=== PATIENT | male | born 1950 | race African-American/Black ===

== ENCOUNTER 2017-09-29 19:29 | Emergency (ER) | payer OTHER, MEDICARE ==
[2017-09-29] MEDS: ACETAMINOPHEN 500 MG TABLET PO (20:32)
[2017-09-29] MEDS: KETOROLAC 60 MG/2 ML INJ. IM (20:32)
== END 2017-09-29 20:53 | disposition home or self-care (01) ==
LOC: ER 19:29
DX: S13.4XXA Sprain of ligaments of cervical spine, initial encounter (principal); I10 Essential (primary) hypertension; E11.9 Type 2 diabetes mellitus without complications; Z88.0 Allergy status to penicillin; V43.52XA Car driver injured in collision with other type car in traffic accident, initial encounter; Y93.I9 Activity, other involving external motion; Y92.410 Unspecified street and highway as the place of occurrence of the external cause; Y99.8 Other external cause status
CPT/HCPCS: 96372; 99283; J1885

== ENCOUNTER 2020-01-13 11:20 | Inpatient (IN) | payer MEDICARE, OTHER ==
[~2020-01-13] VITALS: Ht 177.8 cm; Wt 109.0 kg
[~2020-01-13 11:20] MED LIST: ACET325T9 PO; DIAZ5TAB PO; HYDR-3164 PO; NAPR-683 PO; VALA10008 PO
[2020-01-13 12:26] LABS: BASO % 1 % (0-3); EOS % 1 % (0-3); HEMATOCRIT 35.8 % (39.0-53.0); HEMOGLOBIN 12.1 g/dL (13.0-17.5); LYMPH # 0.6 x10^3/uL (1.0-4.8); LYMPH % 8 % (24-48); MEAN CORPUSCULAR HEMOGLOBIN 29 pg (25-35); MEAN CORPUSCULAR HGB CONC 34 g/dL (31-37); MEAN CORPUSCULAR VOLUME 86 fL (79-100); MONO # 0.9 x10^3/uL (0.0-1.1); MONO % 12 % (0-9); NEUT # 5.7 x10^3/uL (1.8-7.7); NEUT % 79 % (31-73); PLATELET COUNT 238 x10^3/uL (140-400); RED BLOOD COUNT 4.14 x10^6/uL (4.30-5.70); RED CELL DISTRIBUTION WIDTH 14.6 % (11.5-14.5); WHITE BLOOD COUNT 7.2 x10^3/uL (4.0-11.0)
[2020-01-13 12:34] LABS: CALCIUM 7.7 mg/dL (8.5-10.1); CREATININE 3.9 mg/dL (0.7-1.3); GFR 18.5; POTASSIUM 3.5 mmol/L (3.5-5.1)
--- NOTE | 2020-01-13 12:36 | RAD ---
EXAM: AP View of the chest DATE: 01/13/2020 12:06 PM INDICATION: bilateral leg swelling hx of CHF COMPARISON: No Prior FINDINGS: Heart is borderline enlarged. Aorta is tortuous. Mild bilateral interstitial prominence. Trace bilateral pleural effusions. No pneumothorax. IMPRESSION: Borderline cardiomegaly with interstitial prominence and trace pleural effusions may be seen with early interstitial edema. No lobar consolidation Electronically signed by: Stoney Menendez MD (01/13/2020 12:32 PM) [id number]
[2020-01-13 12:37] LABS: PROTHROMBIN TIME PATIENT 13.9 SEC (11.7-14.0)
[2020-01-13 12:40] LABS: ALBUMIN 2.4 g/dL (3.4-5.0); ALBUMIN/GLOBULIN RATIO 0.6 (1.0-1.7); MAGNESIUM 1.8 mg/dL (1.8-2.4); TOTAL BILIRUBIN 0.3 mg/dL (0.2-1.0); TOTAL PROTEIN 6.6 g/dL (6.4-8.2)
--- NOTE | 2020-01-13 13:19 | PHYS DOC ---
Past Medical History Past Medical History: CHF, Diabetes-Type II, Hypertension Past Surgical History: No Surgical History Additional Past Surgical Histo: ROTATOR CUFF, THUMB, leg infection Smoking Status: Never Smoker Alcohol Use: Occasionally Drug Use: None General Adult EDM: Chief Complaint: LOWER EXTREMITY SWELLING HPI: HPI: Patient is a 69 year old AA male, accompanied by his significant other, who presents to the emergency department with complaints of bilateral leg swelling for the last week. Patient states that he has a history of congestive heart failure and he is supposed to take Lasix but he has been out of his medication for the last 2 weeks. Patient denies any shortness of breath, chest pain, palpitations, fever, cough, abdominal pain, nausea, vomiting, diarrhea, back pain, dysuria, difficulty voiding, hematuria, headache, numbness, tingling, or weakness. Patient denies any redness, warmth, or rash affecting his lower extremities. Patient denies any pain at this time. Patient denies any exposure to any known ill persons, he states that he has been keeping to himself with the onset of the COVID pandemic. His significant other states that yesterday the patient did have some confusion, he was talking to his daughter that lives here locally and mistook her for his daughter [place]. Patient is alert and oriented to person, place, day, and president at this time. He denies any confusion. Review of Systems: Review of Systems: Constitutional: Denies fever or chills. [] Eyes: Denies change in visual acuity. [] HENT: Denies nasal congestion or sore throat. [] Respiratory: Denies cough or shortness of breath. [] Cardiovascular: Denies chest pain or edema. [] GI: Denies abdominal pain, nausea, vomiting, bloody stools or diarrhea. [] : Denies dysuria. [] Musculoskeletal: Denies back pain or joint pain; see HPI [] Integument: Denies rash; see HPI. [] Neurologic: Denies headache, focal weakness or sensory changes; see HPI [] Endocrine: Denies polyuria or polydipsia. [] Lymphatic: Denies swollen glands. [] Psychiatric: Denies depression or anxiety. [] Heart Score: Risk Factors: Risk Factors: DM, Current or recent (<one month) smoker, HTN, HLP, family history of CAD, obesity. Risk Scores: Score 0 - 3: 2.5% MACE over next 6 weeks - Discharge Home Score 4 - 6: 20.3% MACE over next 6 weeks - Admit for Clinical Observation Score 7 - 10: 72.7% MACE over next 6 weeks - Early Invasive Strategies Allergies: Allergies: Allergies Coded Allergies Type Severity Reaction Last Updated Verified Penicillins Allergy Unknown 02/02/16 Yes Physical Exam: PE: Constitutional: Well developed, well nourished, no acute distress, non-toxic appearance, obese. [] HENT: Normocephalic, atraumatic, bilateral external ears normal, oropharynx moist, no oral exudates, nose normal. [] Eyes: PERRLA, EOMI, conjunctiva normal, no discharge, no nystagmus. [] Neck: Normal range of motion, no stridor. [] Cardiovascular:Heart rate regular rhythm, no murmur [] Lungs & Thorax: Bilateral breath sounds clear to auscultation, Respirations even and unlabored, no retractions, no respiratory distress [] Abdomen:soft, no tenderness, no masses, no pulsatile masses. [] Skin: Warm, dry, no erythema, no rash. [] Back: No tenderness Extremities: BLE: No tenderness, no cyanosis, no clubbing, ROM intact, 3+ edema bilateral lower extremities, no erythema, no weeping Neurologic: Alert and oriented X 3, normal motor function, normal sensory function, no focal deficits noted. [] Psychologic: Affect normal, judgement normal, mood normal. [] Current Patient Data: Labs: Laboratory Tests Test 01/13/20 11:50 White Blood Count 7.2 x10^3/uL (4.0-11.0) Red Blood Count 4.14 x10^6/uL (4.30-5.70) L Hemoglobin 12.1 g/dL (13.0-17.5) L Hematocrit 35.8 % (39.0-53.0) L Mean Corpuscular Volume 86 fL (79-100) Mean Corpuscular Hemoglobin 29 pg (25-35) Mean Corpuscular Hemoglobin Concent 34 g/dL (31-37) Red Cell Distribution Width 14.6 % (11.5-14.5) H Platelet Count 238 x10^3/uL (140-400) Neutrophils (%) (Auto) 79 % (31-73) H Lymphocytes (%) (Auto) 8 % (24-48) L Monocytes (%) (Auto) 12 % (0-9) H Eosinophils (%) (Auto) 1 % (0-3) Basophils (%) (Auto) 1 % (0-3) Neutrophils # (Auto) 5.7 x10^3/uL (1.8-7.7) Lymphocytes # (Auto) 0.6 x10^3/uL (1.0-4.8) L Monocytes # (Auto) 0.9 x10^3/uL (0.0-1.1) Eosinophils # (Auto) 0.0 x10^3/uL (0.0-0.7) Basophils # (Auto) 0.0 x10^3/uL (0.0-0.2) Prothrombin Time 13.9 SEC (11.7-14.0) Prothrombin Time INR 1.1 (0.8-1.1) Activated Partial Thromboplast Time 39 SEC (24-38) H Sodium Level 135 mmol/L (136-145) L Potassium Level 3.5 mmol/L (3.5-5.1) Chloride Level 100 mmol/L (98-107) Carbon Dioxide Level 24 mmol/L (21-32) Anion Gap 11 (6-14) Blood Urea Nitrogen 46 mg/dL (8-26) H Creatinine 3.9 mg/dL (0.7-1.3) H Estimated GFR (Cockcroft-Gault) 18.5 BUN/Creatinine Ratio 12 (6-20) Glucose Level 235 mg/dL (70-99) H Calcium Level 7.7 mg/dL (8.5-10.1) L Magnesium Level 1.8 mg/dL (1.8-2.4) Total Bilirubin 0.3 mg/dL (0.2-1.0) Aspartate Amino Transferase (AST) 26 U/L (15-37) Alanine Aminotransferase (ALT) 31 U/L (16-63) Alkaline Phosphatase 58 U/L (46-116) Troponin I Quantitative < 0.017 ng/mL (0.000-0.055) UU-Fbu-Z-Type Natriuretic Peptide 623 pg/mL (0-124) H Total Protein 6.6 g/dL (6.4-8.2) Albumin 2.4 g/dL (3.4-5.0) L Albumin/Globulin Ratio 0.6 (1.0-1.7) L Lipase 109 U/L (73-393) Laboratory Tests 01/13/20 11:50 Laboratory Tests 01/13/20 11:50 Vital Signs: Vital Signs Date Time Temp Pulse Resp B/P (MAP) Pulse Ox O2 Delivery O2 Flow Rate FiO2 01/13/20 11:25 98.9 103 16 173/103 (126) 97 Room Air 98.9 EKG: EK-sinus rhythm rate of 100 with leftward axis, QRS(T) Contour abnormality consider anterior lateral myocardial damage, no STEMI, read by Dr. Vázquez [] Radiology/Procedures: Radiology/Procedures: PROCEDURE: CHEST AP ONLY EXAM: AP View of the chest DATE: 01/13/2020 12:06 PM INDICATION: bilateral leg swelling hx of CHF COMPARISON: No Prior FINDINGS: Heart is borderline enlarged. Aorta is tortuous. Mild bilateral interstitial prominence. Trace bilateral pleural effusions. No pneumothorax. IMPRESSION: Borderline cardiomegaly with interstitial prominence and trace pleural effusions may be seen with early interstitial edema. No lobar consolidation[] Course & Med Decision Making: Course & Med Decision Making Pertinent Labs and Imaging studies reviewed. (See chart for details)[id number] with Dr. Miller who is the admitting physician, and care was ass umed following discussion of patient. Will consult nephrology and cardiology for this patient. Patient's vital signs stable. Patient remains afebrile, appears nontoxic, respirations even and unlabored. Patient will be admitted to the med telemetry floor. Patient's case and plan of care also discussed with Dr. Gurpreet Pal Disclaimer: Demarco Disclaimer: This electronic medical record was generated, in whole or in part, using a voice recognition dictation system. Departure Departure Impression: Primary Impression: CHF (congestive heart failure) Qualified Codes: I50.9 - Heart failure, unspecified Additional Impressions: CRF (chronic renal failure) Qualified Codes: N18.9 - Chronic kidney disease, unspecified Bilateral lower extremity edema Disposition: ADMITTED INPATIENT Admitting Physician: PK Olmedo) Condition: STABLE Referrals: UNKNOWN PCP NAME (PCP) Justicifation of Admission Dx: Justifications for Admission: Justification of Admission Dx: Yes Chronic Renal Failure: Other (ble edema) JASPER JIANG VAPOR COATER Jan 13, 2020 13:19
--- NOTE | 2020-01-13 13:41 | RAD ---
Examination: Bilateral venous Doppler Indication: Leg swelling Technique: Ultrasound evaluation of the bilateral lower extremities was performed from the groin to the upper calf with mcclendon scale, spectral and color doppler evaluation. Comparison: None Findings: There is normal venous flow and compressibility of bilateral common femoral veins, femoral veins, popliteal veins, and visualized proximal calf veins. Impression: No evidence for deep vein thrombosis of bilateral lower extremities from the level of the calf veins to the groins. Electronically signed by: Stoney Menendez MD (01/13/2020 1:38 PM) [id number]
--- NOTE | 2020-01-13 13:57 | EKG ---
[facility] [address] [place] [address] Test Date: 2020-01-13 Test Time: 12:32:00 Pat Name: JOSEFA SHANNON Department: Room: 648 1 Gender: M Field Checker: : 1950 Requested By: JASPER JIANG Order Number: [id number] Reading MD: Artemio He MD Measurements Intervals Pillow Rate: 100 P: 24 IN: 176 QRS: -26 QRSD: 84 T: 61 QT: 356 QTc: 462 Interpretive Statements SINUS RHYTHM LAD NON-SPECIFIC ST/T CHANGES Electronically Signed On 01-14-2020 11:18:12 CDT by Artemio He MD
[2020-01-13 15:00] VITALS: BP 153/92
--- NOTE | 2020-01-13 15:00 | NUR ---
Pt arrived on unit by bed from ER at approx 1500. Pt ambulated to bathroom and voided. Water provided, call light within reach, and upper bedrails up. Pt denying pain at this time, no additional requests made. This RN will assume care of this pt and monitor closely.
[2020-01-13] MEDS ORDERED: METF10007 PO (16:24)
[2020-01-13] MEDS ORDERED: AMLO10TA8 PO (16:25)
[2020-01-13 19:40] VITALS: BP 177/106
[2020-01-13] MEDS: ACETAMINOPHEN 325 MG TABLET. PO PRN (20:44)
[2020-01-13] MEDS: METOPROLOL TART IMMED RELEASE 25 MG TABLET. PO SCH (20:44)
--- NOTE | 2020-01-13 22:27 | HP ---
ADMIT DATE: 01/13/2020 CHIEF COMPLAINT: Lower extremity edema. HISTORY OF PRESENT ILLNESS: The patient is a pleasant 69-year-old male who apparently has not been taking his medications as prescribed. He states he has been out of Lasix for at least 2 weeks. He presents with lower extremity edema. While in the Emergency Room, we noticed that his pressure is quite high at 179/104. He also has 2-3+ edema. His creatinine is also bumped at 3.9. He is slightly anemic with a hemoglobin of 12.1 slightly hyponatremic with a sodium of 135. His BNP level is also high at 639. Chest x-ray showing cardiomegaly with some pulmonary edema. I discussed the case with Emergency Room physician. We are going to admit the patient to treat for near end-stage renal disease and heart failure. PAST MEDICAL HISTORY: Severe noncompliance, diabetes, hypertension, congestive heart failure, rotator cuff surgery, thumb surgery, leg surgery after an infection in his leg. ALLERGIES: PENICILLIN. FAMILY HISTORY: Diabetes. SOCIAL HISTORY: He does not drink, smoke or take drugs. MEDICATIONS: Reviewed, please refer to the MRAD. REVIEW OF SYSTEMS: GENERAL: No history of weight change, weakness or fevers. SKIN: No bruising, hair changes or rashes. EYES: No blurred, double or loss of vision. NOSE AND THROAT: No history of nosebleeds, hoarseness or sore throat. HEART: No history of palpitations, chest pain or shortness of breath on exertion. PULMONARY: He complains of shortness of breath. GASTROINTESTINAL: Denies changes in appetite, nausea, vomiting, diarrhea or constipation. GENITOURINARY: No history of frequency, urgency, hesitancy or nocturia. NEUROLOGIC: Denies history of numbness, tingling, tremor or weakness. PSYCHIATRIC: No history of panic, anxiety or depression. ENDOCRINE: No history of heat or cold intolerance, polyuria or polydipsia. EXTREMITIES: He complains of edema. PHYSICAL EXAMINATION: VITALS: Within normal limits and are stable. GENERAL: No apparent distress. Alert and oriented. HEENT: Normal cephalic atraumatic, external auditory canals are patent EYES: Extraocular muscles are intact, pupils are equally round and reactive to light and accommodation MUSKULOSKELETAL: Well developed, well nourished, good range of motion ENDOCRINE: No thyromegaly was palpated LYMPHATICS: No cervical chain or axillary nodes were noted HEMATOPOIETIC: No bruising NECK: Supple, no JVD, no thyromegaly was noted. PULMONARY: He has bibasilar crackles. HEART: RRR, S1, S2 present. Peripheral pulses intact, no obvious murmurs were noted. ABDOMEN: Soft, nontender. Positive bowel sounds no organomegaly, normal bowel sounds. EXTREMITIES: He has 3+ edema. NEUROLOGIC: Normal speech, normal tone. A & O x3, moves all extremities, no obvious focal deficits. PSYCHIATRIC: He appears depressed. SKIN: No ulcerations or rashes, good skin turgor, no jaundice. VASCULAR: Good capillary refill, neurovascular bundle appears to be intact. LABORATORY DATA: Sodium is 135, creatinine is 3.9, BUN 46. Troponin is 0. BNP 623, hemoglobin is 12.1, INR is 1.1. ASSESSMENT AND PLAN: [id number] systolic and diastolic heart failure, chronic renal failure, anemia, hyponatremia; patient is being admitted. We will consult Cardiology and Nephrology. I would like to try to diurese him, but I am afraid we might bump his creatinine again further. We will hold off until morning and see how the consultants would like to approach this; trend his labs. We will try to resume his home medications, deep venous thrombosis prophylaxis. Full code. Lactic acid level, serial enzymes, serial EKGs. Suspect he will need an echocardiogram. Fall precautions sequential compression devices, p.r.n. Tylenol. I have ordered some metoprolol 25 b.i.d. Long-term prognosis is extremely guarded. RYLEE HERNANDEZ DO DR: JESS/aron JOB#: [id number] / [id number]
[2020-01-13 23:44] VITALS: BP 172/92
[2020-01-14 00:49] LABS: BILIRUBIN,URINE NEGATIVE (NEG); CLARITY,URINE CLEAR; COLOR,URINE YELLOW; NITRITE,URINE NEGATIVE (NEG); PH,URINE 5.5 (<5.0-8.0); PROTEIN,URINE >=300 mg/dL (NEG-TRACE)
[2020-01-14 01:19] LABS: BACTERIA,URINE 0 /HPF (0-FEW); HYALINE CASTS, URINE FEW /HPF; SQUAMOUS EPITHELIAL CELL,UR FEW /LPF
[2020-01-14 03:10] VITALS: BP 145/80
[2020-01-14 07:34] VITALS: BP 153/92
[2020-01-14] MEDS: METOPROLOL TART IMMED RELEASE 25 MG TABLET. PO SCH ×2 (07:54→21:00)
--- NOTE | 2020-01-14 10:02 | PDOC ---
[facility] PROGRESS NOTE Chief Complaint Chief Complaint Acute on chronic systolic and diastolic heart failure Severe edema Hyponatremia Severe renal failure Severe noncompliance, diabetes, hypertension, congestive heart failure, rotator cuff surgery, thumb surgery, leg surgery after an infection in his leg. History of Present Illness History of Present Illness 01/14/2020 Patient seen and examined He is still edematous and short of breath Family present Discussed with RN We are going to check a post void residual and place a Freitas if necessary Chart reviewed Vitals/I&O Vitals/I&O: Vital Signs Date Time Temp Pulse Resp B/P (MAP) Pulse Ox O2 Delivery O2 Flow Rate FiO2 01/14/20 08:00 Nasal Cannula 2.0 01/14/20 07:54 87 153/92 01/14/20 07:34 99.3 22 94 99.3 I & O 01/13/20 01/13/20 01/14/20 15:00 23:00 07:00 Intake Total 100 ml 60 ml Output Total 300 ml 450 ml Balance -200 ml -390 ml Physical Exam General: Alert, mild distress Heart: Regular rate Lungs: Crackles Abdomen: Normal bowel sounds, Other (Distended) Extremities: Other Skin: No rashes, No breakdown Labs Labs: Laboratory Tests Test 01/13/20 11:50 01/13/20 12:50 01/14/20 00:15 White Blood Count 7.2 x10^3/uL (4.0-11.0) Red Blood Count 4.14 x10^6/uL (4.30-5.70) Hemoglobin 12.1 g/dL (13.0-17.5) Hematocrit 35.8 % (39.0-53.0) Mean Corpuscular Volume 86 fL (79-100) Mean Corpuscular Hemoglobin 29 pg (25-35) Mean Corpuscular Hemoglobin Concent 34 g/dL (31-37) Red Cell Distribution Width 14.6 % (11.5-14.5) Platelet Count 238 x10^3/uL (140-400) Neutrophils (%) (Auto) 79 % (31-73) Lymphocytes (%) (Auto) 8 % (24-48) Monocytes (%) (Auto) 12 % (0-9) Eosinophils (%) (Auto) 1 % (0-3) Basophils (%) (Auto) 1 % (0-3) Neutrophils # (Auto) 5.7 x10^3/uL (1.8-7.7) Lymphocytes # (Auto) 0.6 x10^3/uL (1.0-4.8) Monocytes # (Auto) 0.9 x10^3/uL (0.0-1.1) Eosinophils # (Auto) 0.0 x10^3/uL (0.0-0.7) Basophils # (Auto) 0.0 x10^3/uL (0.0-0.2) Prothrombin Time 13.9 SEC (11.7-14.0) Prothromb Time International Ratio 1.1 (0.8-1.1) Activated Partial Thromboplast Time 39 SEC (24-38) Sodium Level 135 mmol/L (136-145) Potassium Level 3.5 mmol/L (3.5-5.1) Chloride Level 100 mmol/L (98-107) Carbon Dioxide Level 24 mmol/L (21-32) Anion Gap 11 (6-14) Blood Urea Nitrogen 46 mg/dL (8-26) Creatinine 3.9 mg/dL (0.7-1.3) Estimated GFR (Cockcroft-Gault) 18.5 BUN/Creatinine Ratio 12 (6-20) Glucose Level 235 mg/dL (70-99) Calcium Level 7.7 mg/dL (8.5-10.1) Magnesium Level 1.8 mg/dL (1.8-2.4) Total Bilirubin 0.3 mg/dL (0.2-1.0) Aspartate Amino Transf (AST/SGOT) 26 U/L (15-37) Alanine Aminotransferase (ALT/SGPT) 31 U/L (16-63) Alkaline Phosphatase 58 U/L (46-116) Troponin I Quantitative < 0.017 ng/mL (0.000-0.055) JF-Pln-O-Type Natriuretic Peptide 623 pg/mL (0-124) Total Protein 6.6 g/dL (6.4-8.2) Albumin 2.4 g/dL (3.4-5.0) Albumin/Globulin Ratio 0.6 (1.0-1.7) Lipase 109 U/L (73-393) Lactic Acid Level 0.9 mmol/L (0.4-2.0) Urine Collection Type Unknown Urine Color Yellow Urine Clarity Clear Urine pH 5.5 (<5.0-8.0) Urine Specific Riparius 1.015 (1.000-1.030) Urine Protein >=300 mg/dL (NEG-TRACE) Urine Glucose (UA) Negative mg/dL (NEG) Urine Ketones (Stick) Negative mg/dL (NEG) Urine Blood Negative (NEG) Urine Nitrite Negative (NEG) Urine Bilirubin Negative (NEG) Urine Urobilinogen Dipstick 1.0 mg/dL (0.2 mg/dL) Urine Leukocyte Esterase Negative (NEG) Urine RBC 1-2 /HPF (0-2) Urine WBC 1-4 /HPF (0-4) Urine Squamous Epithelial Cells Few /LPF Urine Bacteria 0 /HPF (0-FEW) Urine Hyaline Casts Few /HPF Urine Mucus Slight /LPF Review of Systems Review of Systems: Complains of shortness of breath and weakness and edema Assessment and Plan Assessmemt and Plan Problems Medical Problems: (1) Bilateral lower extremity edema Status: Acute (2) CHF (congestive heart failure) Status: Acute (3) CRF (chronic renal failure) Status: Acute Acute on chronic systolic and diastolic heart failure Severe edema Hyponatremia Severe hypertension Severe renal failure Severe noncompliance with diet and meds, diabetes, hypertension, congestive heart failure, rotator cuff surgery, thumb surgery, leg surgery after an infection in his leg. Plan Awaiting subspecialist input Considering Lasix but I am concerned about his kidney function I am having the nurse check a post void residual perhaps he has BPH? (Then we could place a Freitas) Trend labs Cardiac monitoring Serial enzymes serial EKGs Considering echocardiogram Considering ultrasound of the kidneys As needed O2 DVT prophylaxis Home meds Full code Long-term prognosis extremely guarded Total time 32 Comment Review of Relevant I have reviewed the following items reji (where applicable) has been applied. Medications: Current Medications Medications (Trade) Dose Ordered Sig/Julián Route PRN Reason Start Time Stop Time Status Last Admin Dose Admin Metoprolol Tartrate (Lopressor) 25 mg BID PO 01/13/20 21:00 01/14/20 07:54 Acetaminophen (Tylenol) 650 mg PRN Q6HRS PRN PO MILD PAIN / TEMP > 100.3'F 01/13/20 20:15 01/13/20 20:44 Justicifation of Admission Dx: Justifications for Admission: Justification of Admission Dx: Yes Respiratory Failure: Severe Resp Distress Chronic Renal Failure: Electrolyte Abnormality RYLEE HERNANDEZ III DO Jan 14, 2020 10:02
--- NOTE | 2020-01-14 11:22 | NUR ---
SW following for discharge planning. Reviewed chart and coordinated care with RN. SW met with pt and family at bedside. Pt stated he lives at home with his and stated no concerns about returning home at discharge. Pt stated he drives. Pt on 2l 02 and will need 02 setup if 02 is needed at discharge. SW following for potential new dialysis setup. Pt on oral medications at this time. SW to continue following.
[2020-01-14 11:25] VITALS: BP 162/97
--- NOTE | 2020-01-14 11:41 | CONS ---
DATE OF CONSULTATION: 01/14/2020 REASON FOR CONSULTATION: Heart failure. HISTORY OF PRESENT ILLNESS: The patient is a very pleasant 69-year-old man who presents to the hospital in the setting of progressive dyspnea and lower extremity swelling. He reports over the course of the last several weeks, he has had intermittent worsening of cough and dyspnea. He also reports lower extremity edema. He has not had any arrhythmias or subjective palpitations. He has not had any syncope. He at baseline is able to mow his yard using a riding mower, but he does not participate in any other activities of daily living. He is mostly living a sedentary lifestyle. He reports compliance with his medications for hypertension. PAST MEDICAL HISTORY: 1. Hypertension. 2. Diabetes. 3. History of diastolic heart failure based on family description. 4. History of noncompliance. ALLERGIES: PENICILLIN. FAMILY HISTORY: Notable for diabetes. SOCIAL HISTORY: No alcohol, tobacco or illicit drug use. He lives at home with his . Today in the room, his daughter and his sister were present. CURRENT CARDIOVASCULAR MEDICATIONS: Metoprolol tartrate 25 mg p.o. b.i.d. REVIEW OF SYSTEMS: Negative for 10 out of 14 systems reviewed, unless otherwise mentioned above in HPI. PHYSICAL EXAMINATION: VITAL SIGNS: Afebrile, 87, 22, 153/92, 94% on 2 liters nasal cannula. GENERAL: He is alert and oriented, no acute distress. HEAD AND NECK: Unremarkable. CARDIAC: Regular rate and rhythm without murmurs, rubs or gallops. LUNGS: With decreased breath sounds at bases. ABDOMEN: Obese, protuberant, nontender. EXTREMITIES: 2+ radial pulses with 1+ edema of the lower extremities. NEUROLOGIC: No focal deficits. MUSCULOSKELETAL: No trauma. SKIN: No rashes. DIAGNOSTIC STUDIES: Hemoglobin, platelets within normal limits. Creatinine is elevated at 3.9. Troponin is negative. EKG is unremarkable. BNP is mildly elevated at 623. Chest x-ray is suggestive of mild pulmonary edema and pleural effusions. Echocardiogram is pending. IMPRESSION: 1. Acute on chronic diastolic heart failure in the setting of chronic kidney disease and hypertension. 2. Diabetes. 3. Morbid obesity. RECOMMENDATIONS: 1. At this present time, agree with a renal consultation and diuresis with Lasix as tolerated. 2. We will plan for a routine echocardiogram to assess his LV systolic function. 3. We could consider a right heart catheterization depending on renal input. 4. Continue aggressive treatment for his diabetes. He could use hydralazine and Imdur for blood pressure management, incentive MELITA inhibitor depending on what his chronic kidney disease status is. Thank you for this consultation. MARCOS FENTON MD DR: ALESSANDRA/aron JOB#: [id number] / [id number]
--- NOTE | 2020-01-14 13:50 | PDOC2 ---
CONSULT Date of Consult Date of Consult DATE: 01/14/20 TIME: 13:32 Reason for Consult Reason for Consult: WAYNE Source Source: Chart review, Patient History of Present Illness Reason for Visit: Pt is a 69- AAM who presents to the hospital in the setting of progressive dyspnea and lower extremity swelling. He reports over the course of the last several weeks, he has had intermittent worsening of cough and dyspnea and lower extremity edema. He is mostly living a sedentary lifestyle. Denies any CP , currently No SOb at rest. Denies any N/V/D . No Urinary complaints. Denies use of NSAID's . No Hx of Nephrolithiasis or BPH Past Medical History Past Medical History Hypertension. Diabetes. History of diastolic heart failure based on family description. History of noncompliance. Family History Family History Notable for diabetes. Social History Social History No alcohol, tobacco or illicit drug use. He lives at home with his . Current Problem List Problem List Problems Medical Problems: (1) Bilateral lower extremity edema Status: Acute (2) CHF (congestive heart failure) Status: Acute (3) CRF (chronic renal failure) Status: Acute Current Medications Current Medications Current Medications Metoprolol Tartrate (Lopressor) 25 mg BID PO Last administered on 01/14/20at 07:54; Start 01/13/20 at 21:00 Acetaminophen (Tylenol) 650 mg PRN Q6HRS PRN PO MILD PAIN / TEMP > 100.3'F Last administered on 01/13/20at 20:44; Start 01/13/20 at 20:15 Active Scripts Active Reported Amlodipine Besylate 10 Mg Tablet 10 Mg PO DAILY Metformin Hcl 1,000 Mg Tablet 1,000 Mg PO BIDWMEALS Allergies Allergies: Coded Allergies: Penicillins (Verified Allergy, Unknown, 02/02/16) ROS Review of System Negative for 10 out of 14 systems reviewed, unless otherwise mentioned above in HPI. Physical Exam Physical Exam GENERAL: , no acute distress. HEAD AND NECK: Unremarkable, OM moist, O2 2 lts by NC CARDIAC: Regular rate and rhythm without murmurs, rubs or gallops. LUNGS: With decreased breath sounds at bases., no use of accessory muscles ABDOMEN: Obese, nontender. EXTREMITIES: Trace LE edema NEUROLOGIC: No focal deficits. MUSCULOSKELETAL: No trauma. SKIN: No rashes No Freitas, No CVA or SP tenderness Vital Signs Vital Signs Date Time Temp Pulse Resp B/P (MAP) Pulse Ox O2 Delivery O2 Flow Rate FiO2 01/14/20 11:25 99.0 82 20 162/97 (118) 94 Nasal Cannula 2.0 99.0 Assessment & Plan WAYNE- ATN/Cardiorenal/ r/o Post Obstructive Baseline unknown to me , UA unremarkable except for Overt proteinuria Pt Not aware of Dx of Kidney disease , No labs this am Recommend renal US,Pr/Cr ratio , Bladder scan, Freitas if retention , Avoid nephrotoxins , Supportive care, strict I/O , Daily standing weight , daily Labs HypoNatremia - Corrected for high Glucose Na Normal DM - Only on Metformin per Home list Acute on chronic diastolic heart failure in the setting of chronic kidney disease and hypertension. CxR suggestive of mild pulmonary edema and pleural effusions., Echo pending , clinically stable Diuretics cardiology managing, Morbid obesity Labs Labs Laboratory Tests Test 01/13/20 11:50 01/13/20 12:50 01/14/20 00:15 01/14/20 11:44 White Blood Count 7.2 x10^3/uL (4.0-11.0) Red Blood Count 4.14 x10^6/uL (4.30-5.70) Hemoglobin 12.1 g/dL (13.0-17.5) Hematocrit 35.8 % (39.0-53.0) Mean Corpuscular Volume 86 fL (79-100) Mean Corpuscular Hemoglobin 29 pg (25-35) Mean Corpuscular Hemoglobin Concent 34 g/dL (31-37) Red Cell Distribution Width 14.6 % (11.5-14.5) Platelet Count 238 x10^3/uL (140-400) Neutrophils (%) (Auto) 79 % (31-73) Lymphocytes (%) (Auto) 8 % (24-48) Monocytes (%) (Auto) 12 % (0-9) Eosinophils (%) (Auto) 1 % (0-3) Basophils (%) (Auto) 1 % (0-3) Neutrophils # (Auto) 5.7 x10^3/uL (1.8-7.7) Lymphocytes # (Auto) 0.6 x10^3/uL (1.0-4.8) Monocytes # (Auto) 0.9 x10^3/uL (0.0-1.1) Eosinophils # (Auto) 0.0 x10^3/uL (0.0-0.7) Basophils # (Auto) 0.0 x10^3/uL (0.0-0.2) Prothrombin Time 13.9 SEC (11.7-14.0) Prothromb Time International Ratio 1.1 (0.8-1.1) Activated Partial Thromboplast Time 39 SEC (24-38) Sodium Level 135 mmol/L (136-145) Potassium Level 3.5 mmol/L (3.5-5.1) Chloride Level 100 mmol/L (98-107) Carbon Dioxide Level 24 mmol/L (21-32) Anion Gap 11 (6-14) Blood Urea Nitrogen 46 mg/dL (8-26) Creatinine 3.9 mg/dL (0.7-1.3) Estimated GFR (Cockcroft-Gault) 18.5 BUN/Creatinine Ratio 12 (6-20) Glucose Level 235 mg/dL (70-99) Calcium Level 7.7 mg/dL (8.5-10.1) Magnesium Level 1.8 mg/dL (1.8-2.4) Total Bilirubin 0.3 mg/dL (0.2-1.0) Aspartate Amino Transf (AST/SGOT) 26 U/L (15-37) Alanine Aminotransferase (ALT/SGPT) 31 U/L (16-63) Alkaline Phosphatase 58 U/L (46-116) Troponin I Quantitative < 0.017 ng/mL (0.000-0.055) MF-Bls-T-Type Natriuretic Peptide 623 pg/mL (0-124) Total Protein 6.6 g/dL (6.4-8.2) Albumin 2.4 g/dL (3.4-5.0) Albumin/Globulin Ratio 0.6 (1.0-1.7) Lipase 109 U/L (73-393) Lactic Acid Level 0.9 mmol/L (0.4-2.0) Urine Collection Type Unknown Urine Color Yellow Urine Clarity Clear Urine pH 5.5 (<5.0-8.0) Urine Specific [place] 1.015 (1.000-1.030) Urine Protein >=300 mg/dL (NEG-TRACE) Urine Glucose (UA) Negative mg/dL (NEG) Urine Ketones (Stick) Negative mg/dL (NEG) Urine Blood Negative (NEG) Urine Nitrite Negative (NEG) Urine Bilirubin Negative (NEG) Urine Urobilinogen Dipstick 1.0 mg/dL (0.2 mg/dL) Urine Leukocyte Esterase Negative (NEG) Urine RBC 1-2 /HPF (0-2) Urine WBC 1-4 /HPF (0-4) Urine Squamous Epithelial Cells Few /LPF Urine Bacteria 0 /HPF (0-FEW) Urine Hyaline Casts Few /HPF Urine Mucus Slight /LPF Glucose (Fingerstick) 113 mg/dL (70-99) Laboratory Tests Test 01/14/20 00:15 01/14/20 11:44 Urine Collection Type Unknown Urine Color Yellow Urine Clarity Clear Urine pH 5.5 (<5.0-8.0) Urine Specific [place] 1.015 (1.000-1.030) Urine Protein >=300 mg/dL (NEG-TRACE) Urine Glucose (UA) Negative mg/dL (NEG) Urine Ketones (Stick) Negative mg/dL (NEG) Urine Blood Negative (NEG) Urine Nitrite Negative (NEG) Urine Bilirubin Negative (NEG) Urine Urobilinogen Dipstick 1.0 mg/dL (0.2 mg/dL) Urine Leukocyte Esterase Negative (NEG) Urine RBC 1-2 /HPF (0-2) Urine WBC 1-4 /HPF (0-4) Urine Squamous Epithelial Cells Few /LPF Urine Bacteria 0 /HPF (0-FEW) Urine Hyaline Casts Few /HPF Urine Mucus Slight /LPF Glucose (Fingerstick) 113 mg/dL (70-99) Review All relevant outside records, renal labs, imaging studies, telemetry/EKG's were reviewed. Images Images Borderline cardiomegaly with interstitial prominence and trace pleural effusions may be seen with early interstitial edema. No lobar consolidation MARTINEZ GANT MD Jan 14, 2020 13:50
--- NOTE | 2020-01-14 15:00 | CARD ---
MR#: [id number] Date of Study: 01/14/2020 Ordering Physician: MARCOS FENTON, Referring Physician: MARCOS FENTON, Tech: Sweetie Sullivan [facility] APPROVED REPORT EXAM: Two-dimensional and M-mode echocardiogram with Doppler and color Doppler. Other Information Quality : Fair INDICATION Heart Failure 2D DIMENSIONS RVDd2.6 (2.9-3.5cm)Left Atrium(2D)4.0 (1.6-4.0cm) IVSd1.4 (0.7-1.1cm)Aortic Root(2D)2.9 (2.0-3.7cm) LVDd4.6 (3.9-5.9cm)LVOT Diameter2.2 (1.8-2.4cm) PWd1.4 (0.7-1.1cm)LVDs3.7 (2.5-4.0cm) FS (%) 21.4 %SV43.3 ml LVEF(%)45.0 (>50%) Aortic Valve AoV Peak Jigar.178.2cm/sAoV VTI26.1cm AO Peak GR.12.7mmHgLVOT Peak Jigar.114.3cm/s AO Mean GR.7mmHgAVA (VMAX)2.34cm2 BRADLEY (VTI)2.80cm2 Mitral Valve MV E Wtiwxavv072.7cm/sMV DECEL BPZN432sh MV A Tdkglrnt236.9cm/sE/A Ratio1.1 Pulmonary Vein S1 Czbovzzz16.0cm/sD2 Rxrfqfbs30.0cm/s LEFT VENTRICLE The left ventricle is normal size. There is mild to moderate concentric left ventricular hypertrophy. Left ventricle systolic function is normal. The Ejection Fraction is 55%. There is normal LV segment al wall motion. RIGHT VENTRICLE The right ventricle is normal size. The right ventricular systolic function is normal. ATRIA The left atrium is mildly dilated. The right atrium size is normal. The interatrial septum is intact with no evidence for an atrial septal defect or patent foramen ovale as noted on 2-D or Doppler imagi ng. AORTIC VALVE The aortic valve is mildly thickened but opens well. Doppler and Color Flow revealed trace to mild ao rtic regurgitation. There is no significant aortic valvular stenosis. MITRAL VALVE The mitral valve is calcified but opens well. Mitral annular calcification is mild. There is no evide nce of mitral valve prolapse. There is no mitral valve stenosis. Doppler and Color-flow revealed trac e mitral regurgitation. TRICUSPID VALVE The tricuspid valve is normal in structure and function. Doppler and Color Flow revealed trace tricus pid regurgitation. There is no tricuspid valve stenosis. PULMONIC VALVE The pulmonic valve is not well visualized. Doppler and Color Flow revealed no pulmonic valvular regur gitation. There is no pulmonic valvular stenosis. GREAT VESSELS The aortic root is normal in size. The ascending aorta is normal in size. The IVC is normal in size a nd collapses >50% with inspiration. PERICARDIAL EFFUSION There is no evidence of significant pericardial effusion. Critical Notification Critical Value: No <Conclusion> Left ventricle systolic function is normal. The Ejection Fraction is 55%. There is normal LV segmental wall motion. Trace to mild aortic regurgitation. Trace mitral regurgitation. Trace tricuspid regurgitation. There is no evidence of significant pericardial effusion. Signed by : Lev Smith, Electronically Approved : 01/14/2020 15:00:01
[2020-01-14 15:15] VITALS: BP 156/87
--- NOTE | 2020-01-14 15:37 | RAD ---
EXAM: Renal sonogram. HISTORY: Renal insufficiency. TECHNIQUE: Sonographic imaging of the kidneys and bladder was performed. COMPARISON: None. FINDINGS: The kidneys are normal in size. There are simple appearing bilateral renal cysts, the largest of which on the right measures 3.8 cm and the largest of which on the left measures 7.1 cm. No solid renal lesion is seen. There is no hydronephrosis. There is a Freitas catheter within the urinary bladder. IMPRESSION: 1. Multiple simple appearing renal cysts. 2. No hydronephrosis. Electronically signed by: Bessie Johnson MD (01/14/2020 3:34 PM) [facility]
[2020-01-14 15:51] LABS: CREATININE,RANDOM URINE 118.9 mg/dL (Not Establ.)
[2020-01-14 19:40] VITALS: BP 161/99
[2020-01-14] MEDS: ACETAMINOPHEN 325 MG TABLET. PO PRN (22:54)
[2020-01-15] VITALS (7 sets, daily range): BP systolic 161–188; BP diastolic 91–104
[2020-01-15 04:31] LABS: ALBUMIN 1.9 g/dL (3.4-5.0); CALCIUM 7.7 mg/dL (8.5-10.1); CREATININE 3.8 mg/dL (0.7-1.3); GFR 19.1; PHOSPHORUS 4.4 mg/dL (2.6-4.7); POTASSIUM 3.2 mmol/L (3.5-5.1)
[2020-01-15] MEDS: amLODIPine BESYLATE 10 MG TABLET PO SCH (08:26)
[2020-01-15] MEDS: METOPROLOL TART IMMED RELEASE 25 MG TABLET. PO SCH (08:28)
--- NOTE | 2020-01-15 09:46 | PDOC ---
SUBJECTIVE ROS No complaints by Pt, Per Rn last evening pt confused , more short of breath, better after eating Food Daughter feels he is little more sob but LE edema much improved OBJECTIVE Vital Signs Vital Signs Date Time Temp Pulse Resp B/P (MAP) Pulse Ox O2 Delivery O2 Flow Rate FiO2 01/15/20 08:28 83 172/101 01/15/20 08:00 Nasal Cannula 2.0 01/15/20 07:26 99.8 20 91 99.8 I & 0 Intake and Output 01/15/20 07:00 Intake Total 840 ml Output Total 1950 ml Balance -1110 ml Intake Oral 840 ml Output Urine Total 1950 ml PHYSICAL EXAM Physical Exam GENERAL: Mild distress HEAD AND NECK: Unremarkable, OM moist, O2 2 lts by NC CARDIAC: Regular rate and rhythm without murmurs, rubs or gallops. LUNGS: decreased breath sounds at bases., ABDOMEN: Obese, nontender. EXTREMITIES: Trace LE edema NEUROLOGIC: No focal deficits. MUSCULOSKELETAL: No trauma. SKIN: No rashes matthews + DIAGNOSIS/ASSESSMENT Assessment & Plan WAYNE- ATN/ stable renal function Baseline unknown to me , UA unremarkable except for Overt proteinuria Pt Not aware of Dx of Kidney disease , Obtain recent labs from PCP's office no hydronephrosis on Renal US, Avoid nephrotoxins , Supportive care, strict I/O , Daily standing weight , daily Labs Renal Cysts - simple appearing bilateral renal cysts, the largest of which on the right measures 3.8 cm and the largest of which on the left measures 7.1 cm. No solid renal lesion is seen. Suspect CKD - Hx of HTN and DM Overt proteinuria + , Pr/Cr 2 gms , No Micr hematuria DM - Only on Metformin per Home list HTN Acute on chronic diastolic heart failure in the setting of chronic kidney disease and hypertension. CxR suggestive of mild pulmonary edema and pleural effusions., Echo pending , clinically stable IV Lasix x1 today, Monitor closely, adjust dose as clinically indicated , Dw Cardiology and Daughter at bedside Morbid obesity Discussed with Pt and daughter at bedside COMMENT/RELEVANT DATA Meds Current Medications Medications (Trade) Dose Ordered Sig/Julián Start Time Stop Time Status Last Admin Dose Admin Acetaminophen (Tylenol) 650 mg PRN Q6HRS PRN 01/13/20 20:15 01/14/20 22:54 650 MG Amlodipine Besylate (Norvasc) 10 mg DAILY 01/15/20 09:00 01/15/20 08:26 10 MG Metoprolol Tartrate (Lopressor) 25 mg BID 01/13/20 21:00 01/15/20 08:28 25 MG Lab Laboratory Tests Test 01/14/20 11:44 01/14/20 15:02 01/14/20 16:34 01/14/20 20:59 Glucose (Fingerstick) 113 mg/dL (70-99) 133 mg/dL (70-99) 208 mg/dL (70-99) Urine Random Creatinine 118.9 mg/dL (Not Establ.) Urine Random Total Protein 243.9 mg/dL (Not Establ.) Urine Protein/Creatinine Ratio 2051 mg/g (0-200) Test 01/15/20 02:50 01/15/20 06:58 Sodium Level 137 mmol/L (136-145) Potassium Level 3.2 mmol/L (3.5-5.1) Chloride Level 101 mmol/L (98-107) Carbon Dioxide Level 25 mmol/L (21-32) Anion Gap 11 (6-14) Blood Urea Nitrogen 40 mg/dL (8-26) Creatinine 3.8 mg/dL (0.7-1.3) Estimated GFR (Cockcroft-Gault) 19.1 Glucose Level 146 mg/dL (70-99) Calcium Level 7.7 mg/dL (8.5-10.1) Phosphorus Level 4.4 mg/dL (2.6-4.7) Albumin 1.9 g/dL (3.4-5.0) Glucose (Fingerstick) 146 mg/dL (70-99) Results All relevant outside records, renal labs, imaging studies, telemetry/EKG's were reviewed. Justicifation of Admission Dx: Justifications for Admission: Justification of Admission Dx: Yes Respiratory Failure: Severe Resp Distress Chronic Renal Failure: Electrolyte Abnormality MARTINEZ GANT MD Jan 15, 2020 09:46
--- NOTE | 2020-01-15 10:03 | PDOC ---
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 01/15/20 1003: CARDIO Progress Notes Date and Time Date of Service 01/15/20 Time of Evaluation 1000 Subjective Subjective: No Chest Pain, No Palpitations, No Dizziness, Other (more SOA today.) Vitals Vitals Vital Signs Date Time Temp Pulse Resp B/P (MAP) Pulse Ox O2 Delivery O2 Flow Rate FiO2 01/15/20 08:28 83 172/101 01/15/20 08:00 Nasal Cannula 2.0 01/15/20 07:26 99.8 20 91 99.8 Weight Weight [ ] Input and Output Intake and Output Intake and Output 01/15/20 07:00 Intake Total 840 ml Output Total 1950 ml Balance -1110 ml Intake Oral 840 ml Output Urine Total 1950 ml Laboratory Labs Laboratory Tests Test 01/14/20 11:44 01/14/20 15:02 01/14/20 16:34 01/14/20 20:59 Glucose (Fingerstick) 113 mg/dL (70-99) 133 mg/dL (70-99) 208 mg/dL (70-99) Urine Random Creatinine 118.9 mg/dL (Not Establ.) Urine Random Total Protein 243.9 mg/dL (Not Establ.) Urine Protein/Creatinine Ratio 2051 mg/g (0-200) Test 01/15/20 02:50 01/15/20 06:58 Sodium Level 137 mmol/L (136-145) Potassium Level 3.2 mmol/L (3.5-5.1) Chloride Level 101 mmol/L (98-107) Carbon Dioxide Level 25 mmol/L (21-32) Anion Gap 11 (6-14) Blood Urea Nitrogen 40 mg/dL (8-26) Creatinine 3.8 mg/dL (0.7-1.3) Estimated GFR (Cockcroft-Gault) 19.1 Glucose Level 146 mg/dL (70-99) Calcium Level 7.7 mg/dL (8.5-10.1) Phosphorus Level 4.4 mg/dL (2.6-4.7) Albumin 1.9 g/dL (3.4-5.0) Glucose (Fingerstick) 146 mg/dL (70-99) Physical Exam HEENT: Neck Supple W Full Motion Chest: Symmetric LUNGS: Other (diminished ) Heart: S1S2, RRR Abdomen: Soft N/T Extremities: Other (1+ bilateral LE edema ) Neurology: alert, oriented, follow commands Assessment Assessment 1. Acute on chronic diastolic heart failure; Echo with preserved LV systolic function 2. ? WAYNE on CKD 3. Hypertension, uncontrolled 4. Diabetes, II 5. Morbid obesity 6. Hypokalemia 7. Low-grade fever Recommendations Replace K. Check Mg and replace as warranted Add hydralazine for BP control Convert metoprolol to coreg D/w renal, more SOA today. Will give does of IV Lasix No ACEi/ARB with CKD Monitor renal function closely Avoid nephrotoxins 2000cc FR. 2Gm Na restriction Supportive care Justicifation of Admission Dx: Justifications for Admission: Justification of Admission Dx: Yes Respiratory Failure: Severe Resp Distress Chronic Renal Failure: Electrolyte Abnormality MARCOS FENTON MD 01/15/20 1648: CARDIO Progress Notes Plan Plan Pt. seen and examined. Agree with above DISTRICT LEADER Note. Consider outpt ischemic testing. Continue diuresis for severe diastolic HF, Class 3 Supportive care. Thanks. DEANNA CURTIS APRN Jan 15, 2020 10:03 MARCOS FENTON MD Jan 15, 2020 16:48
[2020-01-15] MEDS ORDERED: POTASSIUM CHLORIDE 20 MEQ TABLET.ER. PO ONE (10:15)
[2020-01-15] MEDS ORDERED: FUROSEMIDE 40 MG/4 ML VIAL. IVP ONE (10:15)
[2020-01-15] MEDS ORDERED: DEXTROSE 50% 25 GM / 50ML DISP.SYRIN. IV PRN (11:30)
[2020-01-15] MEDS: INSULIN LISPRO 300 UNITS/3 ML VIAL. SQ SCH ×2 (12:18→16:55)
--- NOTE | 2020-01-15 12:33 | PDOC ---
[employer] PROGRESS NOTE Chief Complaint Chief Complaint Acute on chronic systolic and diastolic heart failure Severe edema Hyponatremia Severe renal failure Severe noncompliance, diabetes, hypertension, congestive heart failure, rotator cuff surgery, thumb surgery, leg surgery after an infection in his leg. History of Present Illness History of Present Illness 01/15/2020 Patient seen and examined We have now placed a Freitas to bedside drainage as he did have 318 cc of post void residual Creatinine is down to 3.8 from 3.9 His daughter is at the bedside and we discussed the case with her Discussed with RN Chart reviewed We are trying Lasix today cautiously His EF was surprisingly normal at 55% 01/14/2020 Patient seen and examined He is still edematous and short of breath Family present Discussed with RN We are going to check a post void residual and place a Freitas if necessary Chart reviewed Vitals/I&O Vitals/I&O: Vital Signs Date Time Temp Pulse Resp B/P (MAP) Pulse Ox O2 Delivery O2 Flow Rate FiO2 01/15/20 11:30 99.1 91 20 169/99 (122) 91 Nasal Cannula 2.0 99.1 I & O 01/14/20 01/14/20 01/15/20 15:00 23:00 07:00 Intake Total 240 ml 0 ml 600 ml Output Total 150 ml 1800 ml Balance 90 ml 0 ml -1200 ml Physical Exam General: Alert, mild distress Heart: Regular rate Lungs: Crackles Abdomen: Normal bowel sounds, Other (Distended) Extremities: Other Skin: No rashes, No breakdown Labs Labs: Laboratory Tests Test 01/14/20 15:02 01/14/20 16:34 01/14/20 20:59 01/15/20 02:50 Urine Random Creatinine 118.9 mg/dL (Not Establ.) Urine Random Total Protein 243.9 mg/dL (Not Establ.) Urine Protein/Creatinine Ratio 2051 mg/g (0-200) Glucose (Fingerstick) 133 mg/dL (70-99) 208 mg/dL (70-99) Sodium Level 137 mmol/L (136-145) Potassium Level 3.2 mmol/L (3.5-5.1) Chloride Level 101 mmol/L (98-107) Carbon Dioxide Level 25 mmol/L (21-32) Anion Gap 11 (6-14) Blood Urea Nitrogen 40 mg/dL (8-26) Creatinine 3.8 mg/dL (0.7-1.3) Estimated GFR (Cockcroft-Gault) 19.1 Glucose Level 146 mg/dL (70-99) Calcium Level 7.7 mg/dL (8.5-10.1) Phosphorus Level 4.4 mg/dL (2.6-4.7) Magnesium Level 1.9 mg/dL (1.8-2.4) Albumin 1.9 g/dL (3.4-5.0) Test 01/15/20 06:58 01/15/20 12:00 Glucose (Fingerstick) 146 mg/dL (70-99) 174 mg/dL (70-99) Assessment and Plan Assessmemt and Plan Problems Medical Problems: (1) Bilateral lower extremity edema Status: Acute (2) CHF (congestive heart failure) Status: Acute (3) CRF (chronic renal failure) Status: Acute Acute on chronic systolic and diastolic heart failure Severe edema Hyponatremia Severe renal failure Severe noncompliance, diabetes, hypertension, congestive heart failure, rotator cuff surgery, thumb surgery, leg surgery after an infection in his leg. Plan Daily doses of Lasix if he can tolerate it Freiats to bedside drainage for accurate I's and O's Appreciate subspecialist input Home meds DVT prophylaxis Full code Per cardiology please see below 1. At this present time, agree with a renal consultation and diuresis with Lasix as tolerated. 2. We will plan for a routine echocardiogram to assess his LV systolic function. 3. We could consider a right heart catheterization depending on renal input. 4. Continue aggressive treatment for his diabetes. He could use hydralazine and Imdur for blood pressure management, incentive MELITA inhibitor depending on what his chronic kidney disease status is. Comment Review of Relevant I have reviewed the following items reji (where applicable) has been applied. Medications: Current Medications Medications (Trade) Dose Ordered Sig/Julián Route PRN Reason Start Time Stop Time Status Last Admin Dose Admin Amlodipine Besylate (Norvasc) 10 mg DAILY PO 01/15/20 09:00 01/15/20 08:26 Furosemide (Lasix) 40 mg 1X ONCE IVP 01/15/20 10:15 01/15/20 10:16 DC 01/15/20 11:22 Potassium Chloride (Klor-Con) 40 meq 1X ONCE PO 01/15/20 10:15 01/15/20 10:16 DC 01/15/20 11:21 Hydralazine HCl (Apresoline) 50 mg BID PO 01/15/20 10:45 01/15/20 11:20 Insulin Human Lispro (HumaLOG) 0-7 UNITS TIDWMEALS SQ 01/15/20 12:00 01/15/20 12:18 Justicifation of Admission Dx: Justifications for Admission: Justification of Admission Dx: Yes Respiratory Failure: Severe Resp Distress Chronic Renal Failure: Electrolyte Abnormality RYLEE HERNANDEZ III DO Jan 15, 2020 12:33
[2020-01-15 13:53] LABS: CHOLESTEROL/HDL RATIO 4.7
[2020-01-15] MEDS: hydrALAZINE 20 MG/ML VIAL. IVP PRN (16:00)
--- NOTE | 2020-01-15 16:26 | NUR ---
SW following. Reviewed chart and coordinated care with RN and CM. SW awaiting further evaluation for possible new dialysis setup. SW to continue following.
[2020-01-15] MEDS: CARVEDILOL 12.5 MG TABLET. PO SCH (16:51)
[2020-01-16 03:00] VITALS: BP 174/93
[2020-01-16 03:39] LABS: CREATININE 4.1 mg/dL (0.7-1.3); GFR 17.5; PHOSPHORUS 3.6 mg/dL (2.6-4.7); POTASSIUM 3.1 mmol/L (3.5-5.1)
[2020-01-16] MEDS: INSULIN LISPRO 300 UNITS/3 ML VIAL. SQ SCH ×3 (07:18→17:54)
[2020-01-16 07:48] VITALS: BP 191/99
[2020-01-16] MEDS: amLODIPine BESYLATE 10 MG TABLET PO SCH (08:05)
[2020-01-16] MEDS: CARVEDILOL 12.5 MG TABLET. PO SCH ×2 (08:07→17:43)
[2020-01-16] MEDS: ISOSORBIDE MONONITRATE ER 30 MG TAB.ER.24H PO SCH (09:34)
[2020-01-16] MEDS: hydrALAZINE 20 MG/ML VIAL. IVP PRN (09:35)
--- NOTE | 2020-01-16 09:46 | PDOC ---
SUBJECTIVE ROS No complaints by Pt, OBJECTIVE Vital Signs Vital Signs Date Time Temp Pulse Resp B/P (MAP) Pulse Ox O2 Delivery O2 Flow Rate FiO2 01/16/20 09:35 93 191/99 01/16/20 08:00 Nasal Cannula 2.0 01/16/20 07:48 98.0 18 94 98.0 I & 0 Intake and Output 01/16/20 07:00 Intake Total 800 ml Output Total 2125 ml Balance -1325 ml Intake Oral 800 ml Output Urine Total 2125 ml PHYSICAL EXAM Physical Exam GENERAL: , no acute distress. HEAD AND NECK: Unremarkable, OM moist, O2 2 lts by NC CARDIAC: Regular rate and rhythm without murmurs, rubs or gallops. LUNGS: With decreased breath sounds at bases., no use of accessory muscles ABDOMEN: Obese, nontender. EXTREMITIES: Trace LE edema NEUROLOGIC: No focal deficits. MUSCULOSKELETAL: No trauma. SKIN: No rashes No Freitas, No CVA or SP tenderness Vital Signs Vital Signs Date Time Temp Pulse Resp B/P (MAP) Pulse Ox O2 Delivery O2 Flow Rate FiO2 01/14/20 11:25 99.0 82 20 162/97 (118) 94 Nasal Cannula 2.0 99.0 DIAGNOSIS/ASSESSMENT Assessment & Plan WAYNE- ATN/Cardiorenal/ r/o Post Obstructive Baseline unknown to me , UA unremarkable except for Overt proteinuria Pt Not aware of Dx of Kidney disease , No labs this am Recommend renal US,Pr/Cr ratio , Bladder scan, Freitas if retention , Avoid nephrotoxins , Supportive care, strict I/O , Daily standing weight , daily Labs HypoNatremia - Corrected for high Glucose Na Normal DM - Only on Metformin per Home list Acute on chronic diastolic heart failure in the setting of chronic kidney disease and hypertension. CxR suggestive of mild pulmonary edema and pleural effusions., Echo pending , clinically stable Diuretics cardiology managing, Morbid obesity COMMENT/RELEVANT DATA Meds Current Medications Medications (Trade) Dose Ordered Sig/Julián Start Time Stop Time Status Last Admin Dose Admin Acetaminophen (Tylenol) 650 mg PRN Q6HRS PRN 01/13/20 20:15 01/14/20 22:54 650 MG Amlodipine Besylate (Norvasc) 10 mg DAILY 01/15/20 09:00 01/16/20 08:05 10 MG Carvedilol (Coreg) 12.5 mg BIDWMEALS 01/15/20 17:00 01/16/20 08:07 12.5 MG Dextrose (Dextrose 50%-Water Syringe) 12.5 gm PRN Q15MIN PRN 01/15/20 11:30 Furosemide (Lasix) 40 mg 1X ONCE 01/15/20 10:15 01/15/20 10:16 DC 01/15/20 11:22 40 MG Hydralazine HCl (Apresoline Inj) 10 mg PRN Q4HRS PRN 01/15/20 15:30 01/16/20 09:35 10 MG Hydralazine HCl (Apresoline) 50 mg BID 01/15/20 10:45 01/16/20 08:05 50 MG Insulin Human Lispro (HumaLOG) 0-7 UNITS TIDWMEALS 01/15/20 12:00 01/15/20 16:55 3 UNITS Isosorbide Mononitrate (Imdur) 60 mg DAILY 01/16/20 10:00 01/16/20 09:34 60 MG Metoprolol Tartrate (Lopressor) 25 mg BID 01/13/20 21:00 01/15/20 13:22 DC 01/15/20 08:28 25 MG Potassium Chloride (Klor-Con) 40 meq 1X ONCE 01/15/20 10:15 01/15/20 10:16 DC 01/15/20 11:21 40 MEQ Lab Laboratory Tests Test 01/15/20 12:00 01/15/20 16:40 01/15/20 21:00 01/16/20 02:33 Glucose (Fingerstick) 174 mg/dL (70-99) 165 mg/dL (70-99) 191 mg/dL (70-99) Sodium Level 138 mmol/L (136-145) Potassium Level 3.1 mmol/L (3.5-5.1) Chloride Level 102 mmol/L (98-107) Carbon Dioxide Level 25 mmol/L (21-32) Anion Gap 11 (6-14) Blood Urea Nitrogen 40 mg/dL (8-26) Creatinine 4.1 mg/dL (0.7-1.3) Estimated GFR (Cockcroft-Gault) 17.5 Glucose Level 163 mg/dL (70-99) Calcium Level 8.0 mg/dL (8.5-10.1) Phosphorus Level 3.6 mg/dL (2.6-4.7) Albumin 2.0 g/dL (3.4-5.0) Test 01/16/20 07:04 Glucose (Fingerstick) 140 mg/dL (70-99) Results All relevant outside records, renal labs, imaging studies, telemetry/EKG's were reviewed. Justicifation of Admission Dx: Justifications for Admission: Justification of Admission Dx: Yes Respiratory Failure: Severe Resp Distress Chronic Renal Failure: Electrolyte Abnormality MARTINEZ GANT MD Jan 16, 2020 09:46
[2020-01-16 11:20] VITALS: BP 135/76
--- NOTE | 2020-01-16 11:43 | PDOC ---
KATE GOMEZ PHYSICIAN OPHTHALMOLOGIST 01/16/20 1143: CARDIO Progress Notes Date and Time Date of Service 01/16/2020 Time of Evaluation 0900 Subjective Subjective: No Chest Pain, No shortness of breath, No Palpitations Vitals Vitals Vital Signs Date Time Temp Pulse Resp B/P (MAP) Pulse Ox O2 Delivery O2 Flow Rate FiO2 01/16/20 09:35 93 191/99 01/16/20 08:00 Nasal Cannula 2.0 01/16/20 07:48 98.0 18 94 98.0 Weight Weight [ ] Input and Output Intake and Output Intake and Output 01/16/20 07:00 Intake Total 800 ml Output Total 2125 ml Balance -1325 ml Intake Oral 800 ml Output Urine Total 2125 ml Laboratory Labs Laboratory Tests Test 01/15/20 12:00 01/15/20 16:40 01/15/20 21:00 01/16/20 02:33 Glucose (Fingerstick) 174 mg/dL (70-99) 165 mg/dL (70-99) 191 mg/dL (70-99) Sodium Level 138 mmol/L (136-145) Potassium Level 3.1 mmol/L (3.5-5.1) Chloride Level 102 mmol/L (98-107) Carbon Dioxide Level 25 mmol/L (21-32) Anion Gap 11 (6-14) Blood Urea Nitrogen 40 mg/dL (8-26) Creatinine 4.1 mg/dL (0.7-1.3) Estimated GFR (Cockcroft-Gault) 17.5 Glucose Level 163 mg/dL (70-99) Calcium Level 8.0 mg/dL (8.5-10.1) Phosphorus Level 3.6 mg/dL (2.6-4.7) Albumin 2.0 g/dL (3.4-5.0) Test 01/16/20 07:04 01/16/20 11:23 Glucose (Fingerstick) 140 mg/dL (70-99) 215 mg/dL (70-99) Physical Exam HEENT: Neck Supple W Full Motion Chest: Symmetric LUNGS: Other (diminished ) Heart: S1S2, RRR (SR with SB episode in the 40s) Abdomen: Soft N/T Extremities: Other (trace to 1+ bilateral LE edema ) Neurology: alert, oriented, follow commands Assessment Assessment 1. Acute on chronic diastolic heart failure: EF nml. No SOA but tachypneic 2. Severe WAYNE on CKD: unknown baseline and no improvement. nephrology following 3. HTN urgency 4. DM2 5. Morbid obesity and suspecting underlying NOE 6. Hypokalemia 7. Asymptomatic SB: lowest in the 40s, no pauses 8. Protein malnutrition Recommendations 1. No significant peripheral edema but appears to be overloaded still. Holding lasix with Cr up to 4.1. Consider for RHC to further delineate intracardiac gradients for further treatment optimization. Ultimately if renal function does not improved then may consider for HD. 2. Replace K. Continue coreg, no further increase due to naomy episodes. Will add imdur. Titrate up hydralazine per BP trend. 3. PCXR Justicifation of Admission Dx: Justifications for Admission: Justification of Admission Dx: Yes Respiratory Failure: Severe Resp Distress Chronic Renal Failure: Electrolyte Abnormality MARCOS FENTON MD 01/16/20 1157: CARDIO Progress Notes Plan Plan Pt. seen and examined. 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 Will plan for RHC tomorrow as the patient still has dyspnea and renal failure. Thanks KATE GOMEZ APRN Jan 16, 2020 11:43 MARCOS FENTON MD Jan 16, 2020 11:57
[2020-01-16] MEDS ORDERED: POTASSIUM CHLORIDE 20 MEQ TABLET.ER. PO ONE (11:45)
--- NOTE | 2020-01-16 12:03 | PDOC ---
[facility] PROGRESS NOTE Chief Complaint Chief Complaint Acute on chronic systolic and diastolic heart failure Severe edema Hyponatremia Severe renal failure Severe noncompliance, diabetes, hypertension, congestive heart failure, rotator cuff surgery, thumb surgery, leg surgery after an infection in his leg. History of Present Illness History of Present Illness 01/16/2020 Patient seen and examined Pulmonary harris he seems to be breathing better but his creatinine is going up to 4.1 I calculated an estimated GFR at around 28 His friend is present Chart reviewed Discussed with RN 01/15/2020 Patient seen and examined We have now placed a Freitas to bedside drainage as he did have 318 cc of post void residual Creatinine is down to 3.8 from 3.9 His daughter is at the bedside and we discussed the case with her Discussed with RN Chart reviewed We are trying Lasix today cautiously His EF was surprisingly normal at 55% 01/14/2020 Patient seen and examined He is still edematous and short of breath Family present Discussed with RN We are going to check a post void residual and place a Freitas if necessary Chart reviewed Vitals/I&O Vitals/I&O: Vital Signs Date Time Temp Pulse Resp B/P (MAP) Pulse Ox O2 Delivery O2 Flow Rate FiO2 01/16/20 11:20 98.6 91 20 135/76 (95) 91 Nasal Cannula 2.0 98.6 I & O 01/15/20 01/15/20 01/16/20 15:00 23:00 07:00 Intake Total 500 ml 300 ml Output Total 1125 ml 1000 ml Balance 500 ml -825 ml -1000 ml Physical Exam General: Alert, mild distress Heart: Regular rate Lungs: Crackles Abdomen: Normal bowel sounds, Other (Distended) Extremities: Other Skin: No rashes, No breakdown Labs Labs: Laboratory Tests Test 01/15/20 16:40 01/15/20 21:00 01/16/20 02:33 01/16/20 07:04 Glucose (Fingerstick) 165 mg/dL (70-99) 191 mg/dL (70-99) 140 mg/dL (70-99) Sodium Level 138 mmol/L (136-145) Potassium Level 3.1 mmol/L (3.5-5.1) Chloride Level 102 mmol/L (98-107) Carbon Dioxide Level 25 mmol/L (21-32) Anion Gap 11 (6-14) Blood Urea Nitrogen 40 mg/dL (8-26) Creatinine 4.1 mg/dL (0.7-1.3) Estimated GFR (Cockcroft-Gault) 17.5 Glucose Level 163 mg/dL (70-99) Calcium Level 8.0 mg/dL (8.5-10.1) Phosphorus Level 3.6 mg/dL (2.6-4.7) Albumin 2.0 g/dL (3.4-5.0) Test 01/16/20 11:23 Glucose (Fingerstick) 215 mg/dL (70-99) Assessment and Plan Assessmemt and Plan Problems Medical Problems: (1) Bilateral lower extremity edema Status: Acute (2) CHF (congestive heart failure) Status: Acute (3) CRF (chronic renal failure) Status: Acute Acute on chronic systolic and diastolic heart failure Severe edema Hyponatremia Severe renal failure Severe noncompliance, diabetes, hypertension, congestive heart failure, rotator cuff surgery, thumb surgery, leg surgery after an infection in his leg. Plan Daily doses of Lasix if he can tolerate it Trend creatinine Freitas to bedside drainage for accurate I's and O's Appreciate subspecialist input Home meds DVT prophylaxis Full code Long-term prognosis guarded Comment Review of Relevant I have reviewed the following items reji (where applicable) has been applied. Medications: Current Medications Medications (Trade) Dose Ordered Sig/Julián Route PRN Reason Start Time Stop Time Status Last Admin Dose Admin Carvedilol (Coreg) 12.5 mg BIDWMEALS PO 01/15/20 17:00 01/16/20 08:07 Hydralazine HCl (Apresoline Inj) 10 mg PRN Q4HRS PRN IVP ELEVATED BP, SEE COMMENTS 01/15/20 15:30 01/16/20 09:35 Isosorbide Mononitrate (Imdur) 60 mg DAILY PO 01/16/20 10:00 01/16/20 09:34 Justicifation of Admission Dx: Justifications for Admission: Justification of Admission Dx: Yes Respiratory Failure: Severe Resp Distress Chronic Renal Failure: Electrolyte Abnormality RYLEE HERNANDEZ III DO Jan 16, 2020 12:03
--- NOTE | 2020-01-16 12:38 | PDOC ---
SUBJECTIVE ROS No complaints by Pt, breathing better per Pt and RN OBJECTIVE Vital Signs Vital Signs Date Time Temp Pulse Resp B/P (MAP) Pulse Ox O2 Delivery O2 Flow Rate FiO2 01/16/20 11:20 98.6 91 20 135/76 (95) 91 Nasal Cannula 2.0 98.6 I & 0 Intake and Output 01/16/20 07:00 Intake Total 800 ml Output Total 2125 ml Balance -1325 ml Intake Oral 800 ml Output Urine Total 2125 ml PHYSICAL EXAM Physical Exam GENERAL: , no acute distress. HEAD AND NECK: Unremarkable, OM moist, O2 2 lts by NC CARDIAC: Regular rate and rhythm without murmurs, rubs or gallops. LUNGS: With decreased breath sounds at bases., no use of accessory muscles ABDOMEN: Obese, nontender. EXTREMITIES: Trace LE edema NEUROLOGIC: No focal deficits. MUSCULOSKELETAL: No trauma. SKIN: No rashes No Freitas, No CVA or SP tenderness DIAGNOSIS/ASSESSMENT Assessment & Plan WAYNE- ATN/Cardiorenal/ r/o Post Obstructive Baseline unknown to me , UA unremarkable except for Overt proteinuria Unable to obtain labs from Outpatient no hydronephrosis on Renal US, Avoid nephrotoxins , Supportive care, strict I/O , Daily standing weight , daily Labs May have to go on HD if no improvement in renal function , Discussed with Pt and daughters HypoNatremia - Corrected for high Glucose Na Normal DM - Only on Metformin per Home list Acute on chronic diastolic heart failure in the setting of chronic kidney disease and hypertension. CxR suggestive of mild pulmonary edema and pleural effusions., Echo pending , clinically stable Recd Lasix x1 , improvement in symptoms, Good UOP, Monitor Morbid obesity COMMENT/RELEVANT DATA Meds Current Medications Medications (Trade) Dose Ordered Sig/Julián Start Time Stop Time Status Last Admin Dose Admin Acetaminophen (Tylenol) 650 mg PRN Q6HRS PRN 01/13/20 20:15 01/14/20 22:54 650 MG Amlodipine Besylate (Norvasc) 10 mg DAILY 01/15/20 09:00 01/16/20 08:05 10 MG Atorvastatin Calcium (Lipitor) 10 mg QHS 01/16/20 21:00 Carvedilol (Coreg) 12.5 mg BIDWMEALS 01/15/20 17:00 01/16/20 08:07 12.5 MG Dextrose (Dextrose 50%-Water Syringe) 12.5 gm PRN Q15MIN PRN 01/15/20 11:30 Furosemide (Lasix) 40 mg 1X ONCE 01/15/20 10:15 01/15/20 10:16 DC 01/15/20 11:22 40 MG Hydralazine HCl (Apresoline Inj) 10 mg PRN Q4HRS PRN 01/15/20 15:30 01/16/20 09:35 10 MG Hydralazine HCl (Apresoline) 50 mg BID 01/15/20 10:45 01/16/20 08:05 50 MG Insulin Human Lispro (HumaLOG) 0-7 UNITS TIDWMEALS 01/15/20 12:00 01/15/20 16:55 3 UNITS Isosorbide Mononitrate (Imdur) 60 mg DAILY 01/16/20 10:00 01/16/20 09:34 60 MG Metoprolol Tartrate (Lopressor) 25 mg BID 01/13/20 21:00 01/15/20 13:22 DC 01/15/20 08:28 25 MG Potassium Chloride (Klor-Con) 40 meq 1X ONCE 01/16/20 11:45 01/16/20 11:46 DC Lab Laboratory Tests Test 01/15/20 16:40 01/15/20 21:00 01/16/20 02:33 01/16/20 07:04 Glucose (Fingerstick) 165 mg/dL (70-99) 191 mg/dL (70-99) 140 mg/dL (70-99) Sodium Level 138 mmol/L (136-145) Potassium Level 3.1 mmol/L (3.5-5.1) Chloride Level 102 mmol/L (98-107) Carbon Dioxide Level 25 mmol/L (21-32) Anion Gap 11 (6-14) Blood Urea Nitrogen 40 mg/dL (8-26) Creatinine 4.1 mg/dL (0.7-1.3) Estimated GFR (Cockcroft-Gault) 17.5 Glucose Level 163 mg/dL (70-99) Calcium Level 8.0 mg/dL (8.5-10.1) Phosphorus Level 3.6 mg/dL (2.6-4.7) Albumin 2.0 g/dL (3.4-5.0) Test 01/16/20 11:23 Glucose (Fingerstick) 215 mg/dL (70-99) Results All relevant outside records, renal labs, imaging studies, telemetry/EKG's were reviewed. Justicifation of Admission Dx: Justifications for Admission: Justification of Admission Dx: Yes Respiratory Failure: Severe Resp Distress Chronic Renal Failure: Electrolyte Abnormality MARTINEZ GANT MD Jan 16, 2020 12:38
[2020-01-16 13:15] LABS: BASE EXCESS ABG -2 mmol/L (-3-3); HCO3 ABG 20 mmol/L (21-28); PCO2 ABG 26 mmHg (35-46); PO2 ABG 53 mmHg (65-108); SAT O2 ABG 88 % (92-99)
--- NOTE | 2020-01-16 13:22 | RAD ---
EXAM: CHEST AP ONLY INDICATION: Reason: chf,654 / Spl. Instructions: / History: . TECHNIQUE: Single view COMPARISON: 01/13/2020 FINDINGS: Stable borderline cardiomegaly. The great vessels appear unremarkable. There is no hilar or mediastinal mass. Lungs show a greater prominence of the pulmonary interstitial markings. No focal consolidation. Trace bilateral pleural effusions are suggested. No pneumothorax. There are no significant osseous abnormalities. IMPRESSION: Borderline cardiomegaly with more prominent pulmonary interstitial markings. Correlate for any evidence of worsening CHF. Electronically signed by: Tiffanie Maravilla MD (01/16/2020 1:19 PM) [id number]
[2020-01-16 15:23] VITALS: BP 125/80
[2020-01-16] MEDS ORDERED: levOFLOXacin PER PHARMACY. MC PRN (15:45)
--- NOTE | 2020-01-16 16:03 | CONS ---
DATE OF CONSULTATION: PULMONARY CONSULTATION ATTENDING PHYSICIAN: Lou Miller DO REASON FOR CONSULTATION: Dyspnea, respiratory failure. HISTORY OF PRESENT ILLNESS: The patient is a 69-year-old morbidly obese male with a BMI of 37. He presented to the hospital with complaint of increased leg edema and shortness of breath. He has a mild cough. Denies any chest pain. No headache. No nausea, vomiting. No diarrhea. He was noted to be in acute on chronic renal failure. He underwent chest x-ray, which showed cardiomegaly and evidence of mild CHF. Cardiology has requested the consultation to optimize his pulmonary status. He also has history of sleep apnea, for which he is on CPAP. Compliance is questionable. PAST MEDICAL HISTORY: History of noncompliance which is severe, history of diabetes, hypertension, congestive heart failure, rotator cuff surgery, thumb surgery, leg surgery after an infection in his leg. PAST SURGICAL HISTORY: As above. ALLERGIES: PENICILLIN. FAMILY HISTORY: Diabetes. SOCIAL HISTORY: Denies any significant tobacco or alcohol. MEDICATIONS: Reviewed as listed in the MRAD. REVIEW OF SYSTEMS: Twelve-point system obtained. Pertinent positives discussed in my history of present illness, otherwise noncontributory. All systems that were negative were reviewed as well. PHYSICAL EXAMINATION: VITAL SIGNS: Reviewed. T-max of 100.1. Pulse ox is 92% on 5 liters. HEENT: Sclerae nonicteric. NECK: Supple. LUNGS: With diminished breath sounds. CARDIOVASCULAR: With a regular rate. ABDOMEN: Soft, obese. EXTREMITIES: With 1+ pitting edema. LABORATORY DATA: Reviewed. White cell count 7.2, hemoglobin 12.1, and platelets are 238. BUN 40, creatinine 4.1. ABGs with a pH of 7.51, pCO2 of 26, and a pO2 of 53 on 2.5 liters. IMPRESSION: 1. Acute hypoxic respiratory failure secondary to multifactorial etiologies and likely contributed by acute diastolic heart failure in addition to his morbid obesity. Cannot exclude the possibility of interstitial pneumonia as he does have a cough and a fever of 100 degrees Fahrenheit. 2. No significant tobacco history. 3. Underlying obstructive sleep apnea. 4. Acute kidney injury on chronic kidney disease. RECOMMENDATIONS: 1. Discussed with the patient's family. At this time, I would like to do a noncontrast CT chest to better assess for interstitial edema or any infiltrates or effusion. 2. If indeed the patient has diastolic heart failure, then he would benefit from dialysis. Diuresis does carry increased risk of worsening renal function. 3. I will recommend to continue home CPAP. 4. Add empiric antibiotic. 5. May not be stable to lay flat for right heart cath unless CHF is improved. 6. We will follow along with you and make further recommendations after review of the CT chest. d/w family KSUUM DE JESUS MD DR: LIT/aron JOB#: [id number] / [id number] MICHEL
--- NOTE | 2020-01-16 16:30 | NUR ---
SW following. Reviewed chart and coordinated care with RN and CM. SW awaiting further evaluation for possible new dialysis setup. SW to continue following.
[2020-01-16] MEDS: ACETAMINOPHEN 325 MG TABLET. PO PRN (18:13)
[2020-01-16 19:00] VITALS: BP 123/69
[2020-01-16] MEDS ORDERED: VANCOMYCIN PER PHARMACY MC PRN (19:15)
[2020-01-16] MEDS: ATORVASTATIN CALCIUM 10 MG TABLET. PO SCH (22:40)
[2020-01-16 23:00] VITALS: BP 126/79
[2020-01-17 03:00] VITALS: BP 160/88
[2020-01-17 05:15] LABS: ALBUMIN 1.7 g/dL (3.4-5.0); CALCIUM 7.8 mg/dL (8.5-10.1); CREATININE 4.6 mg/dL (0.7-1.3); GFR 15.3; PHOSPHORUS 4.2 mg/dL (2.6-4.7); POTASSIUM 3.7 mmol/L (3.5-5.1)
[2020-01-17 07:00] VITALS: BP 137/80
[2020-01-17] MEDS: INSULIN LISPRO 300 UNITS/3 ML VIAL. SQ SCH ×3 (08:00→16:37)
[2020-01-17 08:12] LABS: BASO % 1 % (0-3); EOS # 0.1 x10^3/uL (0.0-0.7); EOS % 1 % (0-3); HEMATOCRIT 32.9 % (39.0-53.0); HEMOGLOBIN 10.9 g/dL (13.0-17.5); LYMPH # 0.7 x10^3/uL (1.0-4.8); LYMPH % 12 % (24-48); MEAN CORPUSCULAR HEMOGLOBIN 29 pg (25-35); MEAN CORPUSCULAR HGB CONC 33 g/dL (31-37); MEAN CORPUSCULAR VOLUME 86 fL (79-100); MONO # 0.8 x10^3/uL (0.0-1.1); MONO % 14 % (0-9); NEUT # 4.3 x10^3/uL (1.8-7.7); NEUT % 72 % (31-73); PLATELET COUNT 219 x10^3/uL (140-400); RED BLOOD COUNT 3.81 x10^6/uL (4.30-5.70); RED CELL DISTRIBUTION WIDTH 14.7 % (11.5-14.5); WHITE BLOOD COUNT 5.9 x10^3/uL (4.0-11.0)
[2020-01-17] MEDS: amLODIPine BESYLATE 10 MG TABLET PO SCH (08:29)
[2020-01-17] MEDS: ISOSORBIDE MONONITRATE ER 30 MG TAB.ER.24H PO SCH (08:30)
[2020-01-17] MEDS: CARVEDILOL 12.5 MG TABLET. PO SCH ×2 (08:30→16:36)
--- NOTE | 2020-01-17 10:02 | PDOC ---
PULMONARY PROGRESS NOTES Subjective remains on 3 litres fever yesterday of 102 reported to me by RN Vitals Vital Signs Date Time Temp Pulse Resp B/P (MAP) Pulse Ox O2 Delivery O2 Flow Rate FiO2 01/17/20 08:33 74 137/80 01/17/20 08:00 Nasal Cannula 5.0 01/17/20 03:00 98.7 17 98 98.7 General: Alert, No acute distress Lungs: Other (decrease bs) Cardiovascular: S1 Abdomen: Other (obese) Neuro Exam: Alert Extremities: Other (trace edema) Labs Laboratory Tests Test 01/15/20 12:00 01/15/20 16:40 01/15/20 21:00 01/16/20 02:33 Glucose (Fingerstick) 174 mg/dL (70-99) 165 mg/dL (70-99) 191 mg/dL (70-99) Sodium Level 138 mmol/L (136-145) Potassium Level 3.1 mmol/L (3.5-5.1) Chloride Level 102 mmol/L (98-107) Carbon Dioxide Level 25 mmol/L (21-32) Anion Gap 11 (6-14) Blood Urea Nitrogen 40 mg/dL (8-26) Creatinine 4.1 mg/dL (0.7-1.3) Estimated GFR (Cockcroft-Gault) 17.5 Glucose Level 163 mg/dL (70-99) Calcium Level 8.0 mg/dL (8.5-10.1) Phosphorus Level 3.6 mg/dL (2.6-4.7) Albumin 2.0 g/dL (3.4-5.0) Test 01/16/20 07:04 01/16/20 11:23 01/16/20 13:05 01/16/20 16:23 Glucose (Fingerstick) 140 mg/dL (70-99) 215 mg/dL (70-99) 194 mg/dL (70-99) O2 Saturation 88 % (92-99) Arterial Blood pH 7.51 (7.35-7.45) Arterial Blood pCO2 at Patient Temp 26 mmHg (35-46) Arterial Blood pO2 at Patient Temp 53 mmHg (65-108) Arterial Blood HCO3 20 mmol/L (21-28) Arterial Blood Base Excess -2 mmol/L (-3-3) FiO2 2.5 lpm nc Test 01/17/20 04:10 01/17/20 08:26 White Blood Count 5.9 x10^3/uL (4.0-11.0) Red Blood Count 3.81 x10^6/uL (4.30-5.70) Hemoglobin 10.9 g/dL (13.0-17.5) Hematocrit 32.9 % (39.0-53.0) Mean Corpuscular Volume 86 fL (79-100) Mean Corpuscular Hemoglobin 29 pg (25-35) Mean Corpuscular Hemoglobin Concent 33 g/dL (31-37) Red Cell Distribution Width 14.7 % (11.5-14.5) Platelet Count 219 x10^3/uL (140-400) Neutrophils (%) (Auto) 72 % (31-73) Lymphocytes (%) (Auto) 12 % (24-48) Monocytes (%) (Auto) 14 % (0-9) Eosinophils (%) (Auto) 1 % (0-3) Basophils (%) (Auto) 1 % (0-3) Neutrophils # (Auto) 4.3 x10^3/uL (1.8-7.7) Lymphocytes # (Auto) 0.7 x10^3/uL (1.0-4.8) Monocytes # (Auto) 0.8 x10^3/uL (0.0-1.1) Eosinophils # (Auto) 0.1 x10^3/uL (0.0-0.7) Basophils # (Auto) 0.0 x10^3/uL (0.0-0.2) Sodium Level 137 mmol/L (136-145) Potassium Level 3.7 mmol/L (3.5-5.1) Chloride Level 101 mmol/L (98-107) Carbon Dioxide Level 24 mmol/L (21-32) Anion Gap 12 (6-14) Blood Urea Nitrogen 50 mg/dL (8-26) Creatinine 4.6 mg/dL (0.7-1.3) Estimated GFR (Cockcroft-Gault) 15.3 Glucose Level 152 mg/dL (70-99) Calcium Level 7.8 mg/dL (8.5-10.1) Phosphorus Level 4.2 mg/dL (2.6-4.7) Albumin 1.7 g/dL (3.4-5.0) Glucose (Fingerstick) 127 mg/dL (70-99) Laboratory Tests Test 01/16/20 11:23 01/16/20 13:05 01/16/20 16:23 01/17/20 04:10 Glucose (Fingerstick) 215 mg/dL (70-99) 194 mg/dL (70-99) O2 Saturation 88 % (92-99) Arterial Blood pH 7.51 (7.35-7.45) Arterial Blood pCO2 at Patient Temp 26 mmHg (35-46) Arterial Blood pO2 at Patient Temp 53 mmHg (65-108) Arterial Blood HCO3 20 mmol/L (21-28) Arterial Blood Base Excess -2 mmol/L (-3-3) FiO2 2.5 lpm nc White Blood Count 5.9 x10^3/uL (4.0-11.0) Red Blood Count 3.81 x10^6/uL (4.30-5.70) Hemoglobin 10.9 g/dL (13.0-17.5) Hematocrit 32.9 % (39.0-53.0) Mean Corpuscular Volume 86 fL (79-100) Mean Corpuscular Hemoglobin 29 pg (25-35) Mean Corpuscular Hemoglobin Concent 33 g/dL (31-37) Red Cell Distribution Width 14.7 % (11.5-14.5) Platelet Count 219 x10^3/uL (140-400) Neutrophils (%) (Auto) 72 % (31-73) Lymphocytes (%) (Auto) 12 % (24-48) Monocytes (%) (Auto) 14 % (0-9) Eosinophils (%) (Auto) 1 % (0-3) Basophils (%) (Auto) 1 % (0-3) Neutrophils # (Auto) 4.3 x10^3/uL (1.8-7.7) Lymphocytes # (Auto) 0.7 x10^3/uL (1.0-4.8) Monocytes # (Auto) 0.8 x10^3/uL (0.0-1.1) Eosinophils # (Auto) 0.1 x10^3/uL (0.0-0.7) Basophils # (Auto) 0.0 x10^3/uL (0.0-0.2) Sodium Level 137 mmol/L (136-145) Potassium Level 3.7 mmol/L (3.5-5.1) Chloride Level 101 mmol/L (98-107) Carbon Dioxide Level 24 mmol/L (21-32) Anion Gap 12 (6-14) Blood Urea Nitrogen 50 mg/dL (8-26) Creatinine 4.6 mg/dL (0.7-1.3) Estimated GFR (Cockcroft-Gault) 15.3 Glucose Level 152 mg/dL (70-99) Calcium Level 7.8 mg/dL (8.5-10.1) Phosphorus Level 4.2 mg/dL (2.6-4.7) Albumin 1.7 g/dL (3.4-5.0) Test 01/17/20 08:26 Glucose (Fingerstick) 127 mg/dL (70-99) Medications Active Scripts Medications Dose Route/Sig Max Daily Dose Days Date Category Amlodipine Besylate 10 Mg Tablet 10 Mg PO DAILY 01/13/20 Reported Metformin Hcl 1,000 Mg Tablet 1,000 Mg PO BIDWMEALS 01/13/20 Reported Impression . 1. Acute hypoxic respiratory failure secondary to multifactorial etiologies and likely contributed by acute diastolic heart failure in addition to his morbid obesity. Cannot exclude the possibility of interstitial pneumonia as he does have a cough and a fever 2. No significant tobacco history. 3. Underlying obstructive sleep apnea. 4. Acute kidney injury on chronic kidney disease. Plan . 1. At this time, I would like to do a noncontrast CT chest to better assess for interstitial edema or any infiltrates or effusion. 2. he would benefit from dialysis. Diuresis does carry increased risk of worsening renal function. 3. I will recommend to continue home CPAP. 4. empiric antibiotic. ID rec 5. May not be stable to lay flat for right heart cath unless CHF is improved. 6. We will follow along with you and make further recommendations after review of the CT chest. 7. r/o COVID 19 d/w KUSUM Gonzalez MD Jan 17, 2020 10:02
--- NOTE | 2020-01-17 10:10 | PDOC ---
[facility] PROGRESS NOTE Chief Complaint Chief Complaint Acute on chronic systolic and diastolic heart failure Severe edema Hyponatremia Severe renal failure Severe noncompliance, diabetes, hypertension, congestive heart failure, rotator cuff surgery, thumb surgery, leg surgery after an infection in his leg. History of Present Illness History of Present Illness 01/17/2020 Patient seen and examined We had moving to the COVID floor because he had a fever yesterday we are ruling out COVID-19 Chart reviewed Discussed with RN 01/16/2020 Patient seen and examined Pulmonary harris he seems to be breathing better but his creatinine is going up to 4.1 I calculated an estimated GFR at around 28 His friend is present Chart reviewed Discussed with RN 01/15/2020 Patient seen and examined We have now placed a Freitas to bedside drainage as he did have 318 cc of post void residual Creatinine is down to 3.8 from 3.9 His daughter is at the bedside and we discussed the case with her Discussed with RN Chart reviewed We are trying Lasix today cautiously His EF was surprisingly normal at 55% 01/14/2020 Patient seen and examined He is still edematous and short of breath Family present Discussed with RN We are going to check a post void residual and place a Freitas if necessary Chart reviewed Vitals/I&O Vitals/I&O: Vital Signs Date Time Temp Pulse Resp B/P (MAP) Pulse Ox O2 Delivery O2 Flow Rate FiO2 01/17/20 08:33 74 137/80 01/17/20 08:00 Nasal Cannula 5.0 01/17/20 03:00 98.7 17 98 98.7 I & O 01/16/20 01/16/20 01/17/20 15:00 23:00 07:00 Intake Total 800 ml 800 ml 250 ml Output Total 900 ml 800 ml Balance -100 ml 0 ml 250 ml Physical Exam General: Alert, mild distress Heart: Regular rate Lungs: Other (decrease bs) Abdomen: Normal bowel sounds, Other (Distended) Extremities: Other Skin: No rashes, No breakdown Labs Labs: Laboratory Tests Test 01/16/20 11:23 01/16/20 13:05 01/16/20 16:23 01/17/20 04:10 Glucose (Fingerstick) 215 mg/dL (70-99) 194 mg/dL (70-99) O2 Saturation 88 % (92-99) Arterial Blood pH 7.51 (7.35-7.45) Arterial Blood pCO2 at Patient Temp 26 mmHg (35-46) Arterial Blood pO2 at Patient Temp 53 mmHg (65-108) Arterial Blood HCO3 20 mmol/L (21-28) Arterial Blood Base Excess -2 mmol/L (-3-3) FiO2 2.5 lpm nc White Blood Count 5.9 x10^3/uL (4.0-11.0) Red Blood Count 3.81 x10^6/uL (4.30-5.70) Hemoglobin 10.9 g/dL (13.0-17.5) Hematocrit 32.9 % (39.0-53.0) Mean Corpuscular Volume 86 fL (79-100) Mean Corpuscular Hemoglobin 29 pg (25-35) Mean Corpuscular Hemoglobin Concent 33 g/dL (31-37) Red Cell Distribution Width 14.7 % (11.5-14.5) Platelet Count 219 x10^3/uL (140-400) Neutrophils (%) (Auto) 72 % (31-73) Lymphocytes (%) (Auto) 12 % (24-48) Monocytes (%) (Auto) 14 % (0-9) Eosinophils (%) (Auto) 1 % (0-3) Basophils (%) (Auto) 1 % (0-3) Neutrophils # (Auto) 4.3 x10^3/uL (1.8-7.7) Lymphocytes # (Auto) 0.7 x10^3/uL (1.0-4.8) Monocytes # (Auto) 0.8 x10^3/uL (0.0-1.1) Eosinophils # (Auto) 0.1 x10^3/uL (0.0-0.7) Basophils # (Auto) 0.0 x10^3/uL (0.0-0.2) Sodium Level 137 mmol/L (136-145) Potassium Level 3.7 mmol/L (3.5-5.1) Chloride Level 101 mmol/L (98-107) Carbon Dioxide Level 24 mmol/L (21-32) Anion Gap 12 (6-14) Blood Urea Nitrogen 50 mg/dL (8-26) Creatinine 4.6 mg/dL (0.7-1.3) Estimated GFR (Cockcroft-Gault) 15.3 Glucose Level 152 mg/dL (70-99) Calcium Level 7.8 mg/dL (8.5-10.1) Phosphorus Level 4.2 mg/dL (2.6-4.7) Albumin 1.7 g/dL (3.4-5.0) Test 01/17/20 08:26 Glucose (Fingerstick) 127 mg/dL (70-99) Assessment and Plan Assessmemt and Plan Problems Medical Problems: (1) Bilateral lower extremity edema Status: Acute (2) CHF (congestive heart failure) Status: Acute (3) CRF (chronic renal failure) Status: Acute Acute on chronic systolic and diastolic heart failure Severe edema Hyponatremia Severe renal failure Severe noncompliance, diabetes, hypertension, congestive heart failure, rotator cuff surgery, thumb surgery, leg surgery after an infection in his leg. Plan Daily doses of Lasix if he can tolerate it Trend creatinine Freitas to bedside drainage for accurate I's and O's Appreciate subspecialist input Home meds DVT prophylaxis Full code Long-term prognosis guarded: Per pulmonary please see below: 1. Acute hypoxic respiratory failure secondary to multifactorial etiologies and likely contributed by acute diastolic heart failure in addition to his morbid obesity. Cannot exclude the possibility of interstitial pneumonia as he does have a cough and a fever 2. No significant tobacco history. 3. Underlying obstructive sleep apnea. 4. Acute kidney injury on chronic kidney disease. 1. At this time, I would like to do a noncontrast CT chest to better assess for interstitial edema or any infiltrates or effusion. 2. he would benefit from dialysis. Diuresis does carry increased risk of worsening renal function. 3. I will recommend to continue home CPAP. 4. empiric antibiotic. ID rec 5. May not be stable to lay flat for right heart cath unless CHF is improved. 6. We will follow along with you and make further recommendations after review of the CT chest. 7. r/o COVID 19 Comment Review of Relevant I have reviewed the following items reji (where applicable) has been applied. Medications: Current Medications Medications (Trade) Dose Ordered Sig/Julián Route PRN Reason Start Time Stop Time Status Last Admin Dose Admin Potassium Chloride (Klor-Con) 40 meq 1X ONCE PO 01/16/20 11:45 01/16/20 11:46 DC 01/16/20 13:18 Atorvastatin Calcium (Lipitor) 10 mg QHS PO 01/16/20 21:00 01/16/20 22:40 Levofloxacin/ Dextrose 100 ml @ 100 mls/hr 1X ONCE IV 01/16/20 17:00 01/16/20 17:59 DC 01/16/20 17:43 Linezolid/Dextrose 300 ml @ 300 mls/hr Q12HR IV 01/16/20 20:00 01/17/20 08:31 Justicifation of Admission Dx: Justifications for Admission: Justification of Admission Dx: Yes Respiratory Failure: Severe Resp Distress Chronic Renal Failure: Electrolyte Abnormality RYLEE HERNANDEZ III DO Jan 17, 2020 10:10
--- NOTE | 2020-01-17 10:50 | PDOC ---
Infectious Disease Note Vital Sign Vital Signs Vital Signs Date Time Temp Pulse Resp B/P (MAP) Pulse Ox O2 Delivery O2 Flow Rate FiO2 01/17/20 08:33 74 137/80 01/17/20 08:00 Nasal Cannula 5.0 01/17/20 07:00 97.6 20 99 97.6 Labs Lab Laboratory Tests Test 01/16/20 11:23 01/16/20 13:05 01/16/20 16:23 01/17/20 04:10 Glucose (Fingerstick) 215 mg/dL (70-99) 194 mg/dL (70-99) O2 Saturation 88 % (92-99) Arterial Blood pH 7.51 (7.35-7.45) Arterial Blood pCO2 at Patient Temp 26 mmHg (35-46) Arterial Blood pO2 at Patient Temp 53 mmHg (65-108) Arterial Blood HCO3 20 mmol/L (21-28) Arterial Blood Base Excess -2 mmol/L (-3-3) FiO2 2.5 lpm nc White Blood Count 5.9 x10^3/uL (4.0-11.0) Red Blood Count 3.81 x10^6/uL (4.30-5.70) Hemoglobin 10.9 g/dL (13.0-17.5) Hematocrit 32.9 % (39.0-53.0) Mean Corpuscular Volume 86 fL (79-100) Mean Corpuscular Hemoglobin 29 pg (25-35) Mean Corpuscular Hemoglobin Concent 33 g/dL (31-37) Red Cell Distribution Width 14.7 % (11.5-14.5) Platelet Count 219 x10^3/uL (140-400) Neutrophils (%) (Auto) 72 % (31-73) Lymphocytes (%) (Auto) 12 % (24-48) Monocytes (%) (Auto) 14 % (0-9) Eosinophils (%) (Auto) 1 % (0-3) Basophils (%) (Auto) 1 % (0-3) Neutrophils # (Auto) 4.3 x10^3/uL (1.8-7.7) Lymphocytes # (Auto) 0.7 x10^3/uL (1.0-4.8) Monocytes # (Auto) 0.8 x10^3/uL (0.0-1.1) Eosinophils # (Auto) 0.1 x10^3/uL (0.0-0.7) Basophils # (Auto) 0.0 x10^3/uL (0.0-0.2) Sodium Level 137 mmol/L (136-145) Potassium Level 3.7 mmol/L (3.5-5.1) Chloride Level 101 mmol/L (98-107) Carbon Dioxide Level 24 mmol/L (21-32) Anion Gap 12 (6-14) Blood Urea Nitrogen 50 mg/dL (8-26) Creatinine 4.6 mg/dL (0.7-1.3) Estimated GFR (Cockcroft-Gault) 15.3 Glucose Level 152 mg/dL (70-99) Calcium Level 7.8 mg/dL (8.5-10.1) Phosphorus Level 4.2 mg/dL (2.6-4.7) Albumin 1.7 g/dL (3.4-5.0) Test 01/17/20 08:26 Glucose (Fingerstick) 127 mg/dL (70-99) Objective Assessment fever PCN allergy - has tolerated Amoxicillin Acute hypoxic resp failure WAYNE Morbid Obesity Acute on chronic diastolic heart failure: EF nml. DM HTN urgency Plan Plan of Care D/c Levoflox covered until 01/17 Add Zosyn F/u labs and cults F/u COVID may need addition tests if neg Thank you # [id number] SUSANA WAGGONER MD Jan 17, 2020 10:50
[2020-01-17 11:00] VITALS: BP 110/78
--- NOTE | 2020-01-17 11:40 | PDOC ---
SUBJECTIVE ROS Had fever, in Isolation now, propped up, O2 requirement up, Pt denies any new complaints OBJECTIVE Vital Signs Vital Signs Date Time Temp Pulse Resp B/P (MAP) Pulse Ox O2 Delivery O2 Flow Rate FiO2 01/17/20 08:33 74 137/80 01/17/20 08:00 Nasal Cannula 5.0 01/17/20 07:00 97.6 20 99 97.6 I & 0 Intake and Output 01/17/20 07:00 Intake Total 1850 ml Output Total 1700 ml Balance 150 ml Intake Oral 1550 ml IV Total 300 ml Output Urine Total 1700 ml PHYSICAL EXAM Physical Exam GENERAL: , no acute distress. HEAD AND NECK: Unremarkable, OM moist, O2 2 lts by NC CARDIAC: Regular rate and rhythm without murmurs, rubs or gallops. LUNGS: With decreased breath sounds at bases., no use of accessory muscles ABDOMEN: Obese, nontender. EXTREMITIES: Trace LE edema NEUROLOGIC: No focal deficits. MUSCULOSKELETAL: No trauma. SKIN: No rashes Freitas + , No CVA or SP tenderness DIAGNOSIS/ASSESSMENT Assessment & Plan WAYNE- ATN/Cardiorenal/ r/o Post Obstructive Baseline unknown to me , UA unremarkable except for Overt proteinuria Obtain OP labs, last seen by PCP in May 2019 , worsening renal status and Vol status, Recommned initiating HD(have been discussing with Pt and family every day ) Today Pt surprised and wants to discuss with his , if agreeable will need Temp HDC , Constantino RN no hydronephrosis on Renal US, Avoid nephrotoxins , Supportive care, strict I/O , Daily standing weight , HypoNatremia - Corrected for high Glucose Na Normal DM - Only on Metformin per Home list Acute on chronic diastolic heart failure in the setting of chronic kidney disease and hypertension. CxR suggestive of mild pulmonary edema and pleural effusions., Echo pending , clinically stable Recd Lasix x1 , improvement in symptoms, Good UOP, Monitor Fever- new, Per ID Morbid obesity COMMENT/RELEVANT DATA Meds Current Medications Medications (Trade) Dose Ordered Sig/Julián Start Time Stop Time Status Last Admin Dose Admin Acetaminophen (Tylenol) 650 mg PRN Q6HRS PRN 01/13/20 20:15 01/16/20 18:13 650 MG Amlodipine Besylate (Norvasc) 10 mg DAILY 01/15/20 09:00 6/18/20 08:29 10 MG Atorvastatin Calcium (Lipitor) 10 mg QHS 01/16/20 21:00 01/16/20 22:40 10 MG Carvedilol (Coreg) 12.5 mg BIDWMEALS 01/15/20 17:00 01/17/20 08:30 12.5 MG Dextrose (Dextrose 50%-Water Syringe) 12.5 gm PRN Q15MIN PRN 01/15/20 11:30 Furosemide (Lasix) 40 mg 1X ONCE 01/15/20 10:15 01/15/20 10:16 DC 01/15/20 11:22 40 MG Hydralazine HCl (Apresoline Inj) 10 mg PRN Q4HRS PRN 01/15/20 15:30 01/16/20 09:35 10 MG Hydralazine HCl (Apresoline) 50 mg BID 01/15/20 10:45 01/17/20 08:33 50 MG Insulin Human Lispro (HumaLOG) 0-7 UNITS TIDWMEALS 01/15/20 12:00 01/16/20 17:54 3 UNITS Isosorbide Mononitrate (Imdur) 60 mg DAILY 01/16/20 10:00 01/17/20 08:30 60 MG Levofloxacin/ Dextrose 50 ml @ 50 mls/hr Q48H 01/17/20 17:00 01/17/20 11:09 DC Levofloxacin/ Dextrose (Levaquin Per Pharmacy) 1 each PRN DAILY PRN 01/16/20 15:45 01/17/20 11:20 DC Linezolid/Dextrose 300 ml @ 300 mls/hr Q12HR 01/16/20 20:00 01/17/20 08:31 300 MLS/HR Metoprolol Tartrate (Lopressor) 25 mg BID 01/13/20 21:00 01/15/20 13:22 DC 01/15/20 08:28 25 MG Piperacillin Sod/ Tazobactam Sod 2.25 gm/Sodium Chloride 50 ml @ 100 mls/hr Q8HRS 01/17/20 12:00 Potassium Chloride (Klor-Con) 40 meq 1X ONCE 01/16/20 11:45 01/16/20 11:46 DC 01/16/20 13:18 40 MEQ Vancomycin HCl (Vanco Per Pharmacy) 1 each PRN DAILY PRN 01/16/20 19:15 UNV Lab Laboratory Tests Test 01/16/20 13:05 01/16/20 16:23 01/17/20 04:10 01/17/20 08:26 O2 Saturation 88 % (92-99) Arterial Blood pH 7.51 (7.35-7.45) Arterial Blood pCO2 at Patient Temp 26 mmHg (35-46) Arterial Blood pO2 at Patient Temp 53 mmHg (65-108) Arterial Blood HCO3 20 mmol/L (21-28) Arterial Blood Base Excess -2 mmol/L (-3-3) FiO2 2.5 lpm nc Glucose (Fingerstick) 194 mg/dL (70-99) 127 mg/dL (70-99) White Blood Count 5.9 x10^3/uL (4.0-11.0) Red Blood Count 3.81 x10^6/uL (4.30-5.70) Hemoglobin 10.9 g/dL (13.0-17.5) Hematocrit 32.9 % (39.0-53.0) Mean Corpuscular Volume 86 fL (79-100) Mean Corpuscular Hemoglobin 29 pg (25-35) Mean Corpuscular Hemoglobin Concent 33 g/dL (31-37) Red Cell Distribution Width 14.7 % (11.5-14.5) Platelet Count 219 x10^3/uL (140-400) Neutrophils (%) (Auto) 72 % (31-73) Lymphocytes (%) (Auto) 12 % (24-48) Monocytes (%) (Auto) 14 % (0-9) Eosinophils (%) (Auto) 1 % (0-3) Basophils (%) (Auto) 1 % (0-3) Neutrophils # (Auto) 4.3 x10^3/uL (1.8-7.7) Lymphocytes # (Auto) 0.7 x10^3/uL (1.0-4.8) Monocytes # (Auto) 0.8 x10^3/uL (0.0-1.1) Eosinophils # (Auto) 0.1 x10^3/uL (0.0-0.7) Basophils # (Auto) 0.0 x10^3/uL (0.0-0.2) Sodium Level 137 mmol/L (136-145) Potassium Level 3.7 mmol/L (3.5-5.1) Chloride Level 101 mmol/L (98-107) Carbon Dioxide Level 24 mmol/L (21-32) Anion Gap 12 (6-14) Blood Urea Nitrogen 50 mg/dL (8-26) Creatinine 4.6 mg/dL (0.7-1.3) Estimated GFR (Cockcroft-Gault) 15.3 Glucose Level 152 mg/dL (70-99) Calcium Level 7.8 mg/dL (8.5-10.1) Phosphorus Level 4.2 mg/dL (2.6-4.7) Albumin 1.7 g/dL (3.4-5.0) Test 01/17/20 11:33 Glucose (Fingerstick) 174 mg/dL (70-99) Results All relevant outside records, renal labs, imaging studies, telemetry/EKG's were reviewed. Justicifation of Admission Dx: Justifications for Admission: Justification of Admission Dx: Yes Respiratory Failure: Severe Resp Distress Chronic Renal Failure: Electrolyte Abnormality MARTINEZ GANT MD Jan 17, 2020 11:40
--- NOTE | 2020-01-17 11:52 | CONS ---
DATE OF CONSULTATION: 01/17/2020 PATIENT'S ROOM: 675. REQUESTING PHYSICIAN: Dr. Nettles. REASON FOR CONSULTATION: Fever. HISTORY OF PRESENT ILLNESS: The patient is a 69-year-old gentleman with a history of hypertension, diabetes and diastolic heart failure, presented to [facility] secondary to intermittent cough and dyspnea as well as lower extremity edema that had worsened over several weeks. On arrival on the , had a white count of 7.2 with 79% segs. He was found to be in acute renal failure with a creatinine of 3.9. Urinalysis was not consistent with a urinary tract infection. Initial chest x-ray showed borderline cardiomegaly with interstitial prominence. Trace pleural effusions seen with interstitial edema, no lobar consolidation. Lower extremity Dopplers were negative for DVT. Renal ultrasound did not show any hydronephrosis, underwent an echo, was found to have an EF of 55%. Last evening, he had a fever up to 102 degrees. He was placed on Zyvox and Levaquin and I have been consulted. Currently, the patient is sitting upright in bed. He is talking to his on the phone. He denies any fever, chills, sweats, but he did feel hot the other day. He has no sinus issues, no sore throat. He does have a cough with occasional sputum, but he denies any hemoptysis. No nausea or vomiting. Occasional constipation. States he is making a lot of urine prior to coming into the hospital. Denies any rashes or joint aches. PAST MEDICAL HISTORY: Positive for diabetes, hypertension, congestive heart failure. He denies any previous UTIs, any skin infections or pneumonias, but apparently does have a history of infection of his leg after previous surgery. Also, has had thumb surgery and rotator cuff surgery. REVIEW OF SYSTEMS: Otherwise negative except for as mentioned above. ALLERGIES: LISTED PENICILLIN, HAPPENED WHEN HE WAS A CHILD. HE STATES HE HAS TAKEN AMOXICILLIN. SOCIAL HISTORY: He has not traveled. He lives at home with his . Denies any ill contacts. He has no pets. Denies any alcohol, denies any tobacco use. He does not chew. 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 FAMILY HISTORY: Positive for diabetes. CURRENT MEDICATIONS: Include levofloxacin, Zosyn, Norvasc, Lipitor, Coreg, hydralazine, isosorbide mononitrate. PHYSICAL EXAMINATION: VITAL SIGNS: T-max was 102, currently 97.6; pulse 74; respirations 20; blood pressure 137/80. He is on 5 L nasal cannula. CONSTITUTIONAL: He is sitting upright in bed. He is cooperative. He is in no acute distress. HEENT: Pupils equal and reactive. He has normal conjunctivae. Oral cavity, pharynx is clear. NECK: Supple. Good range of motion. LUNGS: Had some mild crackles on the right. HEART: S1, S2. ABDOMEN: Obese, soft, nontender, nondistended with positive bowel sounds, no guarding. GENITOURINARY: Freitas is in place. EXTREMITIES: No clubbing, cyanosis. He had a trace to 1+ edema. SKIN: Warm without signs of generalized rash. NEUROLOGIC: He is nonfocal, answers questions. He is on nasal cannula oxygen. PSYCHIATRIC: Affect was appropriate. LABORATORY VALUES: White count today 5.9, hemoglobin 10.9, platelets 219, neutrophils 72, lymphs are 12. Creatinine 4.1, glucose of 163. Urinalysis not consistent with UTI. Chest x-ray from the : Borderline cardiomegaly, prominent pulmonary interstitial markings. IMPRESSION: 1. Fever. 2. Penicillin allergy, but he has tolerated amoxicillin. 3. Acute hypoxic respiratory failure. 4. Acute kidney injury. 5. Morbid obesity. 6. Acute on chronic diastolic heart failure, EF normal. 7. Diabetes. 8. Hypertension urgency. RECOMMENDATIONS: We will discontinue levofloxacin. He is covered until 01/17. We will add Zosyn. Follow up labs and cultures. Follow up COVID. May need additional tests if negative. Thank you for allowing me to participate in the patient's care. If you have any questions, please do not hesitate to contact me. This was discussed with nursing. SUSANA WAGGONER MD DR: SERA/aron JOB#: [id number] / [id number]
--- NOTE | 2020-01-17 12:04 | PDOC ---
KATE GOMEZ ANTIQUE CLOCK REPAIRER 01/17/20 1204: CARDIO Progress Notes Date and Time Date of Service 01/17/2020 Time of Evaluation 1010 Subjective Subjective: No Chest Pain, No shortness of breath, No Palpitations Vitals Vitals Vital Signs Date Time Temp Pulse Resp B/P (MAP) Pulse Ox O2 Delivery O2 Flow Rate FiO2 01/17/20 11:00 97.5 73 20 110/78 (89) 95 Nasal Cannula 3.0 97.5 Weight Weight [ ] Input and Output Intake and Output Intake and Output 01/17/20 07:00 Intake Total 1850 ml Output Total 1700 ml Balance 150 ml Intake Oral 1550 ml IV Total 300 ml Output Urine Total 1700 ml Laboratory Labs Laboratory Tests Test 01/16/20 13:05 01/16/20 16:23 01/17/20 04:10 01/17/20 08:26 O2 Saturation 88 % (92-99) Arterial Blood pH 7.51 (7.35-7.45) Arterial Blood pCO2 at Patient Temp 26 mmHg (35-46) Arterial Blood pO2 at Patient Temp 53 mmHg (65-108) Arterial Blood HCO3 20 mmol/L (21-28) Arterial Blood Base Excess -2 mmol/L (-3-3) FiO2 2.5 lpm nc Glucose (Fingerstick) 194 mg/dL (70-99) 127 mg/dL (70-99) White Blood Count 5.9 x10^3/uL (4.0-11.0) Red Blood Count 3.81 x10^6/uL (4.30-5.70) Hemoglobin 10.9 g/dL (13.0-17.5) Hematocrit 32.9 % (39.0-53.0) Mean Corpuscular Volume 86 fL (79-100) Mean Corpuscular Hemoglobin 29 pg (25-35) Mean Corpuscular Hemoglobin Concent 33 g/dL (31-37) Red Cell Distribution Width 14.7 % (11.5-14.5) Platelet Count 219 x10^3/uL (140-400) Neutrophils (%) (Auto) 72 % (31-73) Lymphocytes (%) (Auto) 12 % (24-48) Monocytes (%) (Auto) 14 % (0-9) Eosinophils (%) (Auto) 1 % (0-3) Basophils (%) (Auto) 1 % (0-3) Neutrophils # (Auto) 4.3 x10^3/uL (1.8-7.7) Lymphocytes # (Auto) 0.7 x10^3/uL (1.0-4.8) Monocytes # (Auto) 0.8 x10^3/uL (0.0-1.1) Eosinophils # (Auto) 0.1 x10^3/uL (0.0-0.7) Basophils # (Auto) 0.0 x10^3/uL (0.0-0.2) Sodium Level 137 mmol/L (136-145) Potassium Level 3.7 mmol/L (3.5-5.1) Chloride Level 101 mmol/L (98-107) Carbon Dioxide Level 24 mmol/L (21-32) Anion Gap 12 (6-14) Blood Urea Nitrogen 50 mg/dL (8-26) Creatinine 4.6 mg/dL (0.7-1.3) Estimated GFR (Cockcroft-Gault) 15.3 Glucose Level 152 mg/dL (70-99) Calcium Level 7.8 mg/dL (8.5-10.1) Phosphorus Level 4.2 mg/dL (2.6-4.7) Albumin 1.7 g/dL (3.4-5.0) Test 01/17/20 11:33 Glucose (Fingerstick) 174 mg/dL (70-99) Physical Exam HEENT: Neck Supple W Full Motion Chest: Symmetric LUNGS: Other (diminished ) Heart: S1S2, RRR (SR) Abdomen: Soft N/T Extremities: Other (trace to 1+ bilateral LE edema ) Neurology: alert, oriented, follow commands Assessment Assessment 1. Acute on chronic diastolic heart failure: EF nml. No SOA, no further tachypnea 2. Severe WAYNE on CKD: unknown baseline and no improvement. nephrology following 3. HTN urgency: BP much better with imdur addition 4. DM2 5. Morbid obesity and suspecting underlying NOE 6. Hypokalemia: resolved 7. Asymptomatic SB: lowest in the 40s, no pauses 8. Protein malnutrition Recommendations 1. RHC is a consideration. Await covid test, Anticipating to start HD today. 2. Continue coreg, no further increase due to naomy episodes. Continue imdur,norvasc and hydralazine 3. Supportive care. Justicifation of Admission Dx: Justifications for Admission: Justification of Admission Dx: Yes Respiratory Failure: Severe Resp Distress Chronic Renal Failure: Electrolyte Abnormality MARCOS FENTON MD 01/17/20 1232: CARDIO Progress Notes Plan Plan Pt. seen and examined. Agree with above OCEAN FORWARDER note. No new issues from a CV standpoint Worsening renal function, agree with HD. Await covid testing. Thanks KATE GOMEZ APRN Jan 17, 2020 12:04 MARCOS FENTON MD Jan 17, 2020 12:32
[2020-01-17] MEDS: PIPERACILLIN/TAZOBACTAM 2.25 GM in IV NORMAL SALINE 50ML 50 ML IV SCH ×2 (12:30→20:59)
--- NOTE | 2020-01-17 12:38 | NUR ---
SS following up with discharge planning. SS reviewed pt chart and discussed with pt RN. Pt is from home with spouse and is currently requiring oxygen. Pt on IV Zosyn and Zyvox. Outpatient hemodialysis recommended. Pt discussing with family. Serology labs ordered. Pt is COVID19 test pending. SS will continue to follow for discharge planning.
[2020-01-17] MEDS ORDERED: LIDOCAINE WITH 8.4% SOD BICARB 3 ML DISP.SYRIN. ONE (13:07)
[2020-01-17] MEDS ORDERED: LIDOCAINE WITH 8.4% SOD BICARB 3 ML DISP.SYRIN. INJ ONE (13:15)
--- NOTE | 2020-01-17 14:09 | RAD ---
Single AP view of the chest. Comparison: 01/16/2020. Indication: Line placement Findings: New right internal jugular hemodialysis catheter seen with tip in the right atrium. The heart is enlarged but stable. There is no pneumothorax or effusion. Mild pulmonary vascular congestion. Impression: 1. New right internal jugular hemodialysis catheter appears in good position without pneumothorax. 2. Mildly increasing pulmonary vascular congestion with stable cardiomegaly. Electronically signed by: Mao Sharma MD (01/17/2020 2:06 PM) [id number]
[2020-01-17 15:00] VITALS: BP 141/82
--- NOTE | 2020-01-17 15:35 | RAD ---
Procedure: Ultrasound-guided placement of right internal jugular temporary dialysis catheter01/17/2020 1:31 PM Clinical Indication: Temporary dialysis line, dialysis planned for today Discussion: The risks and benefits of the procedure were discussed the patient and/or their outside energy sales representatives. Informed consent was obtained. A timeout procedure was performed. All elements of maximal sterile barrier technique including the use of a cap, mask, sterile gown, sterile gloves, large sterile sheet, appropriate hand hygiene, and 2% chlorhexidine for cutaneous antisepsis (or acceptable alternative antiseptic per current guidelines) were followed for this procedure. The patient was prepped and draped in the usual sterile fashion. Ultrasound interrogation of the right neck revealed patency and compressibility of the right internal jugular vein. A 21-gauge micropuncture was then used to gain access to this vein under ultrasound guidance. A hard copy ultrasound image was recorded. A guidewire was advanced centrally. 5 [place] sheath was placed. Over a wire following dilatation, a dual-lumen temporary dialysis catheter was advanced centrally. Catheter was found to flush and aspirate normally. Follow-up chest radiograph demonstrates tip at the cavoatrial junction. Catheter secured in place and a sterile dressing was applied. No immediate complications were identified. Impression: Successful ultrasound-guided placement of right internal temporary dialysis catheter
--- NOTE | 2020-01-17 15:55 | NUR ---
Patient to dialysis per bed. Dressing right neck remains dry and intact, with no shadowing noted.
[2020-01-17] MEDS ORDERED: IV NORMAL SALINE 1000ML BAG 1,000 ML IV PRN ×2 (16:51)
[2020-01-17] MEDS ORDERED: ACETAMINOPHEN 500 MG TABLET PO PRN (17:00)
[2020-01-17] MEDS ORDERED: DIALYSIS PATIENT. MC PRN (17:00)
[2020-01-17] MEDS ORDERED: diphenhydrAMINE 50 MG/ML VIAL IV PRN ×2 (17:00)
--- NOTE | 2020-01-17 18:30 | NUR ---
Patient returned to room per bed. Patient alert and oriented. Dialysis line dressing dry and intact. O2 at 3L/NC. Pt repositioned in bed. Freitas draining pink urine. Phone, (room and cell phone), call light within easy reach. Patient given meal tray.
[2020-01-17 19:00] VITALS: BP 140/86
[2020-01-17] MEDS: ATORVASTATIN CALCIUM 10 MG TABLET. PO SCH (21:00)
[2020-01-17 23:00] VITALS: BP 127/77
[2020-01-18 03:00] VITALS: BP 142/79
[2020-01-18 04:04] LABS: BASO % 1 % (0-3); EOS # 0.2 x10^3/uL (0.0-0.7); EOS % 4 % (0-3); HEMATOCRIT 33.3 % (39.0-53.0); HEMOGLOBIN 11.2 g/dL (13.0-17.5); LYMPH # 0.8 x10^3/uL (1.0-4.8); LYMPH % 15 % (24-48); MEAN CORPUSCULAR HEMOGLOBIN 29 pg (25-35); MEAN CORPUSCULAR HGB CONC 34 g/dL (31-37); MEAN CORPUSCULAR VOLUME 86 fL (79-100); MONO # 0.8 x10^3/uL (0.0-1.1); MONO % 15 % (0-9); NEUT # 3.8 x10^3/uL (1.8-7.7); NEUT % 66 % (31-73); PLATELET COUNT 213 x10^3/uL (140-400); RED BLOOD COUNT 3.89 x10^6/uL (4.30-5.70); RED CELL DISTRIBUTION WIDTH 14.5 % (11.5-14.5); WHITE BLOOD COUNT 5.7 x10^3/uL (4.0-11.0)
[2020-01-18 04:36] LABS: ALBUMIN 1.7 g/dL (3.4-5.0); CALCIUM 7.5 mg/dL (8.5-10.1); PHOSPHORUS 4.5 mg/dL (2.6-4.7); POTASSIUM 3.9 mmol/L (3.5-5.1)
[2020-01-18] MEDS: PIPERACILLIN/TAZOBACTAM 2.25 GM in IV NORMAL SALINE 50ML 50 ML IV SCH ×3 (05:54→20:18)
[2020-01-18 07:00] VITALS: BP 153/96
[2020-01-18] MEDS ORDERED: IV NORMAL SALINE 1000ML BAG 1,000 ML IV PRN ×2 (07:46)
[2020-01-18] MEDS: INSULIN LISPRO 300 UNITS/3 ML VIAL. SQ SCH ×3 (08:00→16:46)
[2020-01-18] MEDS ORDERED: DIALYSIS PATIENT. MC PRN (08:00)
[2020-01-18] MEDS: CARVEDILOL 12.5 MG TABLET. PO SCH ×2 (08:00→16:37)
[2020-01-18] MEDS ORDERED: diphenhydrAMINE 50 MG/ML VIAL IV PRN ×2 (08:00)
--- NOTE | 2020-01-18 09:04 | NUR ---
SS following up with discharge planning. SS reviewed pt chart and discussed with pt RN. Pt transferred to room 244. Pt started dialysis on 01/17/2020. SS phoned and faxed completed dialysis referral to [facility], ; fax [phone]. SS will await chair time and will proceed accordingly. Pt is currently requiring oxygen and is on IV Zosyn and Zyvox. SS will continue to follow for discharge planning.
--- NOTE | 2020-01-18 09:07 | NUR ---
pt left unit for ct at approx 0910
--- NOTE | 2020-01-18 09:26 | PDOC ---
SUBJECTIVE ROS HD on 01/16 , tolerated well, no complaints this am OBJECTIVE Vital Signs Vital Signs Date Time Temp Pulse Resp B/P (MAP) Pulse Ox O2 Delivery O2 Flow Rate FiO2 01/18/20 03:00 97.9 81 18 142/79 (100) 96 Nasal Cannula 3.0 97.9 I & 0 Intake and Output 01/18/20 06:59 Intake Total 920 ml Output Total 2080 ml Balance -1160 ml Intake Oral 570 ml IV Total 350 ml Output Urine Total 2080 ml # Bowel Movements 1 PHYSICAL EXAM Physical Exam GENERAL: , no acute distress. HEAD AND NECK: Unremarkable, OM moist, O2 2 lts by NC CARDIAC: Regular rate and rhythm without murmurs, rubs or gallops. LUNGS: With decreased breath sounds at bases., no use of accessory muscles ABDOMEN: Obese, nontender. EXTREMITIES: Trace LE edema NEUROLOGIC: No focal deficits. MUSCULOSKELETAL: No trauma. SKIN: No rashes Freitas + , No CVA or SP tenderness DIAGNOSIS/ASSESSMENT Assessment & Plan WAYNE- ATN/Cardiorenal/ r/o Post Obstructive Baseline unknown to me , UA unremarkable except for Overt proteinuria Initiated on HD on 01/16, 2nd treatment today - seen on HD, tolerating well, continue a sordered, Dw DRn no hydronephrosis on Renal US, Avoid nephrotoxins , Supportive care, strict I/O , Daily standing weight , Acute hypoxic respiratory failure RLL PNEUMONIA /some acute diastolic heart failure in addition to his morbid obesity. CT - Asymmetric right lower lobe groundglass opacities and nodular consolidations, suspected to represent infection or aspiration. DM - Only on Metformin at home Acute on chronic diastolic Fever- new, Per ID Morbid obesity COMMENT/RELEVANT DATA Meds Current Medications Medications (Trade) Dose Ordered Sig/Julián Start Time Stop Time Status Last Admin Dose Admin Acetaminophen (Tylenol) 500 mg 1X PRN PRN 01/17/20 17:00 01/18/20 16:59 Amlodipine Besylate (Norvasc) 10 mg DAILY 01/15/20 09:00 01/17/20 08:29 10 MG Atorvastatin Calcium (Lipitor) 10 mg QHS 01/16/20 21:00 01/17/20 21:00 10 MG Carvedilol (Coreg) 12.5 mg BIDWMEALS 01/15/20 17:00 01/17/20 08:30 12.5 MG Dextrose (Dextrose 50%-Water Syringe) 12.5 gm PRN Q15MIN PRN 01/15/20 11:30 Diphenhydramine HCl (Benadryl) 25 mg 1X PRN PRN 01/18/20 08:00 01/19/20 07:59 Furosemide (Lasix) 40 mg 1X ONCE 01/15/20 10:15 01/15/20 10:16 DC 01/15/20 11:22 40 MG Hydralazine HCl (Apresoline Inj) 10 mg PRN Q4HRS PRN 01/15/20 15:30 01/16/20 09:35 10 MG Hydralazine HCl (Apresoline) 50 mg BID 01/15/20 10:45 01/17/20 21:00 50 MG Info (PHARMACY MONITORING -- do not chart) 1 each PRN DAILY PRN 01/18/20 08:00 Insulin Human Lispro (HumaLOG) 0-7 UNITS TIDWMEALS 01/15/20 12:00 01/16/20 17:54 3 UNITS Isosorbide Mononitrate (Imdur) 60 mg DAILY 01/16/20 10:00 01/17/20 08:30 60 MG Levofloxacin/ Dextrose 50 ml @ 50 mls/hr Q48H 01/17/20 17:00 01/17/20 11:09 DC Levofloxacin/ Dextrose (Levaquin Per Pharmacy) 1 each PRN DAILY PRN 01/16/20 15:45 01/17/20 11:20 DC Lidocaine HCl (Buffered Lidocaine 1%) 6 ml 1X ONCE 01/17/20 13:15 01/17/20 13:16 DC 01/17/20 13:33 3 ML Linezolid/Dextrose 300 ml @ 300 mls/hr Q12HR 01/16/20 20:00 01/17/20 21:00 300 MLS/HR Metoprolol Tartrate (Lopressor) 25 mg BID 01/13/20 21:00 01/15/20 13:22 DC 01/15/20 08:28 25 MG Piperacillin Sod/ Tazobactam Sod 2.25 gm/Sodium Chloride 50 ml @ 100 mls/hr Q8HRS 01/17/20 12:00 01/18/20 05:54 100 MLS/HR Potassium Chloride (Klor-Con) 40 meq 1X ONCE 01/16/20 11:45 01/16/20 11:46 DC 01/16/20 13:18 40 MEQ Sodium Chloride 1,000 ml @ 400 mls/hr Q2H30M PRN 01/18/20 07:46 01/18/20 19:45 Vancomycin HCl (Vanco Per Pharmacy) 1 each PRN DAILY PRN 01/16/20 19:15 UNV Lab Laboratory Tests Test 01/17/20 11:33 01/17/20 21:10 01/18/20 02:30 Glucose (Fingerstick) 174 mg/dL (70-99) 256 mg/dL (70-99) White Blood Count 5.7 x10^3/uL (4.0-11.0) Red Blood Count 3.89 x10^6/uL (4.30-5.70) Hemoglobin 11.2 g/dL (13.0-17.5) Hematocrit 33.3 % (39.0-53.0) Mean Corpuscular Volume 86 fL (79-100) Mean Corpuscular Hemoglobin 29 pg (25-35) Mean Corpuscular Hemoglobin Concent 34 g/dL (31-37) Red Cell Distribution Width 14.5 % (11.5-14.5) Platelet Count 213 x10^3/uL (140-400) Neutrophils (%) (Auto) 66 % (31-73) Lymphocytes (%) (Auto) 15 % (24-48) Monocytes (%) (Auto) 15 % (0-9) Eosinophils (%) (Auto) 4 % (0-3) Basophils (%) (Auto) 1 % (0-3) Neutrophils # (Auto) 3.8 x10^3/uL (1.8-7.7) Lymphocytes # (Auto) 0.8 x10^3/uL (1.0-4.8) Monocytes # (Auto) 0.8 x10^3/uL (0.0-1.1) Eosinophils # (Auto) 0.2 x10^3/uL (0.0-0.7) Basophils # (Auto) 0.0 x10^3/uL (0.0-0.2) Sodium Level 137 mmol/L (136-145) Potassium Level 3.9 mmol/L (3.5-5.1) Chloride Level 99 mmol/L (98-107) Carbon Dioxide Level 27 mmol/L (21-32) Anion Gap 11 (6-14) Blood Urea Nitrogen 43 mg/dL (8-26) Creatinine 4.0 mg/dL (0.7-1.3) Estimated GFR (Cockcroft-Gault) 18.0 Glucose Level 167 mg/dL (70-99) Calcium Level 7.5 mg/dL (8.5-10.1) Phosphorus Level 4.5 mg/dL (2.6-4.7) Albumin 1.7 g/dL (3.4-5.0) Results All relevant outside records, renal labs, imaging studies, telemetry/EKG's were reviewed. Justicifation of Admission Dx: Justifications for Admission: Justification of Admission Dx: Yes Respiratory Failure: Severe Resp Distress Chronic Renal Failure: Electrolyte Abnormality MARTINEZ GANT MD Jan 18, 2020 09:25
--- NOTE | 2020-01-18 09:44 | PDOC ---
KATE GOMEZ [employer] 01/18/20 0944: CARDIO Progress Notes Date and Time Date of Service 01/18/2020 Time of Evaluation 0930 Subjective Subjective: No Chest Pain, No shortness of breath, No Palpitations Vitals Vitals Vital Signs Date Time Temp Pulse Resp B/P (MAP) Pulse Ox O2 Delivery O2 Flow Rate FiO2 01/18/20 03:00 97.9 81 18 142/79 (100) 96 Nasal Cannula 3.0 97.9 Weight Weight [ ] Input and Output Intake and Output Intake and Output 01/18/20 07:00 Intake Total 920 ml Output Total 2080 ml Balance -1160 ml Intake Oral 570 ml IV Total 350 ml Output Urine Total 2080 ml # Bowel Movements 1 Laboratory Labs Laboratory Tests Test 01/17/20 11:33 01/17/20 21:10 01/18/20 02:30 Glucose (Fingerstick) 174 mg/dL (70-99) 256 mg/dL (70-99) White Blood Count 5.7 x10^3/uL (4.0-11.0) Red Blood Count 3.89 x10^6/uL (4.30-5.70) Hemoglobin 11.2 g/dL (13.0-17.5) Hematocrit 33.3 % (39.0-53.0) Mean Corpuscular Volume 86 fL (79-100) Mean Corpuscular Hemoglobin 29 pg (25-35) Mean Corpuscular Hemoglobin Concent 34 g/dL (31-37) Red Cell Distribution Width 14.5 % (11.5-14.5) Platelet Count 213 x10^3/uL (140-400) Neutrophils (%) (Auto) 66 % (31-73) Lymphocytes (%) (Auto) 15 % (24-48) Monocytes (%) (Auto) 15 % (0-9) Eosinophils (%) (Auto) 4 % (0-3) Basophils (%) (Auto) 1 % (0-3) Neutrophils # (Auto) 3.8 x10^3/uL (1.8-7.7) Lymphocytes # (Auto) 0.8 x10^3/uL (1.0-4.8) Monocytes # (Auto) 0.8 x10^3/uL (0.0-1.1) Eosinophils # (Auto) 0.2 x10^3/uL (0.0-0.7) Basophils # (Auto) 0.0 x10^3/uL (0.0-0.2) Sodium Level 137 mmol/L (136-145) Potassium Level 3.9 mmol/L (3.5-5.1) Chloride Level 99 mmol/L (98-107) Carbon Dioxide Level 27 mmol/L (21-32) Anion Gap 11 (6-14) Blood Urea Nitrogen 43 mg/dL (8-26) Creatinine 4.0 mg/dL (0.7-1.3) Estimated GFR (Cockcroft-Gault) 18.0 Glucose Level 167 mg/dL (70-99) Calcium Level 7.5 mg/dL (8.5-10.1) Phosphorus Level 4.5 mg/dL (2.6-4.7) Albumin 1.7 g/dL (3.4-5.0) Physical Exam HEENT: Neck Supple W Full Motion Chest: Symmetric LUNGS: Other (diminished bases) Heart: S1S2, RRR (SR without ectopies) Abdomen: Soft N/T Extremities: No Edema, No Calf Tenderness Neurology: alert, oriented, follow commands Assessment Assessment 1. Acute on chronic diastolic heart failure: EF nml. SOA much better post HD. 2. Severe WAYNE on CKD: HD statrted. nephrology following 3. HTN urgency:controlled 4. DM2 5. Morbid obesity and suspecting underlying NOE 6. Hypokalemia: resolved 7. Asymptomatic SB: no further episodes Mean 60-70s 8. Protein malnutrition 9. Possible pneumonia Recommendations 1. Covid negative. Fluid off loading per HD. CT chest 2. Continue current BP regimen 3. Supportive care. Justicifation of Admission Dx: Justifications for Admission: Justification of Admission Dx: Yes Respiratory Failure: Severe Resp Distress Chronic Renal Failure: Electrolyte Abnormality MARCOS FENTON MD 01/20/20 1617: CARDIO Progress Notes Plan Plan Late entry for 01/18/2020 Pt. seen and examined. Agree with above DIRECTOR PHARMACOLOGY note. Supportive care. Will follow along. Consider outpt stress testing depending on symptoms after HD/Fluid removal Thanks KATE GOMEZ APRN Jan 18, 2020 09:44 MARCOS FENTON MD Jan 20, 2020 16:17
--- NOTE | 2020-01-18 09:53 | RAD ---
CT CHEST WO CONTRAST INDICATION: chf vs pna COMPARISON STUDY: Radiograph 01/17/2020. Renal ultrasound 01/14/2020 TECHNIQUE: Unenhanced axial images were obtained through the lungs and upper abdomen. Coronal and sagittal multiplanar reconstructions were also obtained. PQRS compliance statement: One or more of the following individualized dose reduction techniques were utilized for this examination: 1. Automated exposure control 2. Adjustment of the mA and/or kV according to patient size 3. Use of iterative reconstruction technique FINDINGS: Lungs and Airways: Patchy asymmetric right lower lobe groundglass opacities and nodular consolidations. Bronchial wall thickening. Pleura: Trace left pleural effusion. Heart and Mediastinum: Right thyroid nodule measuring 3.6 cm. No axillary or supraclavicular lymphadenopathy. No mediastinal, hilar or retrocrural lymphadenopathy. Cardiomegaly. No pericardial effusion. The great vessels of the thorax are normal. Right IJ central venous catheter. Abdomen: Low-attenuation renal lesions, better characterized as simple cysts on recent renal ultrasound. Bones and Soft Tissues: Degenerative changes of the spine with anterior bridging osteophytes. IMPRESSION: 1. Asymmetric right lower lobe groundglass opacities and nodular consolidations, suspected to represent infection or aspiration. 2. Trace left pleural effusion. 3. Incompletely characterized right thyroid nodule measuring 3.6 cm could be further evaluated with thyroid ultrasound Electronically signed by: Adriel Lawson MD (01/18/2020 9:50 AM) [id number]
--- NOTE | 2020-01-18 10:10 | PDOC ---
PROGRESS NOTES Chief Complaint Chief Complaint IMPRESSION Acute on chronic systolic and diastolic heart failure RLL PNEUMONIA /some acute diastolic heart failure in addition to his morbid Severe edema Hyponatremia Severe renal failure Severe noncompliance, diabetes, hypertension, congestive heart failure, rotator cuff surgery, thumb surgery, leg surgery after an infection in his leg. Incompletely characterized right thyroid nodule measuring 3.6 cm could be fur ther evaluated with thyroid ultrasound History of Present Illness History of Present Illness 01/18/2020 Patient seen and examined ruling out COVID-19 Chart reviewed Discussed with RN THYROID SONO 01/16/2020 Patient seen and examined Pulmonary harris he seems to be breathing better but his creatinine is going up to 4.1 I calculated an estimated GFR at around 28 His friend is present Chart reviewed Discussed with RN 01/15/2020 Patient seen and examined We have now placed a Freitas to bedside drainage as he did have 318 cc of post void residual Creatinine is down to 3.8 from 3.9 His daughter is at the bedside and we discussed the case with her Discussed with RN Chart reviewed We are trying Lasix today cautiously His EF was surprisingly normal at 55% 01/14/2020 Patient seen and examined He is still edematous and short of breath Family present Discussed with RN We are going to check a post void residual and place a Freitas if necessary Chart reviewed Vitals Vitals Vital Signs Date Time Temp Pulse Resp B/P (MAP) Pulse Ox O2 Delivery O2 Flow Rate FiO2 01/18/20 03:00 97.9 81 18 142/79 (100) 96 Nasal Cannula 3.0 97.9 Physical Exam General: Alert, mild distress Heart: Regular rate Lungs: Other (decrease bs) Abdomen: Normal bowel sounds, Other (Distended) Extremities: Other Skin: No rashes, No breakdown Labs LABS CT CHEST WO CONTRAST INDICATION: chf vs pna COMPARISON STUDY: Radiograph 01/17/2020. Renal ultrasound 01/14/2020 TECHNIQUE: Unenhanced axial images were obtained through the lungs and upper abdomen. Coronal and sagittal multiplanar reconstructions were also obtained. PQRS compliance statement: One or more of the following individualized dose reduction techniques were utilized for this examination: 1. Automated exposure control 2. Adjustment of the mA and/or kV according to patient size 3. Use of iterative reconstruction technique FINDINGS: Lungs and Airways: Patchy asymmetric right lower lobe groundglass opacities and nodular consolidations. Bronchial wall thickening. Pleura: Trace left pleural effusion. Heart and Mediastinum: Right thyroid nodule measuring 3.6 cm. No axillary or supraclavicular lymphadenopathy. No mediastinal, hilar or retrocrural lymphadenopathy. Cardiomegaly. No pericardial effusion. The great vessels of the thorax are normal. Right IJ central venous catheter. Abdomen: Low-attenuation renal lesions, better characterized as simple cysts on recent renal ultrasound. Bones and Soft Tissues: Degenerative changes of the spine with anterior bridging osteophytes. IMPRESSION: 1. Asymmetric right lower lobe groundglass opacities and nodular consolidations, suspected to represent infection or aspiration. 2. Trace left pleural effusion. 3. Incompletely characterized right thyroid nodule measuring 3.6 cm could be further evaluated with thyroid ultrasound Electronically signed by: Adriel Lawson MD (01/18/2020 9:50 AM) [id number] Laboratory Tests Test 01/17/20 11:33 01/17/20 21:10 01/18/20 02:30 Glucose (Fingerstick) 174 mg/dL (70-99) 256 mg/dL (70-99) White Blood Count 5.7 x10^3/uL (4.0-11.0) Red Blood Count 3.89 x10^6/uL (4.30-5.70) Hemoglobin 11.2 g/dL (13.0-17.5) Hematocrit 33.3 % (39.0-53.0) Mean Corpuscular Volume 86 fL (79-100) Mean Corpuscular Hemoglobin 29 pg (25-35) Mean Corpuscular Hemoglobin Concent 34 g/dL (31-37) Red Cell Distribution Width 14.5 % (11.5-14.5) Platelet Count 213 x10^3/uL (140-400) Neutrophils (%) (Auto) 66 % (31-73) Lymphocytes (%) (Auto) 15 % (24-48) Monocytes (%) (Auto) 15 % (0-9) Eosinophils (%) (Auto) 4 % (0-3) Basophils (%) (Auto) 1 % (0-3) Neutrophils # (Auto) 3.8 x10^3/uL (1.8-7.7) Lymphocytes # (Auto) 0.8 x10^3/uL (1.0-4.8) Monocytes # (Auto) 0.8 x10^3/uL (0.0-1.1) Eosinophils # (Auto) 0.2 x10^3/uL (0.0-0.7) Basophils # (Auto) 0.0 x10^3/uL (0.0-0.2) Sodium Level 137 mmol/L (136-145) Potassium Level 3.9 mmol/L (3.5-5.1) Chloride Level 99 mmol/L (98-107) Carbon Dioxide Level 27 mmol/L (21-32) Anion Gap 11 (6-14) Blood Urea Nitrogen 43 mg/dL (8-26) Creatinine 4.0 mg/dL (0.7-1.3) Estimated GFR (Cockcroft-Gault) 18.0 Glucose Level 167 mg/dL (70-99) Calcium Level 7.5 mg/dL (8.5-10.1) Phosphorus Level 4.5 mg/dL (2.6-4.7) Albumin 1.7 g/dL (3.4-5.0) Assessment and Plan Assessmemt and Plan Problems Medical Problems: (1) Bilateral lower extremity edema Status: Acute (2) CHF (congestive heart failure) Status: Acute (3) CRF (chronic renal failure) Status: Acute Comment Review of Relevant I have reviewed the following items reji (where applicable) has been applied. Labs Laboratory Tests Test 01/16/20 11:23 01/16/20 13:05 01/16/20 16:23 01/16/20 19:30 Glucose (Fingerstick) 215 mg/dL (70-99) 194 mg/dL (70-99) O2 Saturation 88 % (92-99) Arterial Blood pH 7.51 (7.35-7.45) Arterial Blood pCO2 at Patient Temp 26 mmHg (35-46) Arterial Blood pO2 at Patient Temp 53 mmHg (65-108) Arterial Blood HCO3 20 mmol/L (21-28) Arterial Blood Base Excess -2 mmol/L (-3-3) FiO2 2.5 lpm nc Coronavirus (COVID-19)(PCR) Not detected (NOT DETECT.) Test 01/17/20 04:10 01/17/20 08:26 01/17/20 11:33 01/17/20 21:10 White Blood Count 5.9 x10^3/uL (4.0-11.0) Red Blood Count 3.81 x10^6/uL (4.30-5.70) Hemoglobin 10.9 g/dL (13.0-17.5) Hematocrit 32.9 % (39.0-53.0) Mean Corpuscular Volume 86 fL (79-100) Mean Corpuscular Hemoglobin 29 pg (25-35) Mean Corpuscular Hemoglobin Concent 33 g/dL (31-37) Red Cell Distribution Width 14.7 % (11.5-14.5) Platelet Count 219 x10^3/uL (140-400) Neutrophils (%) (Auto) 72 % (31-73) Lymphocytes (%) (Auto) 12 % (24-48) Monocytes (%) (Auto) 14 % (0-9) Eosinophils (%) (Auto) 1 % (0-3) Basophils (%) (Auto) 1 % (0-3) Neutrophils # (Auto) 4.3 x10^3/uL (1.8-7.7) Lymphocytes # (Auto) 0.7 x10^3/uL (1.0-4.8) Monocytes # (Auto) 0.8 x10^3/uL (0.0-1.1) Eosinophils # (Auto) 0.1 x10^3/uL (0.0-0.7) Basophils # (Auto) 0.0 x10^3/uL (0.0-0.2) Sodium Level 137 mmol/L (136-145) Potassium Level 3.7 mmol/L (3.5-5.1) Chloride Level 101 mmol/L (98-107) Carbon Dioxide Level 24 mmol/L (21-32) Anion Gap 12 (6-14) Blood Urea Nitrogen 50 mg/dL (8-26) Creatinine 4.6 mg/dL (0.7-1.3) Estimated GFR (Cockcroft-Gault) 15.3 Glucose Level 152 mg/dL (70-99) Calcium Level 7.8 mg/dL (8.5-10.1) Phosphorus Level 4.2 mg/dL (2.6-4.7) Albumin 1.7 g/dL (3.4-5.0) Hepatitis B Surface Antigen Nonreactive (Nonreactive) Hepatitis B Surface Antibody Nonreactive Hepatitis B Core Total Antibody Nonreactive (Nonreactive) Glucose (Fingerstick) 127 mg/dL (70-99) 174 mg/dL (70-99) 256 mg/dL (70-99) Test 01/18/20 02:30 White Blood Count 5.7 x10^3/uL (4.0-11.0) Red Blood Count 3.89 x10^6/uL (4.30-5.70) Hemoglobin 11.2 g/dL (13.0-17.5) Hematocrit 33.3 % (39.0-53.0) Mean Corpuscular Volume 86 fL (79-100) Mean Corpuscular Hemoglobin 29 pg (25-35) Mean Corpuscular Hemoglobin Concent 34 g/dL (31-37) Red Cell Distribution Width 14.5 % (11.5-14.5) Platelet Count 213 x10^3/uL (140-400) Neutrophils (%) (Auto) 66 % (31-73) Lymphocytes (%) (Auto) 15 % (24-48) Monocytes (%) (Auto) 15 % (0-9) Eosinophils (%) (Auto) 4 % (0-3) Basophils (%) (Auto) 1 % (0-3) Neutrophils # (Auto) 3.8 x10^3/uL (1.8-7.7) Lymphocytes # (Auto) 0.8 x10^3/uL (1.0-4.8) Monocytes # (Auto) 0.8 x10^3/uL (0.0-1.1) Eosinophils # (Auto) 0.2 x10^3/uL (0.0-0.7) Basophils # (Auto) 0.0 x10^3/uL (0.0-0.2) Sodium Level 137 mmol/L (136-145) Potassium Level 3.9 mmol/L (3.5-5.1) Chloride Level 99 mmol/L (98-107) Carbon Dioxide Level 27 mmol/L (21-32) Anion Gap 11 (6-14) Blood Urea Nitrogen 43 mg/dL (8-26) Creatinine 4.0 mg/dL (0.7-1.3) Estimated GFR (Cockcroft-Gault) 18.0 Glucose Level 167 mg/dL (70-99) Calcium Level 7.5 mg/dL (8.5-10.1) Phosphorus Level 4.5 mg/dL (2.6-4.7) Albumin 1.7 g/dL (3.4-5.0) Laboratory Tests Test 01/17/20 11:33 01/17/20 21:10 01/18/20 02:30 Glucose (Fingerstick) 174 mg/dL (70-99) 256 mg/dL (70-99) White Blood Count 5.7 x10^3/uL (4.0-11.0) Red Blood Count 3.89 x10^6/uL (4.30-5.70) Hemoglobin 11.2 g/dL (13.0-17.5) Hematocrit 33.3 % (39.0-53.0) Mean Corpuscular Volume 86 fL (79-100) Mean Corpuscular Hemoglobin 29 pg (25-35) Mean Corpuscular Hemoglobin Concent 34 g/dL (31-37) Red Cell Distribution Width 14.5 % (11.5-14.5) Platelet Count 213 x10^3/uL (140-400) Neutrophils (%) (Auto) 66 % (31-73) Lymphocytes (%) (Auto) 15 % (24-48) Monocytes (%) (Auto) 15 % (0-9) Eosinophils (%) (Auto) 4 % (0-3) Basophils (%) (Auto) 1 % (0-3) Neutrophils # (Auto) 3.8 x10^3/uL (1.8-7.7) Lymphocytes # (Auto) 0.8 x10^3/uL (1.0-4.8) Monocytes # (Auto) 0.8 x10^3/uL (0.0-1.1) Eosinophils # (Auto) 0.2 x10^3/uL (0.0-0.7) Basophils # (Auto) 0.0 x10^3/uL (0.0-0.2) Sodium Level 137 mmol/L (136-145) Potassium Level 3.9 mmol/L (3.5-5.1) Chloride Level 99 mmol/L (98-107) Carbon Dioxide Level 27 mmol/L (21-32) Anion Gap 11 (6-14) Blood Urea Nitrogen 43 mg/dL (8-26) Creatinine 4.0 mg/dL (0.7-1.3) Estimated GFR (Cockcroft-Gault) 18.0 Glucose Level 167 mg/dL (70-99) Calcium Level 7.5 mg/dL (8.5-10.1) Phosphorus Level 4.5 mg/dL (2.6-4.7) Albumin 1.7 g/dL (3.4-5.0) Medications Current Medications Metoprolol Tartrate (Lopressor) 25 mg BID PO Last administered on 01/15/20at 08:28; Start 01/13/20 at 21:00; Stop 01/15/20 at 13:22; Status DC Acetaminophen (Tylenol) 650 mg PRN Q6HRS PRN PO MILD PAIN / TEMP > 100.3'F Last administered on 01/16/20at 18:13; Start 01/13/20 at 20:15 Amlodipine Besylate (Norvasc) 10 mg DAILY PO Last administered on 01/17/20at 08:29; Start 01/15/20 at 09:00 Furosemide (Lasix) 40 mg 1X ONCE IVP Last administered on 01/15/20at 11:22; Start 01/15/20 at 10:15; Stop 01/15/20 at 10:16; Status DC Potassium Chloride (Klor-Con) 40 meq 1X ONCE PO Last administered on 01/15/20at 11:21; Start 01/15/20 at 10:15; Stop 01/15/20 at 10:16; Status DC Hydralazine HCl (Apresoline) 50 mg BID PO Last administered on 01/17/20at 21:00; Start 01/15/20 at 10:45 Insulin Human Lispro (HumaLOG) 0-7 UNITS TIDWMEALS SQ Last administered on 01/16/20at 17:54; Start 01/15/20 at 12:00 Dextrose (Dextrose 50%-Water Syringe) 12.5 gm PRN Q15MIN PRN IV SEE COMMENTS; Start 01/15/20 at 11:30 Carvedilol (Coreg) 12.5 mg BIDWMEALS PO Last administered on 01/17/20at 08:30; Start 01/15/20 at 17:00 Hydralazine HCl (Apresoline Inj) 10 mg PRN Q4HRS PRN IVP ELEVATED BP, SEE COMMENTS Last administered on 01/16/20at 09:35; Start 01/15/20 at 15:30 Isosorbide Mononitrate (Imdur) 60 mg DAILY PO Last administered on 01/17/20at 08:30; Start 01/16/20 at 10:00 Potassium Chloride (Klor-Con) 40 meq 1X ONCE PO Last administered on 01/16/20at 13:18; Start 01/16/20 at 11:45; Stop 01/16/20 at 11:46; Status DC Atorvastatin Calcium (Lipitor) 10 mg QHS PO Last administered on 01/17/20at 21:00; Start 01/16/20 at 21:00 Levofloxacin/ Dextrose (Levaquin Per Pharmacy) 1 each PRN DAILY PRN MC SEE COMMENTS; Start 01/16/20 at 15:45; Stop 01/17/20 at 11:20; Status DC Levofloxacin/ Dextrose 100 ml @ 100 mls/hr 1X ONCE IV Last administered on 01/16/20at 17:43; Start 01/16/20 at 17:00; Stop 01/16/20 at 17:59; Status DC Levofloxacin/ Dextrose 50 ml @ 50 mls/hr Q48H IV ; Start 01/17/20 at 17:00; Stop 01/17/20 at 11:09; Status DC Vancomycin HCl (Vanco Per Pharmacy) 1 each PRN DAILY PRN MC SEE COMMENTS; Start 01/16/20 at 19:15; Status UNV Linezolid/Dextrose 300 ml @ 300 mls/hr Q12HR IV Last administered on 01/17/20at 21:00; Start 01/16/20 at 20:00 Piperacillin Sod/ Tazobactam Sod 2.25 gm/Sodium Chloride 50 ml @ 100 mls/hr Q8HRS IV Last administered on 01/18/20at 05:54; Start 01/17/20 at 12:00 Lidocaine HCl (Buffered Lidocaine 1%) 3 ml STK-MED ONCE .ROUTE ; Start 01/17/20 at 13:07; Stop 01/17/20 at 13:07; Status DC Lidocaine HCl (Buffered Lidocaine 1%) 6 ml 1X ONCE INJ Last administered on 01/17/20at 13:33; Start 01/17/20 at 13:15; Stop 01/17/20 at 13:16; Status DC Sodium Chloride 1,000 ml @ 1,000 mls/hr Q1H PRN IV hypotension; Start 01/17/20 at 16:51; Stop 01/17/20 at 22:50; Status DC Acetaminophen (Tylenol) 500 mg 1X PRN PRN PO MILD PAIN / TEMP > 100.3'F; Start 01/17/20 at 17:00; Stop 01/18/20 at 16:59 Diphenhydramine HCl (Benadryl) 25 mg 1X PRN PRN IV ITCHING; Start 01/17/20 at 17:00; Stop 01/18/20 at 09:53; Status DC Diphenhydramine HCl (Benadryl) 25 mg 1X PRN PRN IV ITCHING; Start 01/17/20 at 17:00; Stop 01/18/20 at 09:54; Status DC Sodium Chloride 1,000 ml @ 400 mls/hr Q2H30M PRN IV PATENCY; Start 01/17/20 at 16:51; Stop 01/18/20 at 04:50; Status DC Info (PHARMACY MONITORING -- do not chart) 1 each PRN DAILY PRN MC SEE COMMENTS; Start 01/17/20 at 17:00; Stop 01/18/20 at 09:55; Status DC Sodium Chloride 1,000 ml @ 1,000 mls/hr Q1H PRN IV hypotension; Start 01/18/20 at 07:46; Stop 01/18/20 at 13:45 Diphenhydramine HCl (Benadryl) 25 mg 1X PRN PRN IV ITCHING; Start 01/18/20 at 08:00; Stop 01/19/20 at 07:59 Diphenhydramine HCl (Benadryl) 25 mg 1X PRN PRN IV ITCHING; Start 01/18/20 at 08:00; Stop 01/19/20 at 07:59 Sodium Chloride 1,000 ml @ 400 mls/hr Q2H30M PRN IV PATENCY; Start 01/18/20 at 07:46; Stop 01/18/20 at 19:45 Info (PHARMACY MONITORING -- do not chart) 1 each PRN DAILY PRN MC SEE COMMENTS; Start 01/18/20 at 08:00 Active Scripts Active Reported Amlodipine Besylate 10 Mg Tablet 10 Mg PO DAILY Metformin Hcl 1,000 Mg Tablet 1,000 Mg PO BIDWMEALS Vitals/I & O Vital Sign - Last 24 Hours 01/17/20 01/17/20 01/17/20 01/17/20 11:00 15:00 19:00 20:00 Temp 97.5 97.9 97.9 97.5 97.9 97.9 Pulse 73 71 97 Resp 20 18 20 B/P (MAP) 110/78 (89) 141/82 (101) 140/86 (104) Pulse Ox 95 95 95 O2 Delivery Nasal Cannula Nasal Cannula Nasal Cannula Nasal Cannula O2 Flow Rate 3.0 3.0 3.0 3.0 01/17/20 01/17/20 01/18/20 21:00 23:00 03:00 Temp 98.5 97.9 98.5 97.9 Pulse 97 84 81 Resp 18 18 B/P (MAP) 140/86 127/77 (94) 142/79 (100) Pulse Ox 96 96 O2 Delivery Nasal Cannula Nasal Cannula O2 Flow Rate 3.0 3.0 Intake and Output 01/17/20 01/17/20 01/18/20 15:00 23:00 07:00 Intake Total 750 ml 170 ml 0 ml Output Total 900 ml 430 ml 750 ml Balance -150 ml -260 ml -750 ml MEJIA LICONA MD Jan 18, 2020 10:10
--- NOTE | 2020-01-18 11:15 | NUR ---
pt left unit for dialysis at approx 1110.
--- NOTE | 2020-01-18 11:37 | PDOC ---
PULMONARY PROGRESS NOTES Subjective remains on 3 litres fever improved Vitals Vital Signs Date Time Temp Pulse Resp B/P (MAP) Pulse Ox O2 Delivery O2 Flow Rate FiO2 01/18/20 11:00 77 01/18/20 08:00 Nasal Cannula 2.0 01/18/20 07:00 97.1 20 153/96 (115) 97.1 01/18/20 03:00 96 General: Alert, No acute distress Lungs: Other (decrease bs) Cardiovascular: S1 Abdomen: Other (obese) Neuro Exam: Alert Extremities: Other (trace edema) Labs Laboratory Tests Test 01/16/20 13:05 01/16/20 16:23 01/16/20 19:30 01/17/20 04:10 O2 Saturation 88 % (92-99) Arterial Blood pH 7.51 (7.35-7.45) Arterial Blood pCO2 at Patient Temp 26 mmHg (35-46) Arterial Blood pO2 at Patient Temp 53 mmHg (65-108) Arterial Blood HCO3 20 mmol/L (21-28) Arterial Blood Base Excess -2 mmol/L (-3-3) FiO2 2.5 lpm nc Glucose (Fingerstick) 194 mg/dL (70-99) Coronavirus (COVID-19)(PCR) Not detected (NOT DETECT.) White Blood Count 5.9 x10^3/uL (4.0-11.0) Red Blood Count 3.81 x10^6/uL (4.30-5.70) Hemoglobin 10.9 g/dL (13.0-17.5) Hematocrit 32.9 % (39.0-53.0) Mean Corpuscular Volume 86 fL (79-100) Mean Corpuscular Hemoglobin 29 pg (25-35) Mean Corpuscular Hemoglobin Concent 33 g/dL (31-37) Red Cell Distribution Width 14.7 % (11.5-14.5) Platelet Count 219 x10^3/uL (140-400) Neutrophils (%) (Auto) 72 % (31-73) Lymphocytes (%) (Auto) 12 % (24-48) Monocytes (%) (Auto) 14 % (0-9) Eosinophils (%) (Auto) 1 % (0-3) Basophils (%) (Auto) 1 % (0-3) Neutrophils # (Auto) 4.3 x10^3/uL (1.8-7.7) Lymphocytes # (Auto) 0.7 x10^3/uL (1.0-4.8) Monocytes # (Auto) 0.8 x10^3/uL (0.0-1.1) Eosinophils # (Auto) 0.1 x10^3/uL (0.0-0.7) Basophils # (Auto) 0.0 x10^3/uL (0.0-0.2) Sodium Level 137 mmol/L (136-145) Potassium Level 3.7 mmol/L (3.5-5.1) Chloride Level 101 mmol/L (98-107) Carbon Dioxide Level 24 mmol/L (21-32) Anion Gap 12 (6-14) Blood Urea Nitrogen 50 mg/dL (8-26) Creatinine 4.6 mg/dL (0.7-1.3) Estimated GFR (Cockcroft-Gault) 15.3 Glucose Level 152 mg/dL (70-99) Calcium Level 7.8 mg/dL (8.5-10.1) Phosphorus Level 4.2 mg/dL (2.6-4.7) Albumin 1.7 g/dL (3.4-5.0) Hepatitis B Surface Antigen Nonreactive (Nonreactive) Hepatitis B Surface Antibody Nonreactive Hepatitis B Core Total Antibody Nonreactive (Nonreactive) Test 01/17/20 08:26 01/17/20 11:33 01/17/20 21:10 01/18/20 02:30 Glucose (Fingerstick) 127 mg/dL (70-99) 174 mg/dL (70-99) 256 mg/dL (70-99) White Blood Count 5.7 x10^3/uL (4.0-11.0) Red Blood Count 3.89 x10^6/uL (4.30-5.70) Hemoglobin 11.2 g/dL (13.0-17.5) Hematocrit 33.3 % (39.0-53.0) Mean Corpuscular Volume 86 fL (79-100) Mean Corpuscular Hemoglobin 29 pg (25-35) Mean Corpuscular Hemoglobin Concent 34 g/dL (31-37) Red Cell Distribution Width 14.5 % (11.5-14.5) Platelet Count 213 x10^3/uL (140-400) Neutrophils (%) (Auto) 66 % (31-73) Lymphocytes (%) (Auto) 15 % (24-48) Monocytes (%) (Auto) 15 % (0-9) Eosinophils (%) (Auto) 4 % (0-3) Basophils (%) (Auto) 1 % (0-3) Neutrophils # (Auto) 3.8 x10^3/uL (1.8-7.7) Lymphocytes # (Auto) 0.8 x10^3/uL (1.0-4.8) Monocytes # (Auto) 0.8 x10^3/uL (0.0-1.1) Eosinophils # (Auto) 0.2 x10^3/uL (0.0-0.7) Basophils # (Auto) 0.0 x10^3/uL (0.0-0.2) Sodium Level 137 mmol/L (136-145) Potassium Level 3.9 mmol/L (3.5-5.1) Chloride Level 99 mmol/L (98-107) Carbon Dioxide Level 27 mmol/L (21-32) Anion Gap 11 (6-14) Blood Urea Nitrogen 43 mg/dL (8-26) Creatinine 4.0 mg/dL (0.7-1.3) Estimated GFR (Cockcroft-Gault) 18.0 Glucose Level 167 mg/dL (70-99) Calcium Level 7.5 mg/dL (8.5-10.1) Phosphorus Level 4.5 mg/dL (2.6-4.7) Albumin 1.7 g/dL (3.4-5.0) Laboratory Tests Test 01/17/20 21:10 01/18/20 02:30 Glucose (Fingerstick) 256 mg/dL (70-99) White Blood Count 5.7 x10^3/uL (4.0-11.0) Red Blood Count 3.89 x10^6/uL (4.30-5.70) Hemoglobin 11.2 g/dL (13.0-17.5) Hematocrit 33.3 % (39.0-53.0) Mean Corpuscular Volume 86 fL (79-100) Mean Corpuscular Hemoglobin 29 pg (25-35) Mean Corpuscular Hemoglobin Concent 34 g/dL (31-37) Red Cell Distribution Width 14.5 % (11.5-14.5) Platelet Count 213 x10^3/uL (140-400) Neutrophils (%) (Auto) 66 % (31-73) Lymphocytes (%) (Auto) 15 % (24-48) Monocytes (%) (Auto) 15 % (0-9) Eosinophils (%) (Auto) 4 % (0-3) Basophils (%) (Auto) 1 % (0-3) Neutrophils # (Auto) 3.8 x10^3/uL (1.8-7.7) Lymphocytes # (Auto) 0.8 x10^3/uL (1.0-4.8) Monocytes # (Auto) 0.8 x10^3/uL (0.0-1.1) Eosinophils # (Auto) 0.2 x10^3/uL (0.0-0.7) Basophils # (Auto) 0.0 x10^3/uL (0.0-0.2) Sodium Level 137 mmol/L (136-145) Potassium Level 3.9 mmol/L (3.5-5.1) Chloride Level 99 mmol/L (98-107) Carbon Dioxide Level 27 mmol/L (21-32) Anion Gap 11 (6-14) Blood Urea Nitrogen 43 mg/dL (8-26) Creatinine 4.0 mg/dL (0.7-1.3) Estimated GFR (Cockcroft-Gault) 18.0 Glucose Level 167 mg/dL (70-99) Calcium Level 7.5 mg/dL (8.5-10.1) Phosphorus Level 4.5 mg/dL (2.6-4.7) Albumin 1.7 g/dL (3.4-5.0) Medications Active Scripts Medications Dose Route/Sig Max Daily Dose Days Date Category Amlodipine Besylate 10 Mg Tablet 10 Mg PO DAILY 01/13/20 Reported Metformin Hcl 1,000 Mg Tablet 1,000 Mg PO BIDWMEALS 01/13/[address] CHEST IMPRESSION: 1. Asymmetric right lower lobe groundglass opacities and nodular consolidations, suspected to represent infection or aspiration. 2. Trace left pleural effusion. 3. Incompletely characterized right thyroid nodule measuring 3.6 cm could be further evaluated with thyroid ultrasound Electronically signed by: Adriel Lawson MD (01/18/2020 9:50 AM) [id number] Impression . 1. Acute hypoxic respiratory failure secondary to multifactorial etiologies and likely contributed by RLL PNEUMONIA /some acute diastolic heart failure in addition to his morbid obesity. 2. No significant tobacco history. 3. Underlying obstructive sleep apnea. 4. Acute kidney injury on chronic kidney disease. Plan . 1. CT chest reviewed. c/w RLL pneumonia 2. Abx and follow response 3. I will recommend to continue home CPAP. 4. HD per renal 5. right heart once clinically better 6. COVID-19 neg d/w KUSUM ABDUL MD Jan 18, 2020 11:37
--- NOTE | 2020-01-18 11:52 | NUR ---
SS following up with discharge planning. SS received notification from [facility] Admissions with confirmed chair time. Pt scheduled for [address] [address], ; fax [phone], Tuesday, Tuesday, and Tuesday at 1030. Pt to arrive for first chair time on 01/23/2020, at 1000. SS will continue to follow for discharge planning.
--- NOTE | 2020-01-18 12:27 | PDOC ---
Infectious Disease Note Vital Sign Vital Signs Vital Signs Date Time Temp Pulse Resp B/P (MAP) Pulse Ox O2 Delivery O2 Flow Rate FiO2 01/18/20 11:00 77 01/18/20 08:00 Nasal Cannula 2.0 01/18/20 07:00 97.1 20 153/96 (115) 97.1 01/18/20 03:00 96 Physical Exam PHYSICAL EXAM CONSTITUTIONAL: He is sitting upright in bed. He is cooperative. He is in no acute distress. HEENT: Pupils equal and reactive. He has normal conjunctivae. Oral cavity, pharynx is clear. NECK: Supple. Good range of motion. LUNGS: Had some mild crackles on the right. HEART: S1, S2. ABDOMEN: Obese, soft, nontender, nondistended with positive bowel sounds, no guarding. GENITOURINARY: Freitas is in place. EXTREMITIES: No clubbing, cyanosis. He had a trace to 1+ edema. SKIN: Warm without signs of generalized rash. NEUROLOGIC: He is nonfocal, answers questions. He is on nasal cannula oxygen. PSYCHIATRIC: Affect was appropriate. Labs Lab Laboratory Tests Test 01/17/20 21:10 01/18/20 02:30 Glucose (Fingerstick) 256 mg/dL (70-99) White Blood Count 5.7 x10^3/uL (4.0-11.0) Red Blood Count 3.89 x10^6/uL (4.30-5.70) Hemoglobin 11.2 g/dL (13.0-17.5) Hematocrit 33.3 % (39.0-53.0) Mean Corpuscular Volume 86 fL (79-100) Mean Corpuscular Hemoglobin 29 pg (25-35) Mean Corpuscular Hemoglobin Concent 34 g/dL (31-37) Red Cell Distribution Width 14.5 % (11.5-14.5) Platelet Count 213 x10^3/uL (140-400) Neutrophils (%) (Auto) 66 % (31-73) Lymphocytes (%) (Auto) 15 % (24-48) Monocytes (%) (Auto) 15 % (0-9) Eosinophils (%) (Auto) 4 % (0-3) Basophils (%) (Auto) 1 % (0-3) Neutrophils # (Auto) 3.8 x10^3/uL (1.8-7.7) Lymphocytes # (Auto) 0.8 x10^3/uL (1.0-4.8) Monocytes # (Auto) 0.8 x10^3/uL (0.0-1.1) Eosinophils # (Auto) 0.2 x10^3/uL (0.0-0.7) Basophils # (Auto) 0.0 x10^3/uL (0.0-0.2) Sodium Level 137 mmol/L (136-145) Potassium Level 3.9 mmol/L (3.5-5.1) Chloride Level 99 mmol/L (98-107) Carbon Dioxide Level 27 mmol/L (21-32) Anion Gap 11 (6-14) Blood Urea Nitrogen 43 mg/dL (8-26) Creatinine 4.0 mg/dL (0.7-1.3) Estimated GFR (Cockcroft-Gault) 18.0 Glucose Level 167 mg/dL (70-99) Calcium Level 7.5 mg/dL (8.5-10.1) Phosphorus Level 4.5 mg/dL (2.6-4.7) Albumin 1.7 g/dL (3.4-5.0) Micro IMPRESSION: 1. Asymmetric right lower lobe groundglass opacities and nodular consolidations, suspected to represent infection or aspiration. 2. Trace left pleural effusion. 3. Incompletely characterized right thyroid nodule measuring 3.6 cm could be further evaluated with thyroid ultrasound Objective Assessment Fever - better PCN allergy - has tolerated Amoxicillin Acute hypoxic resp failure - COVID - neg WAYNE Morbid Obesity Acute on chronic diastolic heart failure: EF nml. DM HTN urgency Plan Plan of Care D/c Levoflox covered until 01/17 Add Zosyn 01/16 F/u labs and cults strep/legionella antigens/mycoplasma SUSANA WAGGONER MD Jan 18, 2020 12:27
[2020-01-18 14:12] LABS: MYCOPLASMA PATIENT NEGATIVE (NEGATIVE)
[2020-01-18] MEDS: ISOSORBIDE MONONITRATE ER 30 MG TAB.ER.24H PO SCH (14:59)
[2020-01-18] MEDS: amLODIPine BESYLATE 10 MG TABLET PO SCH (14:59)
[2020-01-18 15:01] VITALS: BP 145/84
--- NOTE | 2020-01-18 16:27 | RAD ---
THYROID ULTRASOUND History: Mass. Abnormal CT. Comparison: CT chest without contrast, earlier same day. Technique: Multiple grayscale and color Doppler images of the thyroid gland were obtained. Findings: Measurements in length, AP (height), and transverse (width), respectively, unless otherwise stated. Right thyroid lobe measures 4.5 x 2.7 x 2.6 cm. There is a right thyroid nodule occupying a large portion of the right thyroid lobe. The maximum dimension of the nodule is probably on the order of 3.4 cm. The nodule is characterized as TR3. The isthmus measures 3 mm. The left thyroid lobe measures 3.8 x 1.7 x 1.7 cm. There is a 3 mm cyst in the inferior left thyroid lobe. ACR Thyroid Imaging, Reporting And Data System (TI-RADS): White Paper Of The ACR TI-RADS Committee. Journal of the [employer], volume 14, issue 5, pages 587-595 (November 2016). IMPRESSION: There is a TR3 nodule of the right thyroid lobe. Based on size, nonurgent ultrasound guided FNA is suggested. Electronically signed by: Topher Knott MD (01/18/2020 4:24 PM) [id number]
[2020-01-18 19:05] VITALS: BP 128/83
[2020-01-18] MEDS: ATORVASTATIN CALCIUM 10 MG TABLET. PO SCH (20:20)
[2020-01-18] MEDS: DOXYCYCLINE HYCLATE 100 MG TABLET PO SCH (20:20)
[2020-01-18 23:25] VITALS: BP 130/86
[2020-01-19 03:55] VITALS: BP 137/88
[2020-01-19 05:01] LABS: BASO # 0.1 x10^3/uL (0.0-0.2); BASO % 1 % (0-3); EOS # 0.3 x10^3/uL (0.0-0.7); EOS % 4 % (0-3); HEMATOCRIT 34.3 % (39.0-53.0); HEMOGLOBIN 11.4 g/dL (13.0-17.5); LYMPH # 1.1 x10^3/uL (1.0-4.8); LYMPH % 17 % (24-48); MEAN CORPUSCULAR HEMOGLOBIN 29 pg (25-35); MEAN CORPUSCULAR HGB CONC 33 g/dL (31-37); MEAN CORPUSCULAR VOLUME 87 fL (79-100); MONO # 0.8 x10^3/uL (0.0-1.1); MONO % 12 % (0-9); NEUT # 4.3 x10^3/uL (1.8-7.7); NEUT % 65 % (31-73); PLATELET COUNT 207 x10^3/uL (140-400); RED BLOOD COUNT 3.97 x10^6/uL (4.30-5.70); RED CELL DISTRIBUTION WIDTH 14.4 % (11.5-14.5); WHITE BLOOD COUNT 6.6 x10^3/uL (4.0-11.0)
[2020-01-19] MEDS: PIPERACILLIN/TAZOBACTAM 2.25 GM in IV NORMAL SALINE 50ML 50 ML IV SCH ×3 (05:05→22:23)
--- NOTE | 2020-01-19 05:13 | NUR ---
Irrigated matthews, some clots were present. Bladder scanned, no residual found (o mls)
[2020-01-19 05:29] LABS: ALBUMIN 1.8 g/dL (3.4-5.0); CALCIUM 7.7 mg/dL (8.5-10.1); CREATININE 4.4 mg/dL (0.7-1.3); GFR 16.1; PHOSPHORUS 4.3 mg/dL (2.6-4.7); POTASSIUM 3.8 mmol/L (3.5-5.1)
--- NOTE | 2020-01-19 06:45 | PDOC ---
PULMONARY PROGRESS NOTES Subjective denies sob, on 02 2 lpm prn, has occ cough, no pain, had hd 01/16-01/17, not making much urine Vitals Vital Signs Date Time Temp Pulse Resp B/P (MAP) Pulse Ox O2 Delivery O2 Flow Rate FiO2 01/19/20 03:55 97.8 71 21 137/88 (104) 93 Room Air 97.8 01/18/20 23:25 2.0 General: Alert, No acute distress Lungs: Crackles, Other (decrease bs) Cardiovascular: S1, S2 Abdomen: Soft, Other (obese) Neuro Exam: Alert Extremities: Other (trace edema) Skin: Warm Labs Laboratory Tests Test 01/17/20 08:26 01/17/20 11:33 01/17/20 21:10 01/18/20 02:30 Glucose (Fingerstick) 127 mg/dL (70-99) 174 mg/dL (70-99) 256 mg/dL (70-99) White Blood Count 5.7 x10^3/uL (4.0-11.0) Red Blood Count 3.89 x10^6/uL (4.30-5.70) Hemoglobin 11.2 g/dL (13.0-17.5) Hematocrit 33.3 % (39.0-53.0) Mean Corpuscular Volume 86 fL (79-100) Mean Corpuscular Hemoglobin 29 pg (25-35) Mean Corpuscular Hemoglobin Concent 34 g/dL (31-37) Red Cell Distribution Width 14.5 % (11.5-14.5) Platelet Count 213 x10^3/uL (140-400) Neutrophils (%) (Auto) 66 % (31-73) Lymphocytes (%) (Auto) 15 % (24-48) Monocytes (%) (Auto) 15 % (0-9) Eosinophils (%) (Auto) 4 % (0-3) Basophils (%) (Auto) 1 % (0-3) Neutrophils # (Auto) 3.8 x10^3/uL (1.8-7.7) Lymphocytes # (Auto) 0.8 x10^3/uL (1.0-4.8) Monocytes # (Auto) 0.8 x10^3/uL (0.0-1.1) Eosinophils # (Auto) 0.2 x10^3/uL (0.0-0.7) Basophils # (Auto) 0.0 x10^3/uL (0.0-0.2) Sodium Level 137 mmol/L (136-145) Potassium Level 3.9 mmol/L (3.5-5.1) Chloride Level 99 mmol/L (98-107) Carbon Dioxide Level 27 mmol/L (21-32) Anion Gap 11 (6-14) Blood Urea Nitrogen 43 mg/dL (8-26) Creatinine 4.0 mg/dL (0.7-1.3) Estimated GFR (Cockcroft-Gault) 18.0 Glucose Level 167 mg/dL (70-99) Calcium Level 7.5 mg/dL (8.5-10.1) Phosphorus Level 4.5 mg/dL (2.6-4.7) Albumin 1.7 g/dL (3.4-5.0) Mycoplasma Serology (LAB) Negative (NEGATIVE) Test 01/18/20 16:35 01/18/20 21:16 01/19/20 04:30 Glucose (Fingerstick) 193 mg/dL (70-99) 217 mg/dL (70-99) White Blood Count 6.6 x10^3/uL (4.0-11.0) Red Blood Count 3.97 x10^6/uL (4.30-5.70) Hemoglobin 11.4 g/dL (13.0-17.5) Hematocrit 34.3 % (39.0-53.0) Mean Corpuscular Volume 87 fL (79-100) Mean Corpuscular Hemoglobin 29 pg (25-35) Mean Corpuscular Hemoglobin Concent 33 g/dL (31-37) Red Cell Distribution Width 14.4 % (11.5-14.5) Platelet Count 207 x10^3/uL (140-400) Neutrophils (%) (Auto) 65 % (31-73) Lymphocytes (%) (Auto) 17 % (24-48) Monocytes (%) (Auto) 12 % (0-9) Eosinophils (%) (Auto) 4 % (0-3) Basophils (%) (Auto) 1 % (0-3) Neutrophils # (Auto) 4.3 x10^3/uL (1.8-7.7) Lymphocytes # (Auto) 1.1 x10^3/uL (1.0-4.8) Monocytes # (Auto) 0.8 x10^3/uL (0.0-1.1) Eosinophils # (Auto) 0.3 x10^3/uL (0.0-0.7) Basophils # (Auto) 0.1 x10^3/uL (0.0-0.2) Sodium Level 138 mmol/L (136-145) Potassium Level 3.8 mmol/L (3.5-5.1) Chloride Level 99 mmol/L (98-107) Carbon Dioxide Level 30 mmol/L (21-32) Anion Gap 9 (6-14) Blood Urea Nitrogen 36 mg/dL (8-26) Creatinine 4.4 mg/dL (0.7-1.3) Estimated GFR (Cockcroft-Gault) 16.1 Glucose Level 160 mg/dL (70-99) Calcium Level 7.7 mg/dL (8.5-10.1) Phosphorus Level 4.3 mg/dL (2.6-4.7) Albumin 1.8 g/dL (3.4-5.0) Laboratory Tests Test 01/18/20 16:35 01/18/20 21:16 01/19/20 04:30 Glucose (Fingerstick) 193 mg/dL (70-99) 217 mg/dL (70-99) White Blood Count 6.6 x10^3/uL (4.0-11.0) Red Blood Count 3.97 x10^6/uL (4.30-5.70) Hemoglobin 11.4 g/dL (13.0-17.5) Hematocrit 34.3 % (39.0-53.0) Mean Corpuscular Volume 87 fL (79-100) Mean Corpuscular Hemoglobin 29 pg (25-35) Mean Corpuscular Hemoglobin Concent 33 g/dL (31-37) Red Cell Distribution Width 14.4 % (11.5-14.5) Platelet Count 207 x10^3/uL (140-400) Neutrophils (%) (Auto) 65 % (31-73) Lymphocytes (%) (Auto) 17 % (24-48) Monocytes (%) (Auto) 12 % (0-9) Eosinophils (%) (Auto) 4 % (0-3) Basophils (%) (Auto) 1 % (0-3) Neutrophils # (Auto) 4.3 x10^3/uL (1.8-7.7) Lymphocytes # (Auto) 1.1 x10^3/uL (1.0-4.8) Monocytes # (Auto) 0.8 x10^3/uL (0.0-1.1) Eosinophils # (Auto) 0.3 x10^3/uL (0.0-0.7) Basophils # (Auto) 0.1 x10^3/uL (0.0-0.2) Sodium Level 138 mmol/L (136-145) Potassium Level 3.8 mmol/L (3.5-5.1) Chloride Level 99 mmol/L (98-107) Carbon Dioxide Level 30 mmol/L (21-32) Anion Gap 9 (6-14) Blood Urea Nitrogen 36 mg/dL (8-26) Creatinine 4.4 mg/dL (0.7-1.3) Estimated GFR (Cockcroft-Gault) 16.1 Glucose Level 160 mg/dL (70-99) Calcium Level 7.7 mg/dL (8.5-10.1) Phosphorus Level 4.3 mg/dL (2.6-4.7) Albumin 1.8 g/dL (3.4-5.0) Medications Active Scripts Medications Dose Route/Sig Max Daily Dose Days Date Category Amlodipine Besylate 10 Mg Tablet 10 Mg PO DAILY 01/13/20 Reported Metformin Hcl 1,000 Mg Tablet 1,000 Mg PO BIDWMEALS 01/13/[address] CHEST IMPRESSION: 1. Asymmetric right lower lobe groundglass opacities and nodular consolidations, suspected to represent infection or aspiration. 2. Trace left pleural effusion. 3. Incompletely characterized right thyroid nodule measuring 3.6 cm could be further evaluated with thyroid ultrasound Electronically signed by: Adriel Lawson MD (01/18/2020 9:50 AM) [id number] Impression . 1. Acute hypoxic respiratory failure secondary to multifactorial etiologies and likely contributed by RLL PNEUMONIA /some acute diastolic heart failure in addition to his morbid obesity. 2. No significant tobacco history. 3. Underlying obstructive sleep apnea. 4. Acute kidney injury on chronic kidney disease. Plan . 1. CT chest reviewed. c/w RLL pneumonia 2. Abx and follow response 3. I will recommend to continue home CPAP. the importance of wayne tx discussed 4. HD per renal 5. COVID-19 neg d/w RN, pt DEIDRA OAKES MD Jan 19, 2020 06:45
[2020-01-19 07:00] VITALS: BP 151/91
[2020-01-19] MEDS: CARVEDILOL 12.5 MG TABLET. PO SCH ×3 (08:00→17:17)
[2020-01-19] MEDS: INSULIN LISPRO 300 UNITS/3 ML VIAL. SQ SCH ×3 (08:00→17:00)
[2020-01-19] MEDS ORDERED: IV NORMAL SALINE 1000ML BAG 1,000 ML IV PRN ×2 (08:06)
[2020-01-19] MEDS ORDERED: 0.9 % SODIUM CHLORIDE 10 ML DISP.SYRIN. IV PRN ×2 (08:15)
[2020-01-19] MEDS ORDERED: ALBUMIN HUMAN 25% 200 ML IV PRN (08:15)
[2020-01-19] MEDS ORDERED: DIALYSIS PATIENT. MC PRN (08:15)
[2020-01-19] MEDS ORDERED: diphenhydrAMINE 50 MG/ML VIAL IV PRN ×2 (08:15)
[2020-01-19] MEDS ORDERED: ACETAMINOPHEN 500 MG TABLET PO PRN (08:15)
--- NOTE | 2020-01-19 09:04 | NUR ---
Off of unit at dialysis.
--- NOTE | 2020-01-19 09:59 | PDOC ---
Infectious Disease Note Subjective Subjective Comfortable Denies F/C/SOA/N/V/D ROS ROS as mentioned above Vital Sign Vital Signs Vital Signs Date Time Temp Pulse Resp B/P (MAP) Pulse Ox O2 Delivery O2 Flow Rate FiO2 01/19/20 07:00 97.7 82 22 151/91 (111) 91 Room Air 97.7 01/18/20 23:25 2.0 Physical Exam PHYSICAL EXAM GENERAL: Propped up in bed, alert and dialyzing HEENT: Pupils equal and reactive. He has normal conjunctivae. Oral cavity, pharynx is clear. NECK: Supple. Good range of motion. LUNGS: Clear anteriorly, nonlabored HEART: S1, S2. regular ABDOMEN: Obese, soft, nontender, with positive bowel sounds, no guarding. : [place] EXTREMITIES: No clubbing, cyanosis. Trace edema. SKIN: Warm without signs of generalized rash. NEUROLOGIC: Alert, nonfocal, answers questions. Temp HDC (01/16) without signs of complications PIV Labs Lab Laboratory Tests Test 01/18/20 16:35 01/18/20 21:16 01/19/20 04:30 01/19/20 07:02 Glucose (Fingerstick) 193 mg/dL (70-99) 217 mg/dL (70-99) 154 mg/dL (70-99) White Blood Count 6.6 x10^3/uL (4.0-11.0) Red Blood Count 3.97 x10^6/uL (4.30-5.70) Hemoglobin 11.4 g/dL (13.0-17.5) Hematocrit 34.3 % (39.0-53.0) Mean Corpuscular Volume 87 fL (79-100) Mean Corpuscular Hemoglobin 29 pg (25-35) Mean Corpuscular Hemoglobin Concent 33 g/dL (31-37) Red Cell Distribution Width 14.4 % (11.5-14.5) Platelet Count 207 x10^3/uL (140-400) Neutrophils (%) (Auto) 65 % (31-73) Lymphocytes (%) (Auto) 17 % (24-48) Monocytes (%) (Auto) 12 % (0-9) Eosinophils (%) (Auto) 4 % (0-3) Basophils (%) (Auto) 1 % (0-3) Neutrophils # (Auto) 4.3 x10^3/uL (1.8-7.7) Lymphocytes # (Auto) 1.1 x10^3/uL (1.0-4.8) Monocytes # (Auto) 0.8 x10^3/uL (0.0-1.1) Eosinophils # (Auto) 0.3 x10^3/uL (0.0-0.7) Basophils # (Auto) 0.1 x10^3/uL (0.0-0.2) Sodium Level 138 mmol/L (136-145) Potassium Level 3.8 mmol/L (3.5-5.1) Chloride Level 99 mmol/L (98-107) Carbon Dioxide Level 30 mmol/L (21-32) Anion Gap 9 (6-14) Blood Urea Nitrogen 36 mg/dL (8-26) Creatinine 4.4 mg/dL (0.7-1.3) Estimated GFR (Cockcroft-Gault) 16.1 Glucose Level 160 mg/dL (70-99) Calcium Level 7.7 mg/dL (8.5-10.1) Phosphorus Level 4.3 mg/dL (2.6-4.7) Albumin 1.8 g/dL (3.4-5.0) CT Chest IMPRESSION: 1. Asymmetric right lower lobe groundglass opacities and nodular consolidations, suspected to represent infection or aspiration. 2. Trace left pleural effusion. 3. Incompletely characterized right thyroid nodule measuring 3.6 cm could be further evaluated with thyroid ultrasound Objective Assessment Fever - better PCN allergy - has tolerated Amoxicillin Acute hypoxic resp failure - COVID/mycoplasma - neg WAYNE requiring HD Morbid Obesity Acute on chronic diastolic heart failure: EF nml. DM HTN urgency Plan Plan of Care Continue Zosyn/Zyvox/doxy F/u labs f/u strep/legionella antigens Attending Co-Sign The patient was seen and interviewed as well as examined at the bedside. The chart was reviewed. The case was discussed. Agree with the plan of care. BROOKLYNN WILLIS APRN Jan 19, 2020 09:59 INES ACOSTA MD Jan 19, 2020 12:09
--- NOTE | 2020-01-19 10:05 | PDOC ---
PROGRESS NOTES Chief Complaint Chief Complaint IMPRESSION Acute on chronic systolic and diastolic heart failure RLL PNEUMONIA /some acute diastolic heart failure in addition to his morbid Severe edema Hyponatremia Severe renal failure Severe noncompliance, diabetes, hypertension, congestive heart failure, rotator cuff surgery, thumb surgery, leg surgery after an infection in his leg. Incompletely characterized right thyroid nodule measuring 3.6 cm could be fur ther evaluated with thyroid ultrasound History of Present Illness History of Present Illness 01/18/2020 Patient seen and examined ruling out COVID-19 Chart reviewed Discussed with RN THYROID SONO 01/16/2020 Patient seen and examined Pulmonary harris he seems to be breathing better but his creatinine is going up to 4.1 I calculated an estimated GFR at around 28 His friend is present Chart reviewed Discussed with RN 01/15/2020 Patient seen and examined We have now placed a Freitas to bedside drainage as he did have 318 cc of post void residual Creatinine is down to 3.8 from 3.9 His daughter is at the bedside and we discussed the case with her Discussed with RN Chart reviewed We are trying Lasix today cautiously His EF was surprisingly normal at 55% 01/14/2020 Patient seen and examined He is still edematous and short of breath Family present Discussed with RN We are going to check a post void residual and place a Freitas if necessary Chart reviewed Vitals Vitals Vital Signs Date Time Temp Pulse Resp B/P (MAP) Pulse Ox O2 Delivery O2 Flow Rate FiO2 01/19/20 07:00 97.7 82 22 151/91 (111) 91 Room Air 97.7 01/18/20 23:25 2.0 Physical Exam Physical Exam GENERAL: Propped up in bed, alert and dialyzing HEENT: Pupils equal and reactive. He has normal conjunctivae. Oral cavity, pharynx is clear. NECK: Supple. Good range of motion. LUNGS: Clear anteriorly, nonlabored HEART: S1, S2. regular ABDOMEN: Obese, soft, nontender, with positive bowel sounds, no guarding. : Freitas EXTREMITIES: No clubbing, cyanosis. Trace edema. SKIN: Warm without signs of generalized rash. NEUROLOGIC: Alert, nonfocal, answers questions. Temp HDC (01/16) without signs of complications PIV General: Alert, mild distress Heart: Regular rate Lungs: Other (decrease bs) Abdomen: Normal bowel sounds, Other (Distended) Extremities: Other Skin: No rashes, No breakdown Labs LABS Laboratory Tests Test 01/18/20 16:35 01/18/20 21:16 01/19/20 04:30 01/19/20 07:02 Glucose (Fingerstick) 193 mg/dL (70-99) 217 mg/dL (70-99) 154 mg/dL (70-99) White Blood Count 6.6 x10^3/uL (4.0-11.0) Red Blood Count 3.97 x10^6/uL (4.30-5.70) Hemoglobin 11.4 g/dL (13.0-17.5) Hematocrit 34.3 % (39.0-53.0) Mean Corpuscular Volume 87 fL (79-100) Mean Corpuscular Hemoglobin 29 pg (25-35) Mean Corpuscular Hemoglobin Concent 33 g/dL (31-37) Red Cell Distribution Width 14.4 % (11.5-14.5) Platelet Count 207 x10^3/uL (140-400) Neutrophils (%) (Auto) 65 % (31-73) Lymphocytes (%) (Auto) 17 % (24-48) Monocytes (%) (Auto) 12 % (0-9) Eosinophils (%) (Auto) 4 % (0-3) Basophils (%) (Auto) 1 % (0-3) Neutrophils # (Auto) 4.3 x10^3/uL (1.8-7.7) Lymphocytes # (Auto) 1.1 x10^3/uL (1.0-4.8) Monocytes # (Auto) 0.8 x10^3/uL (0.0-1.1) Eosinophils # (Auto) 0.3 x10^3/uL (0.0-0.7) Basophils # (Auto) 0.1 x10^3/uL (0.0-0.2) Sodium Level 138 mmol/L (136-145) Potassium Level 3.8 mmol/L (3.5-5.1) Chloride Level 99 mmol/L (98-107) Carbon Dioxide Level 30 mmol/L (21-32) Anion Gap 9 (6-14) Blood Urea Nitrogen 36 mg/dL (8-26) Creatinine 4.4 mg/dL (0.7-1.3) Estimated GFR (Cockcroft-Gault) 16.1 Glucose Level 160 mg/dL (70-99) Calcium Level 7.7 mg/dL (8.5-10.1) Phosphorus Level 4.3 mg/dL (2.6-4.7) Albumin 1.8 g/dL (3.4-5.0) Assessment and Plan Assessmemt and Plan Problems Medical Problems: (1) Bilateral lower extremity edema Status: Acute (2) CHF (congestive heart failure) Status: Acute (3) CRF (chronic renal failure) Status: Acute Comment Review of Relevant I have reviewed the following items reji (where applicable) has been applied. Labs Laboratory Tests Test 01/17/20 11:33 01/17/20 21:10 01/18/20 02:30 01/18/20 16:35 Glucose (Fingerstick) 174 mg/dL (70-99) 256 mg/dL (70-99) 193 mg/dL (70-99) White Blood Count 5.7 x10^3/uL (4.0-11.0) Red Blood Count 3.89 x10^6/uL (4.30-5.70) Hemoglobin 11.2 g/dL (13.0-17.5) Hematocrit 33.3 % (39.0-53.0) Mean Corpuscular Volume 86 fL (79-100) Mean Corpuscular Hemoglobin 29 pg (25-35) Mean Corpuscular Hemoglobin Concent 34 g/dL (31-37) Red Cell Distribution Width 14.5 % (11.5-14.5) Platelet Count 213 x10^3/uL (140-400) Neutrophils (%) (Auto) 66 % (31-73) Lymphocytes (%) (Auto) 15 % (24-48) Monocytes (%) (Auto) 15 % (0-9) Eosinophils (%) (Auto) 4 % (0-3) Basophils (%) (Auto) 1 % (0-3) Neutrophils # (Auto) 3.8 x10^3/uL (1.8-7.7) Lymphocytes # (Auto) 0.8 x10^3/uL (1.0-4.8) Monocytes # (Auto) 0.8 x10^3/uL (0.0-1.1) Eosinophils # (Auto) 0.2 x10^3/uL (0.0-0.7) Basophils # (Auto) 0.0 x10^3/uL (0.0-0.2) Sodium Level 137 mmol/L (136-145) Potassium Level 3.9 mmol/L (3.5-5.1) Chloride Level 99 mmol/L (98-107) Carbon Dioxide Level 27 mmol/L (21-32) Anion Gap 11 (6-14) Blood Urea Nitrogen 43 mg/dL (8-26) Creatinine 4.0 mg/dL (0.7-1.3) Estimated GFR (Cockcroft-Gault) 18.0 Glucose Level 167 mg/dL (70-99) Calcium Level 7.5 mg/dL (8.5-10.1) Phosphorus Level 4.5 mg/dL (2.6-4.7) Albumin 1.7 g/dL (3.4-5.0) Mycoplasma Serology (LAB) Negative (NEGATIVE) Test 01/18/20 21:16 01/19/20 04:30 01/19/20 07:02 Glucose (Fingerstick) 217 mg/dL (70-99) 154 mg/dL (70-99) White Blood Count 6.6 x10^3/uL (4.0-11.0) Red Blood Count 3.97 x10^6/uL (4.30-5.70) Hemoglobin 11.4 g/dL (13.0-17.5) Hematocrit 34.3 % (39.0-53.0) Mean Corpuscular Volume 87 fL (79-100) Mean Corpuscular Hemoglobin 29 pg (25-35) Mean Corpuscular Hemoglobin Concent 33 g/dL (31-37) Red Cell Distribution Width 14.4 % (11.5-14.5) Platelet Count 207 x10^3/uL (140-400) Neutrophils (%) (Auto) 65 % (31-73) Lymphocytes (%) (Auto) 17 % (24-48) Monocytes (%) (Auto) 12 % (0-9) Eosinophils (%) (Auto) 4 % (0-3) Basophils (%) (Auto) 1 % (0-3) Neutrophils # (Auto) 4.3 x10^3/uL (1.8-7.7) Lymphocytes # (Auto) 1.1 x10^3/uL (1.0-4.8) Monocytes # (Auto) 0.8 x10^3/uL (0.0-1.1) Eosinophils # (Auto) 0.3 x10^3/uL (0.0-0.7) Basophils # (Auto) 0.1 x10^3/uL (0.0-0.2) Sodium Level 138 mmol/L (136-145) Potassium Level 3.8 mmol/L (3.5-5.1) Chloride Level 99 mmol/L (98-107) Carbon Dioxide Level 30 mmol/L (21-32) Anion Gap 9 (6-14) Blood Urea Nitrogen 36 mg/dL (8-26) Creatinine 4.4 mg/dL (0.7-1.3) Estimated GFR (Cockcroft-Gault) 16.1 Glucose Level 160 mg/dL (70-99) Calcium Level 7.7 mg/dL (8.5-10.1) Phosphorus Level 4.3 mg/dL (2.6-4.7) Albumin 1.8 g/dL (3.4-5.0) Laboratory Tests Test 01/18/20 16:35 01/18/20 21:16 01/19/20 04:30 01/19/20 07:02 Glucose (Fingerstick) 193 mg/dL (70-99) 217 mg/dL (70-99) 154 mg/dL (70-99) White Blood Count 6.6 x10^3/uL (4.0-11.0) Red Blood Count 3.97 x10^6/uL (4.30-5.70) Hemoglobin 11.4 g/dL (13.0-17.5) Hematocrit 34.3 % (39.0-53.0) Mean Corpuscular Volume 87 fL (79-100) Mean Corpuscular Hemoglobin 29 pg (25-35) Mean Corpuscular Hemoglobin Concent 33 g/dL (31-37) Red Cell Distribution Width 14.4 % (11.5-14.5) Platelet Count 207 x10^3/uL (140-400) Neutrophils (%) (Auto) 65 % (31-73) Lymphocytes (%) (Auto) 17 % (24-48) Monocytes (%) (Auto) 12 % (0-9) Eosinophils (%) (Auto) 4 % (0-3) Basophils (%) (Auto) 1 % (0-3) Neutrophils # (Auto) 4.3 x10^3/uL (1.8-7.7) Lymphocytes # (Auto) 1.1 x10^3/uL (1.0-4.8) Monocytes # (Auto) 0.8 x10^3/uL (0.0-1.1) Eosinophils # (Auto) 0.3 x10^3/uL (0.0-0.7) Basophils # (Auto) 0.1 x10^3/uL (0.0-0.2) Sodium Level 138 mmol/L (136-145) Potassium Level 3.8 mmol/L (3.5-5.1) Chloride Level 99 mmol/L (98-107) Carbon Dioxide Level 30 mmol/L (21-32) Anion Gap 9 (6-14) Blood Urea Nitrogen 36 mg/dL (8-26) Creatinine 4.4 mg/dL (0.7-1.3) Estimated GFR (Cockcroft-Gault) 16.1 Glucose Level 160 mg/dL (70-99) Calcium Level 7.7 mg/dL (8.5-10.1) Phosphorus Level 4.3 mg/dL (2.6-4.7) Albumin 1.8 g/dL (3.4-5.0) Medications Current Medications Metoprolol Tartrate (Lopressor) 25 mg BID PO Last administered on 01/15/20at 08:28; Start 01/13/20 at 21:00; Stop 01/15/20 at 13:22; Status DC Acetaminophen (Tylenol) 650 mg PRN Q6HRS PRN PO MILD PAIN / TEMP > 100.3'F Last administered on 01/16/20at 18:13; Start 01/13/20 at 20:15 Amlodipine Besylate (Norvasc) 10 mg DAILY PO Last administered on 01/18/20at 14:59; Start 01/15/20 at 09:00 Furosemide (Lasix) 40 mg 1X ONCE IVP Last administered on 01/15/20at 11:22; Start 01/15/20 at 10:15; Stop 01/15/20 at 10:16; Status DC Potassium Chloride (Klor-Con) 40 meq 1X ONCE PO Last administered on 01/15/20at 11:21; Start 01/15/20 at 10:15; Stop 01/15/20 at 10:16; Status DC Hydralazine HCl (Apresoline) 50 mg BID PO Last administered on 01/18/20at 20:20; Start 01/15/20 at 10:45 Insulin Human Lispro (HumaLOG) 0-7 UNITS TIDWMEALS SQ Last administered on 01/18/20at 16:46; Start 01/15/20 at 12:00 Dextrose (Dextrose 50%-Water Syringe) 12.5 gm PRN Q15MIN PRN IV SEE COMMENTS; Start 01/15/20 at 11:30 Carvedilol (Coreg) 12.5 mg BIDWMEALS PO Last administered on 01/18/20at 16:37; Start 01/15/20 at 17:00 Hydralazine HCl (Apresoline Inj) 10 mg PRN Q4HRS PRN IVP ELEVATED BP, SEE COMMENTS Last administered on 01/16/20at 09:35; Start 01/15/20 at 15:30 Isosorbide Mononitrate (Imdur) 60 mg DAILY PO Last administered on 01/18/20at 14:59; Start 01/16/20 at 10:00 Potassium Chloride (Klor-Con) 40 meq 1X ONCE PO Last administered on 01/16/20at 13:18; Start 01/16/20 at 11:45; Stop 01/16/20 at 11:46; Status DC Atorvastatin Calcium (Lipitor) 10 mg QHS PO Last administered on 01/18/20at 20:20; Start 01/16/20 at 21:00 Levofloxacin/ Dextrose (Levaquin Per Pharmacy) 1 each PRN DAILY PRN MC SEE COMMENTS; Start 01/16/20 at 15:45; Stop 01/17/20 at 11:20; Status DC Levofloxacin/ Dextrose 100 ml @ 100 mls/hr 1X ONCE IV Last administered on 01/16/20at 17:43; Start 01/16/20 at 17:00; Stop 01/16/20 at 17:59; Status DC Levofloxacin/ Dextrose 50 ml @ 50 mls/hr Q48H IV ; Start 01/17/20 at 17:00; Stop 01/17/20 at 11:09; Status DC Vancomycin HCl (Vanco Per Pharmacy) 1 each PRN DAILY PRN MC SEE COMMENTS; Start 01/16/20 at 19:15; Status UNV Linezolid/Dextrose 300 ml @ 300 mls/hr Q12HR IV Last administered on 01/18/20at 20:18; Start 01/16/20 at 20:00 Piperacillin Sod/ Tazobactam Sod 2.25 gm/Sodium Chloride 50 ml @ 100 mls/hr Q8HRS IV Last administered on 01/19/20at 05:05; Start 01/17/20 at 12:00 Lidocaine HCl (Buffered Lidocaine 1%) 3 ml STK-MED ONCE .ROUTE ; Start 01/17/20 at 13:07; Stop 01/17/20 at 13:07; Status DC Lidocaine HCl (Buffered Lidocaine 1%) 6 ml 1X ONCE INJ Last administered on 01/17/20at 13:33; Start 01/17/20 at 13:15; Stop 01/17/20 at 13:16; Status DC Sodium Chloride 1,000 ml @ 1,000 mls/hr Q1H PRN IV hypotension; Start 01/17/20 at 16:51; Stop 01/17/20 at 22:50; Status DC Acetaminophen (Tylenol) 500 mg 1X PRN PRN PO MILD PAIN / TEMP > 100.3'F; Start 01/17/20 at 17:00; Stop 01/18/20 at 16:59; Status DC Diphenhydramine HCl (Benadryl) 25 mg 1X PRN PRN IV ITCHING; Start 01/17/20 at 17:00; Stop 01/18/20 at 09:53; Status DC Diphenhydramine HCl (Benadryl) 25 mg 1X PRN PRN IV ITCHING; Start 01/17/20 at 17:00; Stop 01/18/20 at 09:54; Status DC Sodium Chloride 1,000 ml @ 400 mls/hr Q2H30M PRN IV PATENCY; Start 01/17/20 at 16:51; Stop 01/18/20 at 04:50; Status DC Info (PHARMACY MONITORING -- do not chart) 1 each PRN DAILY PRN MC SEE COMMENTS; Start 01/17/20 at 17:00; Stop 01/18/20 at 09:55; Status DC Sodium Chloride 1,000 ml @ 1,000 mls/hr Q1H PRN IV hypotension; Start 01/18/20 at 07:46; Stop 01/18/20 at 13:45; Status DC Diphenhydramine HCl (Benadryl) 25 mg 1X PRN PRN IV ITCHING; Start 01/18/20 at 08:00; Stop 01/19/20 at 07:59; Status DC Diphenhydramine HCl (Benadryl) 25 mg 1X PRN PRN IV ITCHING; Start 01/18/20 at 08:00; Stop 01/19/20 at 07:59; Status DC Sodium Chloride 1,000 ml @ 400 mls/hr Q2H30M PRN IV PATENCY; Start 01/18/20 at 07:46; Stop 01/18/20 at 19:45; Status DC Info (PHARMACY MONITORING -- do not chart) 1 each PRN DAILY PRN MC SEE COMMENTS; Start 01/18/20 at 08:00 Doxycycline Hyclate (Vibra-Tab) 100 mg BID PO Last administered on 01/18/20at 20:20; Start 01/18/20 at 21:00 Sodium Chloride 1,000 ml @ 1,000 mls/hr Q1H PRN IV hypotension; Start 01/19/20 at 08:06; Stop 01/19/20 at 14:05 Albumin Human 200 ml @ 200 mls/hr 1X PRN PRN IV Hypotension; Start 01/19/20 at 08:15; Stop 01/19/20 at 14:14 Acetaminophen (Tylenol) 500 mg 1X PRN PRN PO MILD PAIN / TEMP > 100.3'F; Start 01/19/20 at 08:15; Stop 01/20/20 at 08:14 Diphenhydramine HCl (Benadryl) 25 mg 1X PRN PRN IV ITCHING; Start 01/19/20 at 08:15; Stop 01/20/20 at 08:14 Diphenhydramine HCl (Benadryl) 25 mg 1X PRN PRN IV ITCHING; Start 01/19/20 at 08:15; Stop 01/20/20 at 08:14 Sodium Chloride (Normal Saline Flush) 10 ml 1X PRN PRN IV AP 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; Start 01/19/20 at 08:15; Stop 01/20/20 at 08:14 Sodium Chloride (Normal Saline Flush) 10 ml 1X PRN PRN IV 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; Start 01/19/20 at 08:15; Stop 01/20/20 at 08:14 Sodium Chloride 1,000 ml @ 400 mls/hr Q2H30M PRN IV PATENCY; Start 01/19/20 at 08:06; Stop 01/19/20 at 20:05 Info (PHARMACY MONITORING -- do not chart) 1 each PRN DAILY PRN MC SEE COMMENTS; Start 01/19/20 at 08:15; Stop 01/19/20 at 08:14; Status DC Active Scripts Active Reported Amlodipine Besylate 10 Mg Tablet 10 Mg PO DAILY Metformin Hcl 1,000 Mg Tablet 1,000 Mg PO BIDWMEALS Vitals/I & O Vital Sign - Last 24 Hours 01/18/20 01/18/20 01/18/20 01/18/20 11:00 14:58 14:59 14:59 Pulse 77 87 87 87 B/P (MAP) 145/84 145/84 145/84 01/18/20 01/18/20 01/18/20 01/18/20 15:01 16:37 19:05 20:00 Temp 98.2 98.5 98.2 98.5 Pulse 87 87 92 Resp 16 21 B/P (MAP) 145/84 (104) 145/84 128/83 (98) Pulse Ox 98 91 O2 Delivery Nasal Cannula Nasal Cannula Nasal Cannula O2 Flow Rate 2.0 2.0 2.0 01/18/20 01/18/20 01/19/20 01/19/20 20:20 23:25 03:55 07:00 Temp 98.1 97.8 97.7 98.1 97.8 97.7 Pulse 92 76 71 82 Resp 21 21 22 B/P (MAP) 128/83 130/86 (101) 137/88 (104) 151/91 (111) Pulse Ox 93 93 91 O2 Delivery Nasal Cannula Room Air Room Air O2 Flow Rate 2.0 Intake and Output 01/18/20 01/18/20 01/19/20 15:00 23:00 07:00 Intake Total 180 ml 150 ml Output Total 1300 ml 100 ml Balance -1120 ml 50 ml MEJIA LICONA MD Jan 19, 2020 10:05
--- NOTE | 2020-01-19 10:20 | PDOC ---
PROGRESS NOTES Subjective Subjective Denied any chest pain or shortness of breath Objective Objective Vital Signs Date Time Temp Pulse Resp B/P (MAP) Pulse Ox O2 Delivery O2 Flow Rate FiO2 01/19/20 07:00 97.7 82 22 151/91 (111) 91 Room Air 97.7 01/18/20 23:25 2.0 Intake and Output 01/19/20 07:00 Intake Total 330 ml Output Total 1400 ml Balance -1070 ml Intake Oral 330 ml Output Urine Total 1400 ml Physical Exam Abdomen: Normal bowel sounds, Other (Distended) Heart: Regular rate Extremities: Other General: Alert, No acute distress, mild distress Lungs: Other (Decreased air entry bases) Neck: Supple Skin: No rashes, No breakdown Assessment Assessment 1. Acute on chronic diastolic heart failure: EF nml. SOA much better post HD. 2. Severe WAYNE on CKD: HD per nephrology team 3. HTN urgency: Better controlled 4. DM2 5. Morbid obesity and suspecting underlying NOE 6. Hypokalemia: resolved 7. Asymptomatic SB: no further episodes Mean 60-70s 8. Protein malnutrition Recommendations 1. Covid negative. Fluid off loading per HD. 2. Continue current BP regimen 3. Supportive care. Pulmonary team following. Plan Plan of Care Problems Medical Problems: (1) Bilateral lower extremity edema Status: Acute (2) CHF (congestive heart failure) Status: Acute (3) CRF (chronic renal failure) Status: Acute Comment Review of Relevant I have reviewed the following items reji (where applicable) has been applied. Labs Laboratory Tests Test 01/18/20 16:35 01/18/20 21:16 01/19/20 04:30 01/19/20 07:02 Glucose (Fingerstick) 193 mg/dL (70-99) 217 mg/dL (70-99) 154 mg/dL (70-99) White Blood Count 6.6 x10^3/uL (4.0-11.0) Red Blood Count 3.97 x10^6/uL (4.30-5.70) Hemoglobin 11.4 g/dL (13.0-17.5) Hematocrit 34.3 % (39.0-53.0) Mean Corpuscular Volume 87 fL (79-100) Mean Corpuscular Hemoglobin 29 pg (25-35) Mean Corpuscular Hemoglobin Concent 33 g/dL (31-37) Red Cell Distribution Width 14.4 % (11.5-14.5) Platelet Count 207 x10^3/uL (140-400) Neutrophils (%) (Auto) 65 % (31-73) Lymphocytes (%) (Auto) 17 % (24-48) Monocytes (%) (Auto) 12 % (0-9) Eosinophils (%) (Auto) 4 % (0-3) Basophils (%) (Auto) 1 % (0-3) Neutrophils # (Auto) 4.3 x10^3/uL (1.8-7.7) Lymphocytes # (Auto) 1.1 x10^3/uL (1.0-4.8) Monocytes # (Auto) 0.8 x10^3/uL (0.0-1.1) Eosinophils # (Auto) 0.3 x10^3/uL (0.0-0.7) Basophils # (Auto) 0.1 x10^3/uL (0.0-0.2) Sodium Level 138 mmol/L (136-145) Potassium Level 3.8 mmol/L (3.5-5.1) Chloride Level 99 mmol/L (98-107) Carbon Dioxide Level 30 mmol/L (21-32) Anion Gap 9 (6-14) Blood Urea Nitrogen 36 mg/dL (8-26) Creatinine 4.4 mg/dL (0.7-1.3) Estimated GFR (Cockcroft-Gault) 16.1 Glucose Level 160 mg/dL (70-99) Calcium Level 7.7 mg/dL (8.5-10.1) Phosphorus Level 4.3 mg/dL (2.6-4.7) Albumin 1.8 g/dL (3.4-5.0) Medications Current Medications Acetaminophen (Tylenol) 500 mg 1X PRN PRN PO MILD PAIN / TEMP > 100.3'F; Start 01/19/20 at 08:15; Stop 01/20/20 at 08:14 Albumin Human 200 ml @ 200 mls/hr 1X PRN PRN IV Hypotension; Start 01/19/20 at 08:15; Stop 01/19/20 at 14:14 Diphenhydramine HCl (Benadryl) 25 mg 1X PRN PRN IV ITCHING; Start 01/19/20 at 08:15; Stop 01/20/20 at 08:14 Diphenhydramine HCl (Benadryl) 25 mg 1X PRN PRN IV ITCHING; Start 01/19/20 at 08:15; Stop 01/20/20 at 08:14 Doxycycline Hyclate (Vibra-Tab) 100 mg BID PO Last administered on 01/18/20at 20:20; Start 01/18/20 at 21:00 Info (PHARMACY MONITORING -- do not chart) 1 each PRN DAILY PRN MC SEE COMMENTS; Start 01/19/20 at 08:15; Stop 01/19/20 at 08:14; Status DC Sodium Chloride 1,000 ml @ 400 mls/hr Q2H30M PRN IV PATENCY; Start 01/19/20 at 08:06; Stop 01/19/20 at 20:05 Sodium Chloride 1,000 ml @ 1,000 mls/hr Q1H PRN IV hypotension; Start 01/19/20 at 08:06; Stop 01/19/20 at 14:05 Sodium Chloride (Normal Saline Flush) 10 ml 1X PRN PRN IV AP 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; Start 01/19/20 at 08:15; Stop 01/20/20 at 08:14 Sodium Chloride (Normal Saline Flush) 10 ml 1X PRN PRN IV [employer]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; Start 01/19/20 at 08:15; Stop 01/20/20 at 08:14 Vitals/I & O Vital Sign - Last 24 Hours 01/18/20 01/18/20 01/18/20 01/18/20 11:00 14:58 14:59 14:59 Pulse 77 87 87 87 B/P (MAP) 145/84 145/84 145/84 01/18/20 01/18/20 01/18/20 01/18/20 15:01 16:37 19:05 20:00 Temp 98.2 98.5 98.2 98.5 Pulse 87 87 92 Resp 16 21 B/P (MAP) 145/84 (104) 145/84 128/83 (98) Pulse Ox 98 91 O2 Delivery Nasal Cannula Nasal Cannula Nasal Cannula O2 Flow Rate 2.0 2.0 2.0 01/18/20 01/18/20 01/19/20 01/19/20 20:20 23:25 03:55 07:00 Temp 98.1 97.8 97.7 98.1 97.8 97.7 Pulse 92 76 71 82 Resp 21 21 22 B/P (MAP) 128/83 130/86 (101) 137/88 (104) 151/91 (111) Pulse Ox 93 93 91 O2 Delivery Nasal Cannula Room Air Room Air O2 Flow Rate 2.0 l Intake and Output 01/18/20 01/18/20 01/19/20 15:00 23:00 07:00 Intake Total 180 ml 150 ml Output Total 1300 ml 100 ml Balance -1120 ml 50 ml FERCHO REYNOSO MD Jan 19, 2020 10:20
--- NOTE | 2020-01-19 12:49 | PDOC ---
SUBJECTIVE ROS seen on HD, no complaints OBJECTIVE Vital Signs Vital Signs Date Time Temp Pulse Resp B/P (MAP) Pulse Ox O2 Delivery O2 Flow Rate FiO2 01/19/20 07:00 97.7 82 22 151/91 (111) 91 Room Air 97.7 01/18/20 23:25 2.0 I & 0 Intake and Output 01/19/20 07:00 Intake Total 330 ml Output Total 1400 ml Balance -1070 ml Intake Oral 330 ml Output Urine Total 1400 ml PHYSICAL EXAM Physical Exam GENERAL: , no acute distress. HEAD AND NECK: Unremarkable, OM moist, O2 2 lts by NC CARDIAC: Regular rate and rhythm without murmurs, rubs or gallops. LUNGS: With decreased breath sounds at bases., no use of accessory muscles ABDOMEN: Obese, nontender. EXTREMITIES: Trace LE edema NEUROLOGIC: No focal deficits. MUSCULOSKELETAL: No trauma. SKIN: No rashes Freitas + , No CVA or SP tenderness DIAGNOSIS/ASSESSMENT Assessment & Plan WAYNE vs New onset ESRD - ATN/Cardiorenal UA unremarkable except for Overt proteinuria Initiated on HD on 01/16, 2nd treatment today - seen on HD, tolerating well, continue a sordered, Dw DRn no hydronephrosis on Renal US, Avoid nephrotoxins , Supportive care, strict I/O , Daily standing weight , Access Temp HDC , will need Tunneled HDC CKD stage 4- Obtained records from PCP office (on 01/17)- Cr 2.95 with eGFR 24 in May 2019 Multiple conversations with many family members ,not aware of any Kidney issues Acute hypoxic respiratory failure RLL PNEUMONIA /some acute diastolic heart failure in addition to his morbid obesity. CT - Asymmetric right lower lobe groundglass opacities and nodular consolidations, suspected to represent infection or aspiration. DM - Only on Metformin at home (eGFR of 24) Acute on chronic diastolic - On RA Fever- new, Per ID Morbid obesity COMMENT/RELEVANT DATA Meds Current Medications Medications (Trade) Dose Ordered Sig/Julián Start Time Stop Time Status Last Admin Dose Admin Acetaminophen (Tylenol) 500 mg 1X PRN PRN 01/19/20 08:15 01/20/20 08:14 Albumin Human 200 ml @ 200 mls/hr 1X PRN PRN 01/19/20 08:15 01/19/20 14:14 Amlodipine Besylate (Norvasc) 10 mg DAILY 01/15/20 09:00 01/18/20 14:59 10 MG Atorvastatin Calcium (Lipitor) 10 mg QHS 01/16/20 21:00 01/18/20 20:20 10 MG Carvedilol (Coreg) 12.5 mg BIDWMEALS 01/15/20 17:00 01/18/20 16:37 12.5 MG Dextrose (Dextrose 50%-Water Syringe) 12.5 gm PRN Q15MIN PRN 01/15/20 11:30 Diphenhydramine HCl (Benadryl) 25 mg 1X PRN PRN 01/19/20 08:15 01/20/20 08:14 Doxycycline Hyclate (Vibra-Tab) 100 mg BID 01/18/20 21:00 01/18/20 20:20 100 MG Furosemide (Lasix) 40 mg 1X ONCE 01/15/20 10:15 01/15/20 10:16 DC 01/15/20 11:22 40 MG Hydralazine HCl (Apresoline Inj) 10 mg PRN Q4HRS PRN 01/15/20 15:30 01/16/20 09:35 10 MG Hydralazine HCl (Apresoline) 50 mg BID 01/15/20 10:45 01/18/20 20:20 50 MG Info (PHARMACY MONITORING -- do not chart) 1 each PRN DAILY PRN 01/19/20 08:15 01/19/20 08:14 DC Insulin Human Lispro (HumaLOG) 0-7 UNITS TIDWMEALS 01/15/20 12:00 01/18/20 16:46 3 UNITS Isosorbide Mononitrate (Imdur) 60 mg DAILY 01/16/20 10:00 01/18/20 14:59 60 MG Levofloxacin/ Dextrose 50 ml @ 50 mls/hr Q48H 01/17/20 17:00 01/17/20 11:09 DC Levofloxacin/ Dextrose (Levaquin Per Pharmacy) 1 each PRN DAILY PRN 01/16/20 15:45 01/17/20 11:20 DC Lidocaine HCl (Buffered Lidocaine 1%) 6 ml 1X ONCE 01/17/20 13:15 01/17/20 13:16 DC 01/17/20 13:33 3 ML Linezolid/Dextrose 300 ml @ 300 mls/hr Q12HR 01/16/20 20:00 01/18/20 20:18 300 MLS/HR Metoprolol Tartrate (Lopressor) 25 mg BID 01/13/20 21:00 01/15/20 13:22 DC 01/15/20 08:28 25 MG Piperacillin Sod/ Tazobactam Sod 2.25 gm/Sodium Chloride 50 ml @ 100 mls/hr Q8HRS 01/17/20 12:00 01/19/20 05:05 100 MLS/HR Potassium Chloride (Klor-Con) 40 meq 1X ONCE 01/16/20 11:45 01/16/20 11:46 DC 01/16/20 13:18 40 MEQ Sodium Chloride 1,000 ml @ 400 mls/hr Q2H30M PRN 01/19/20 08:06 01/19/20 20:05 Sodium Chloride (Normal Saline Flush) 10 ml 1X PRN PRN 01/19/20 08:15 01/20/20 08:14 Vancomycin HCl (Vanco Per Pharmacy) 1 each PRN DAILY PRN 01/16/20 19:15 UNV Lab Laboratory Tests Test 01/18/20 16:35 01/18/20 21:16 01/19/20 04:30 01/19/20 07:02 Glucose (Fingerstick) 193 mg/dL (70-99) 217 mg/dL (70-99) 154 mg/dL (70-99) White Blood Count 6.6 x10^3/uL (4.0-11.0) Red Blood Count 3.97 x10^6/uL (4.30-5.70) Hemoglobin 11.4 g/dL (13.0-17.5) Hematocrit 34.3 % (39.0-53.0) Mean Corpuscular Volume 87 fL (79-100) Mean Corpuscular Hemoglobin 29 pg (25-35) Mean Corpuscular Hemoglobin Concent 33 g/dL (31-37) Red Cell Distribution Width 14.4 % (11.5-14.5) Platelet Count 207 x10^3/uL (140-400) Neutrophils (%) (Auto) 65 % (31-73) Lymphocytes (%) (Auto) 17 % (24-48) Monocytes (%) (Auto) 12 % (0-9) Eosinophils (%) (Auto) 4 % (0-3) Basophils (%) (Auto) 1 % (0-3) Neutrophils # (Auto) 4.3 x10^3/uL (1.8-7.7) Lymphocytes # (Auto) 1.1 x10^3/uL (1.0-4.8) Monocytes # (Auto) 0.8 x10^3/uL (0.0-1.1) Eosinophils # (Auto) 0.3 x10^3/uL (0.0-0.7) Basophils # (Auto) 0.1 x10^3/uL (0.0-0.2) Sodium Level 138 mmol/L (136-145) Potassium Level 3.8 mmol/L (3.5-5.1) Chloride Level 99 mmol/L (98-107) Carbon Dioxide Level 30 mmol/L (21-32) Anion Gap 9 (6-14) Blood Urea Nitrogen 36 mg/dL (8-26) Creatinine 4.4 mg/dL (0.7-1.3) Estimated GFR (Cockcroft-Gault) 16.1 Glucose Level 160 mg/dL (70-99) Calcium Level 7.7 mg/dL (8.5-10.1) Phosphorus Level 4.3 mg/dL (2.6-4.7) Albumin 1.8 g/dL (3.4-5.0) Results All relevant outside records, renal labs, imaging studies, telemetry/EKG's were reviewed. Justicifation of Admission Dx: Justifications for Admission: Justification of Admission Dx: Yes Respiratory Failure: Severe Resp Distress Chronic Renal Failure: Electrolyte Abnormality MARTINEZ GANT MD Jan 19, 2020 12:49
[2020-01-19] MEDS: DOXYCYCLINE HYCLATE 100 MG TABLET PO SCH ×2 (13:41→21:18)
[2020-01-19] MEDS: amLODIPine BESYLATE 10 MG TABLET PO SCH (13:41)
[2020-01-19] MEDS: ISOSORBIDE MONONITRATE ER 30 MG TAB.ER.24H PO SCH (13:42)
[2020-01-19 13:54] VITALS: BP 134/86
[2020-01-19 14:53] VITALS: BP 156/78
[2020-01-19 19:00] VITALS: BP 101/58
[2020-01-19] MEDS: LACTOBACILLUS RHAMNOSUS GG 1 CAPSULE. PO SCH (21:18)
[2020-01-19] MEDS: ATORVASTATIN CALCIUM 10 MG TABLET. PO SCH (21:18)
[2020-01-19 23:16] VITALS: BP 108/67
[2020-01-20 02:41] VITALS: BP 128/77
[2020-01-20] MEDS: PIPERACILLIN/TAZOBACTAM 2.25 GM in IV NORMAL SALINE 50ML 50 ML IV SCH (05:47)
[2020-01-20 07:00] VITALS: BP 120/78
[2020-01-20 07:41] LABS: ALBUMIN 1.8 g/dL (3.4-5.0); CALCIUM 7.5 mg/dL (8.5-10.1); CREATININE 5.3 mg/dL (0.7-1.3); PHOSPHORUS 4.6 mg/dL (2.6-4.7); POTASSIUM 3.7 mmol/L (3.5-5.1)
[2020-01-20] MEDS: INSULIN LISPRO 300 UNITS/3 ML VIAL. SQ SCH ×3 (08:00→17:00)
--- NOTE | 2020-01-20 08:41 | PDOC ---
PULMONARY PROGRESS NOTES Subjective denies sob, on 02 2 lpm prn, has occ cough, no pain, had hd 01/16-01/17, doesnt use cpap at home need a new mask Vitals Vital Signs Date Time Temp Pulse Resp B/P (MAP) Pulse Ox O2 Delivery O2 Flow Rate FiO2 01/20/20 07:50 Nasal Cannula 2.0 01/20/20 07:00 97.7 78 20 120/78 (92) 95 97.7 General: Alert, No acute distress Lungs: Crackles, Other (decrease bs) Cardiovascular: S1, S2 Abdomen: Soft, Non-tender, Other (obese) Neuro Exam: Alert Extremities: Other (trace edema) Skin: Warm Labs Laboratory Tests Test 01/18/20 16:35 01/18/20 21:16 01/19/20 04:30 01/19/20 07:02 Glucose (Fingerstick) 193 mg/dL (70-99) 217 mg/dL (70-99) 154 mg/dL (70-99) White Blood Count 6.6 x10^3/uL (4.0-11.0) Red Blood Count 3.97 x10^6/uL (4.30-5.70) Hemoglobin 11.4 g/dL (13.0-17.5) Hematocrit 34.3 % (39.0-53.0) Mean Corpuscular Volume 87 fL (79-100) Mean Corpuscular Hemoglobin 29 pg (25-35) Mean Corpuscular Hemoglobin Concent 33 g/dL (31-37) Red Cell Distribution Width 14.4 % (11.5-14.5) Platelet Count 207 x10^3/uL (140-400) Neutrophils (%) (Auto) 65 % (31-73) Lymphocytes (%) (Auto) 17 % (24-48) Monocytes (%) (Auto) 12 % (0-9) Eosinophils (%) (Auto) 4 % (0-3) Basophils (%) (Auto) 1 % (0-3) Neutrophils # (Auto) 4.3 x10^3/uL (1.8-7.7) Lymphocytes # (Auto) 1.1 x10^3/uL (1.0-4.8) Monocytes # (Auto) 0.8 x10^3/uL (0.0-1.1) Eosinophils # (Auto) 0.3 x10^3/uL (0.0-0.7) Basophils # (Auto) 0.1 x10^3/uL (0.0-0.2) Sodium Level 138 mmol/L (136-145) Potassium Level 3.8 mmol/L (3.5-5.1) Chloride Level 99 mmol/L (98-107) Carbon Dioxide Level 30 mmol/L (21-32) Anion Gap 9 (6-14) Blood Urea Nitrogen 36 mg/dL (8-26) Creatinine 4.4 mg/dL (0.7-1.3) Estimated GFR (Cockcroft-Gault) 16.1 Glucose Level 160 mg/dL (70-99) Calcium Level 7.7 mg/dL (8.5-10.1) Phosphorus Level 4.3 mg/dL (2.6-4.7) Albumin 1.8 g/dL (3.4-5.0) Test 01/19/20 13:13 01/19/20 16:21 01/19/20 20:26 01/20/20 06:25 Glucose (Fingerstick) 153 mg/dL (70-99) 169 mg/dL (70-99) 194 mg/dL (70-99) Sodium Level 138 mmol/L (136-145) Potassium Level 3.7 mmol/L (3.5-5.1) Chloride Level 100 mmol/L (98-107) Carbon Dioxide Level 29 mmol/L (21-32) Anion Gap 9 (6-14) Blood Urea Nitrogen 31 mg/dL (8-26) Creatinine 5.3 mg/dL (0.7-1.3) Estimated GFR (Cockcroft-Gault) 13.0 Glucose Level 173 mg/dL (70-99) Calcium Level 7.5 mg/dL (8.5-10.1) Phosphorus Level 4.6 mg/dL (2.6-4.7) Albumin 1.8 g/dL (3.4-5.0) Test 01/20/20 07:00 Glucose (Fingerstick) 153 mg/dL (70-99) Laboratory Tests Test 01/19/20 13:13 01/19/20 16:21 01/19/20 20:26 01/20/20 06:25 Glucose (Fingerstick) 153 mg/dL (70-99) 169 mg/dL (70-99) 194 mg/dL (70-99) Sodium Level 138 mmol/L (136-145) Potassium Level 3.7 mmol/L (3.5-5.1) Chloride Level 100 mmol/L (98-107) Carbon Dioxide Level 29 mmol/L (21-32) Anion Gap 9 (6-14) Blood Urea Nitrogen 31 mg/dL (8-26) Creatinine 5.3 mg/dL (0.7-1.3) Estimated GFR (Cockcroft-Gault) 13.0 Glucose Level 173 mg/dL (70-99) Calcium Level 7.5 mg/dL (8.5-10.1) Phosphorus Level 4.6 mg/dL (2.6-4.7) Albumin 1.8 g/dL (3.4-5.0) Test 01/20/20 07:00 Glucose (Fingerstick) 153 mg/dL (70-99) Medications Active Scripts Medications Dose Route/Sig Max Daily Dose Days Date Category Amlodipine Besylate 10 Mg Tablet 10 Mg PO DAILY 01/13/20 Reported Metformin Hcl 1,000 Mg Tablet 1,000 Mg PO BIDWMEALS 01/13/[address] CHEST IMPRESSION: 1. Asymmetric right lower lobe groundglass opacities and nodular consolidations, suspected to represent infection or aspiration. 2. Trace left pleural effusion. 3. Incompletely characterized right thyroid nodule measuring 3.6 cm could be further evaluated with thyroid ultrasound Electronically signed by: Adriel Lawson MD (01/18/2020 9:50 AM) [id number] Impression . 1. Acute hypoxic respiratory failure secondary to multifactorial etiologies and likely contributed by RLL PNEUMONIA /some acute diastolic heart failure in addition to his morbid obesity. 2. No significant tobacco history. 3. Underlying obstructive sleep apnea. 4. Acute kidney injury on chronic kidney disease. Plan . 1. CT chest reviewed. c/w RLL pneumonia 2. Continue Zosyn/Zyvox/doxy per id 3. I do recommend to continue home CPAP, will need to contact dme for a new mask. the importance of wayne tx discussed 4. HD per renal 5. COVID-19 neg d/w RN, pt DEIDRA OAKES MD Jan 20, 2020 08:41
[2020-01-20] MEDS: LACTOBACILLUS RHAMNOSUS GG 1 CAPSULE. PO SCH ×2 (09:09→20:39)
[2020-01-20] MEDS: DOXYCYCLINE HYCLATE 100 MG TABLET PO SCH (09:10)
[2020-01-20] MEDS: ISOSORBIDE MONONITRATE ER 30 MG TAB.ER.24H PO SCH (09:10)
[2020-01-20] MEDS: amLODIPine BESYLATE 10 MG TABLET PO SCH (09:10)
[2020-01-20] MEDS: CARVEDILOL 12.5 MG TABLET. PO SCH ×2 (09:10→16:32)
--- NOTE | 2020-01-20 10:24 | PDOC ---
SUBJECTIVE ROS No complaints OBJECTIVE Vital Signs Vital Signs Date Time Temp Pulse Resp B/P (MAP) Pulse Ox O2 Delivery O2 Flow Rate FiO2 01/20/20 09:10 80 01/20/20 07:50 Nasal Cannula 2.0 01/20/20 07:00 97.7 20 120/78 (92) 95 97.7 I & 0 Intake and Output 01/20/20 07:00 Intake Total 840 ml Output Total 50 ml Balance 790 ml Intake Oral 840 ml Output Urine Total 50 ml # Bowel Movements 1 PHYSICAL EXAM Physical Exam GENERAL: , no acute distress. HEAD AND NECK: Unremarkable, OM moist, O2 2 lts by NC CARDIAC: Regular rate and rhythm without murmurs, rubs or gallops. LUNGS: With decreased breath sounds at bases., no use of accessory muscles ABDOMEN: Obese, nontender. EXTREMITIES: Trace LE edema NEUROLOGIC: No focal deficits. MUSCULOSKELETAL: No trauma. SKIN: No rashes Freitas + , No CVA or SP tenderness DIAGNOSIS/ASSESSMENT Assessment & Plan New onset ESRD - ATN/Cardiorenal UA unremarkable except for Overt proteinuria Initiated on HD on 01/16 x 3 , UOP declined no hydronephrosis on Renal US, Avoid nephrotoxins , Supportive care, Access Temp HDC , Tunneled HDC on Tuesday Chair time set up for MWF CKD stage 4- Obtained records from PCP office (on 01/17)- Cr 2.95 with eGFR 24 in May 2019 Multiple conversations with many family members ,not aware of any Kidney issues Acute hypoxic respiratory failure RLL PNEUMONIA /some acute diastolic heart f ailure in addition to his morbid obesity. CT - Asymmetric right lower lobe groundglass opacities and nodular consolidations, suspected to represent infection or aspiration. DM - Only on Metformin at home (eGFR of 24) Acute on chronic diastolic - On RA Fever- new, Per ID Morbid obesity COMMENT/RELEVANT DATA Meds Current Medications Medications (Trade) Dose Ordered Sig/Julián Start Time Stop Time Status Last Admin Dose Admin Acetaminophen (Tylenol) 500 mg 1X PRN PRN 01/19/20 08:15 01/20/20 08:14 DC Albumin Human 200 ml @ 200 mls/hr 1X PRN PRN 01/19/20 08:15 01/19/20 14:14 DC Amlodipine Besylate (Norvasc) 10 mg DAILY 01/15/20 09:00 01/20/20 09:10 10 MG Atorvastatin Calcium (Lipitor) 10 mg QHS 01/16/20 21:00 01/19/20 21:18 10 MG Carvedilol (Coreg) 12.5 mg BIDWMEALS 01/15/20 17:00 01/20/20 09:10 12.5 MG Dextrose (Dextrose 50%-Water Syringe) 12.5 gm PRN Q15MIN PRN 01/15/20 11:30 Diphenhydramine HCl (Benadryl) 25 mg 1X PRN PRN 01/19/20 08:15 01/20/20 08:14 DC Doxycycline Hyclate (Vibra-Tab) 100 mg BID 01/18/20 21:00 01/20/20 09:10 100 MG Furosemide (Lasix) 40 mg 1X ONCE 01/15/20 10:15 01/15/20 10:16 DC 01/15/20 11:22 40 MG Hydralazine HCl (Apresoline Inj) 10 mg PRN Q4HRS PRN 01/15/20 15:30 01/16/20 09:35 10 MG Hydralazine HCl (Apresoline) 50 mg BID 01/15/20 10:45 01/20/20 09:10 50 MG Info (PHARMACY MONITORING -- do not chart) 1 each PRN DAILY PRN 01/19/20 08:15 01/19/20 08:14 DC Insulin Human Lispro (HumaLOG) 0-7 UNITS TIDWMEALS 01/15/20 12:00 01/18/20 16:46 3 UNITS Isosorbide Mononitrate (Imdur) 60 mg DAILY 01/16/20 10:00 01/20/20 09:10 60 MG Lactobacillus Rhamnosus (Culturelle) 1 cap BID 01/19/20 21:00 01/20/20 09:09 1 CAP Levofloxacin/ Dextrose 50 ml @ 50 mls/hr Q48H 01/17/20 17:00 01/17/20 11:09 DC Levofloxacin/ Dextrose (Levaquin Per Pharmacy) 1 each PRN DAILY PRN 01/16/20 15:45 01/17/20 11:20 DC Lidocaine HCl (Buffered Lidocaine 1%) 6 ml 1X ONCE 01/17/20 13:15 01/17/20 13:16 DC 01/17/20 13:33 3 ML Linezolid/Dextrose 300 ml @ 300 mls/hr Q12HR 01/16/20 20:00 01/20/20 09:11 300 MLS/HR Metoprolol Tartrate (Lopressor) 25 mg BID 01/13/20 21:00 01/15/20 13:22 DC 01/15/20 08:28 25 MG Piperacillin Sod/ Tazobactam Sod 2.25 gm/Sodium Chloride 50 ml @ 100 mls/hr Q8HRS 01/17/20 12:00 01/20/20 05:47 100 MLS/HR Potassium Chloride (Klor-Con) 40 meq 1X ONCE 01/16/20 11:45 01/16/20 11:46 DC 01/16/20 13:18 40 MEQ Sodium Chloride 1,000 ml @ 400 mls/hr Q2H30M PRN 01/19/20 08:06 01/19/20 20:05 DC Sodium Chloride (Normal Saline Flush) 10 ml 1X PRN PRN 01/19/20 08:15 01/20/20 08:14 DC Vancomycin HCl (Vanco Per Pharmacy) 1 each PRN DAILY PRN 01/16/20 19:15 UNV Lab Laboratory Tests Test 01/19/20 13:13 01/19/20 16:21 01/19/20 20:26 01/20/20 06:25 Glucose (Fingerstick) 153 mg/dL (70-99) 169 mg/dL (70-99) 194 mg/dL (70-99) Sodium Level 138 mmol/L (136-145) Potassium Level 3.7 mmol/L (3.5-5.1) Chloride Level 100 mmol/L (98-107) Carbon Dioxide Level 29 mmol/L (21-32) Anion Gap 9 (6-14) Blood Urea Nitrogen 31 mg/dL (8-26) Creatinine 5.3 mg/dL (0.7-1.3) Estimated GFR (Cockcroft-Gault) 13.0 Glucose Level 173 mg/dL (70-99) Calcium Level 7.5 mg/dL (8.5-10.1) Phosphorus Level 4.6 mg/dL (2.6-4.7) Albumin 1.8 g/dL (3.4-5.0) Test 01/20/20 07:00 Glucose (Fingerstick) 153 mg/dL (70-99) Results All relevant outside records, renal labs, imaging studies, telemetry/EKG's were reviewed. Justicifation of Admission Dx: Justifications for Admission: Justification of Admission Dx: Yes Respiratory Failure: Severe Resp Distress Chronic Renal Failure: Electrolyte Abnormality MARTINEZ GANT MD Jan 20, 2020 10:24
--- NOTE | 2020-01-20 10:31 | PDOC ---
Infectious Disease Note Subjective Subjective Comfortable Good friend and daughter are visiting Decrease UOP Denies F/C/SOA/N/V/D ROS ROS as mentioned above Vital Sign Vital Signs Vital Signs Date Time Temp Pulse Resp B/P (MAP) Pulse Ox O2 Delivery O2 Flow Rate FiO2 01/20/20 09:10 80 01/20/20 07:50 Nasal Cannula 2.0 01/20/20 07:00 97.7 20 120/78 (92) 95 97.7 Physical Exam PHYSICAL EXAM GENERAL: Propped up in bed, alert, relaxed appearance HEENT: Normal conjunctivae. Oral cavity, pharynx is clear. NECK: Supple. Good range of motion. LUNGS: Clear anteriorly, nonlabored HEART: S1, S2. regular ABDOMEN: Obese, soft, nontender, with positive bowel sounds, no guarding. : Freitas EXTREMITIES: No clubbing, cyanosis. Trace edema. SKIN: Warm without signs of generalized rash. NEUROLOGIC: Alert, nonfocal, answers questions appropriately Temp HDC (01/16) without signs of complications PIV Labs Lab Laboratory Tests Test 01/19/20 13:13 01/19/20 16:21 01/19/20 20:26 01/20/20 06:25 Glucose (Fingerstick) 153 mg/dL (70-99) 169 mg/dL (70-99) 194 mg/dL (70-99) Sodium Level 138 mmol/L (136-145) Potassium Level 3.7 mmol/L (3.5-5.1) Chloride Level 100 mmol/L (98-107) Carbon Dioxide Level 29 mmol/L (21-32) Anion Gap 9 (6-14) Blood Urea Nitrogen 31 mg/dL (8-26) Creatinine 5.3 mg/dL (0.7-1.3) Estimated GFR (Cockcroft-Gault) 13.0 Glucose Level 173 mg/dL (70-99) Calcium Level 7.5 mg/dL (8.5-10.1) Phosphorus Level 4.6 mg/dL (2.6-4.7) Albumin 1.8 g/dL (3.4-5.0) Test 01/20/20 07:00 Glucose (Fingerstick) 153 mg/dL (70-99) Objective Assessment Fever - better PCN allergy - has tolerated Amoxicillin Acute hypoxic resp failure w/ groundglass opacities and nodular consolidations on CT scan- COVID/mycoplasma - neg WAYNE requiring HD Morbid Obesity Acute on chronic diastolic heart failure: EF nml. DM HTN urgency Plan Plan of Care Continue Zosyn/Zyvox/doxy F/u labs f/u strep/legionella antigens Awaiting renal follow-up D/w daughter at bedside D/w nursing Attending Co-Sign The patient was seen and interviewed as well as examined at the bedside. The chart was reviewed. The case was discussed. Agree with the plan of care. BROOKLYNN WILLIS APRN Jan 20, 2020 10:31 INES ACOSTA MD Jan 20, 2020 11:26
[2020-01-20 11:01] VITALS: BP 117/66
--- NOTE | 2020-01-20 11:29 | PDOC ---
PROGRESS NOTES Chief Complaint Chief Complaint IMPRESSION Acute on chronic systolic and diastolic heart failure RLL PNEUMONIA /some acute diastolic heart failure in addition to his morbid obesity Severe edema Hyponatremia Severe renal failure Severe noncompliance, diabetes, hypertension, congestive heart failure, rotator cuff surgery, thumb surgery, leg surgery after an infection in his leg. Incompletely characterized right thyroid nodule measuring 3.6 cm could be further evaluated with thyroid ultrasound There is a TR3 nodule of the right thyroid lobe. Based on size, nonurgent ultrasound guided FNA is suggested. d/w rn History of Present Illness History of Present Illness 01/19 Patient seen and examined ruling out COVID-19 Chart reviewed Discussed with RN THYROID SONO There is a TR3 nodule of the right thyroid lobe. Based on size, nonurgent ultrasound guided FNA is suggested. 01/15/2020 Patient seen and examined We have now placed a Freitas to bedside drainage as he did have 318 cc of post void residual Creatinine is down to 3.8 from 3.9 His daughter is at the bedside and we discussed the case with her Discussed with RN Chart reviewed We are trying Lasix today cautiously His EF was surprisingly normal at 55% 01/14/2020 Patient seen and examined He is still edematous and short of breath Family present Discussed with RN We are going to check a post void residual and place a Freitas if necessary Chart reviewed Vitals Vitals Vital Signs Date Time Temp Pulse Resp B/P (MAP) Pulse Ox O2 Delivery O2 Flow Rate FiO2 01/20/20 11:01 97.8 87 20 117/66 (83) 94 Nasal Cannula 2.0 97.8 Physical Exam Physical Exam GENERAL: Propped up in bed, alert, relaxed appearance HEENT: Normal conjunctivae. Oral cavity, pharynx is clear. NECK: Supple. Good range of motion. LUNGS: Clear anteriorly, nonlabored HEART: S1, S2. regular ABDOMEN: Obese, soft, nontender, with positive bowel sounds, no guarding. : Freitas EXTREMITIES: No clubbing, cyanosis. Trace edema. SKIN: Warm without signs of generalized rash. NEUROLOGIC: Alert, nonfocal, answers questions appropriately Temp HDC (01/16) without signs of complications PIV General: Alert, Oriented X3, Cooperative, No acute distress, mild distress Heart: Regular rate Lungs: Crackles, Other (decrease bs) Abdomen: Normal bowel sounds, Other (Distended) Extremities: No cyanosis, Other Skin: No rashes, No breakdown Labs LABS THYROID ULTRASOUND History: Mass. Abnormal CT. Comparison: CT chest without contrast, earlier same day. Technique: Multiple grayscale and color Doppler images of the thyroid gland were obtained. Findings: Measurements in length, AP (height), and transverse (width), respectively, unless otherwise stated. Right thyroid lobe measures 4.5 x 2.7 x 2.6 cm. There is a right thyroid nodule occupying a large portion of the right thyroid lobe. The maximum dimension of the nodule is probably on the order of 3.4 cm. The nodule is characterized as TR3. The isthmus measures 3 mm. The left thyroid lobe measures 3.8 x 1.7 x 1.7 cm. There is a 3 mm cyst in the inferior left thyroid lobe. ACR Thyroid Imaging, Reporting And Data System (TI-RADS): White Paper Of The ACR TI-RADS Committee. Journal of the [employer], volume 14, issue 5, pages 587-595 (November 2016). IMPRESSION: There is a TR3 nodule of the right thyroid lobe. Based on size, nonurgent ultrasound guided FNA is suggested. Laboratory Tests Test 01/19/20 13:13 01/19/20 16:21 01/19/20 20:26 01/20/20 06:25 Glucose (Fingerstick) 153 mg/dL (70-99) 169 mg/dL (70-99) 194 mg/dL (70-99) Sodium Level 138 mmol/L (136-145) Potassium Level 3.7 mmol/L (3.5-5.1) Chloride Level 100 mmol/L (98-107) Carbon Dioxide Level 29 mmol/L (21-32) Anion Gap 9 (6-14) Blood Urea Nitrogen 31 mg/dL (8-26) Creatinine 5.3 mg/dL (0.7-1.3) Estimated GFR (Cockcroft-Gault) 13.0 Glucose Level 173 mg/dL (70-99) Calcium Level 7.5 mg/dL (8.5-10.1) Phosphorus Level 4.6 mg/dL (2.6-4.7) Albumin 1.8 g/dL (3.4-5.0) Test 01/20/20 07:00 01/20/20 11:14 Glucose (Fingerstick) 153 mg/dL (70-99) 204 mg/dL (70-99) Assessment and Plan Assessmemt and Plan Problems Medical Problems: (1) Bilateral lower extremity edema Status: Acute (2) CHF (congestive heart failure) Status: Acute (3) CRF (chronic renal failure) Status: Acute Comment Review of Relevant I have reviewed the following items reji (where applicable) has been applied. Labs Laboratory Tests Test 01/18/20 15:22 01/18/20 16:35 01/18/20 21:16 01/19/20 04:30 Body Fluid Culture (LAB) Not indicated. (.) Streptococcus pneumoniae Antigen Negative (Negative) Organism Identification (LAB) Not indicated. (.) YOUNG Specimen Source Urine (.) Glucose (Fingerstick) 193 mg/dL (70-99) 217 mg/dL (70-99) White Blood Count 6.6 x10^3/uL (4.0-11.0) Red Blood Count 3.97 x10^6/uL (4.30-5.70) Hemoglobin 11.4 g/dL (13.0-17.5) Hematocrit 34.3 % (39.0-53.0) Mean Corpuscular Volume 87 fL (79-100) Mean Corpuscular Hemoglobin 29 pg (25-35) Mean Corpuscular Hemoglobin Concent 33 g/dL (31-37) Red Cell Distribution Width 14.4 % (11.5-14.5) Platelet Count 207 x10^3/uL (140-400) Neutrophils (%) (Auto) 65 % (31-73) Lymphocytes (%) (Auto) 17 % (24-48) Monocytes (%) (Auto) 12 % (0-9) Eosinophils (%) (Auto) 4 % (0-3) Basophils (%) (Auto) 1 % (0-3) Neutrophils # (Auto) 4.3 x10^3/uL (1.8-7.7) Lymphocytes # (Auto) 1.1 x10^3/uL (1.0-4.8) Monocytes # (Auto) 0.8 x10^3/uL (0.0-1.1) Eosinophils # (Auto) 0.3 x10^3/uL (0.0-0.7) Basophils # (Auto) 0.1 x10^3/uL (0.0-0.2) Sodium Level 138 mmol/L (136-145) Potassium Level 3.8 mmol/L (3.5-5.1) Chloride Level 99 mmol/L (98-107) Carbon Dioxide Level 30 mmol/L (21-32) Anion Gap 9 (6-14) Blood Urea Nitrogen 36 mg/dL (8-26) Creatinine 4.4 mg/dL (0.7-1.3) Estimated GFR (Cockcroft-Gault) 16.1 Glucose Level 160 mg/dL (70-99) Calcium Level 7.7 mg/dL (8.5-10.1) Phosphorus Level 4.3 mg/dL (2.6-4.7) Albumin 1.8 g/dL (3.4-5.0) Test 01/19/20 07:02 01/19/20 13:13 01/19/20 16:21 01/19/20 20:26 Glucose (Fingerstick) 154 mg/dL (70-99) 153 mg/dL (70-99) 169 mg/dL (70-99) 194 mg/dL (70-99) Test 01/20/20 06:25 01/20/20 07:00 01/20/20 11:14 Sodium Level 138 mmol/L (136-145) Potassium Level 3.7 mmol/L (3.5-5.1) Chloride Level 100 mmol/L (98-107) Carbon Dioxide Level 29 mmol/L (21-32) Anion Gap 9 (6-14) Blood Urea Nitrogen 31 mg/dL (8-26) Creatinine 5.3 mg/dL (0.7-1.3) Estimated GFR (Cockcroft-Gault) 13.0 Glucose Level 173 mg/dL (70-99) Calcium Level 7.5 mg/dL (8.5-10.1) Phosphorus Level 4.6 mg/dL (2.6-4.7) Albumin 1.8 g/dL (3.4-5.0) Glucose (Fingerstick) 153 mg/dL (70-99) 204 mg/dL (70-99) Laboratory Tests Test 01/19/20 13:13 01/19/20 16:21 01/19/20 20:26 01/20/20 06:25 Glucose (Fingerstick) 153 mg/dL (70-99) 169 mg/dL (70-99) 194 mg/dL (70-99) Sodium Level 138 mmol/L (136-145) Potassium Level 3.7 mmol/L (3.5-5.1) Chloride Level 100 mmol/L (98-107) Carbon Dioxide Level 29 mmol/L (21-32) Anion Gap 9 (6-14) Blood Urea Nitrogen 31 mg/dL (8-26) Creatinine 5.3 mg/dL (0.7-1.3) Estimated GFR (Cockcroft-Gault) 13.0 Glucose Level 173 mg/dL (70-99) Calcium Level 7.5 mg/dL (8.5-10.1) Phosphorus Level 4.6 mg/dL (2.6-4.7) Albumin 1.8 g/dL (3.4-5.0) Test 01/20/20 07:00 01/20/20 11:14 Glucose (Fingerstick) 153 mg/dL (70-99) 204 mg/dL (70-99) Medications Current Medications Metoprolol Tartrate (Lopressor) 25 mg BID PO Last administered on 01/15/20at 08:28; Start 01/13/20 at 21:00; Stop 01/15/20 at 13:22; Status DC Acetaminophen (Tylenol) 650 mg PRN Q6HRS PRN PO MILD PAIN / TEMP > 100.3'F Last administered on 01/16/20at 18:13; Start 01/13/20 at 20:15 Amlodipine Besylate (Norvasc) 10 mg DAILY PO Last administered on 01/20/20at 09:10; Start 01/15/20 at 09:00 Furosemide (Lasix) 40 mg 1X ONCE IVP Last administered on 01/15/20at 11:22; Start 01/15/20 at 10:15; Stop 01/15/20 at 10:16; Status DC Potassium Chloride (Klor-Con) 40 meq 1X ONCE PO Last administered on 01/15/20at 11:21; Start 01/15/20 at 10:15; Stop 01/15/20 at 10:16; Status DC Hydralazine HCl (Apresoline) 50 mg BID PO Last administered on 01/20/20at 09:10; Start 01/15/20 at 10:45 Insulin Human Lispro (HumaLOG) 0-7 UNITS TIDWMEALS SQ Last administered on 01/18/20at 16:46; Start 01/15/20 at 12:00 Dextrose (Dextrose 50%-Water Syringe) 12.5 gm PRN Q15MIN PRN IV SEE COMMENTS; Start 01/15/20 at 11:30 Carvedilol (Coreg) 12.5 mg BIDWMEALS PO Last administered on 01/20/20at 09:10; Start 01/15/20 at 17:00 Hydralazine HCl (Apresoline Inj) 10 mg PRN Q4HRS PRN IVP ELEVATED BP, SEE COMMENTS Last administered on 01/16/20at 09:35; Start 01/15/20 at 15:30 Isosorbide Mononitrate (Imdur) 60 mg DAILY PO Last administered on 01/20/20at 09:10; Start 01/16/20 at 10:00 Potassium Chloride (Klor-Con) 40 meq 1X ONCE PO Last administered on 01/16/20at 13:18; Start 01/16/20 at 11:45; Stop 01/16/20 at 11:46; Status DC Atorvastatin Calcium (Lipitor) 10 mg QHS PO Last administered on 01/19/20at 21:18; Start 01/16/20 at 21:00 Levofloxacin/ Dextrose (Levaquin Per Pharmacy) 1 each PRN DAILY PRN MC SEE COMMENTS; Start 01/16/20 at 15:45; Stop 01/17/20 at 11:20; Status DC Levofloxacin/ Dextrose 100 ml @ 100 mls/hr 1X ONCE IV Last administered on 01/16/20at 17:43; Start 01/16/20 at 17:00; Stop 01/16/20 at 17:59; Status DC Levofloxacin/ Dextrose 50 ml @ 50 mls/hr Q48H IV ; Start 01/17/20 at 17:00; Stop 01/17/20 at 11:09; Status DC Vancomycin HCl (Vanco Per Pharmacy) 1 each PRN DAILY PRN MC SEE COMMENTS; Start 01/16/20 at 19:15; Status UNV Linezolid/Dextrose 300 ml @ 300 mls/hr Q12HR IV Last administered on 01/20/20at 09:11; Start 01/16/20 at 20:00 Piperacillin Sod/ Tazobactam Sod 2.25 gm/Sodium Chloride 50 ml @ 100 mls/hr Q8HRS IV Last administered on 01/20/20at 05:47; Start 01/17/20 at 12:00 Lidocaine HCl (Buffered Lidocaine 1%) 3 ml STK-MED ONCE .ROUTE ; Start 01/17/20 at 13:07; Stop 01/17/20 at 13:07; Status DC Lidocaine HCl (Buffered Lidocaine 1%) 6 ml 1X ONCE INJ Last administered on 01/17/20at 13:33; Start 01/17/20 at 13:15; Stop 01/17/20 at 13:16; Status DC Sodium Chloride 1,000 ml @ 1,000 mls/hr Q1H PRN IV hypotension; Start 01/17/20 at 16:51; Stop 01/17/20 at 22:50; Status DC Acetaminophen (Tylenol) 500 mg 1X PRN PRN PO MILD PAIN / TEMP > 100.3'F; Start 01/17/20 at 17:00; Stop 01/18/20 at 16:59; Status DC Diphenhydramine HCl (Benadryl) 25 mg 1X PRN PRN IV ITCHING; Start 01/17/20 at 17:00; Stop 01/18/20 at 09:53; Status DC Diphenhydramine HCl (Benadryl) 25 mg 1X PRN PRN IV ITCHING; Start 01/17/20 at 17:00; Stop 01/18/20 at 09:54; Status DC Sodium Chloride 1,000 ml @ 400 mls/hr Q2H30M PRN IV PATENCY; Start 01/17/20 at 16:51; Stop 01/18/20 at 04:50; Status DC Info (PHARMACY MONITORING -- do not chart) 1 each PRN DAILY PRN MC SEE COMMENTS; Start 01/17/20 at 17:00; Stop 01/18/20 at 09:55; Status DC Sodium Chloride 1,000 ml @ 1,000 mls/hr Q1H PRN IV hypotension; Start 01/18/20 at 07:46; Stop 01/18/20 at 13:45; Status DC Diphenhydramine HCl (Benadryl) 25 mg 1X PRN PRN IV ITCHING; Start 01/18/20 at 08:00; Stop 01/19/20 at 07:59; Status DC Diphenhydramine HCl (Benadryl) 25 mg 1X PRN PRN IV ITCHING; Start 01/18/20 at 08:00; Stop 01/19/20 at 07:59; Status DC Sodium Chloride 1,000 ml @ 400 mls/hr Q2H30M PRN IV PATENCY; Start 01/18/20 at 07:46; Stop 01/18/20 at 19:45; Status DC Info (PHARMACY MONITORING -- do not chart) 1 each PRN DAILY PRN MC SEE COMMENTS; Start 01/18/20 at 08:00 Doxycycline Hyclate (Vibra-Tab) 100 mg BID PO Last administered on 01/20/20at 09:10; Start 01/18/20 at 21:00 Sodium Chloride 1,000 ml @ 1,000 mls/hr Q1H PRN IV hypotension; Start 01/19/20 at 08:06; Stop 01/19/20 at 14:05; Status DC Albumin Human 200 ml @ 200 mls/hr 1X PRN PRN IV Hypotension; Start 01/19/20 at 08:15; Stop 01/19/20 at 14:14; Status DC Acetaminophen (Tylenol) 500 mg 1X PRN PRN PO MILD PAIN / TEMP > 100.3'F; Start 01/19/20 at 08:15; Stop 01/20/20 at 08:14; Status DC Diphenhydramine HCl (Benadryl) 25 mg 1X PRN PRN IV ITCHING; Start 01/19/20 at 08:15; Stop 01/20/20 at 08:14; Status DC Diphenhydramine HCl (Benadryl) 25 mg 1X PRN PRN IV ITCHING; Start 01/19/20 at 08:15; Stop 01/20/20 at 08:14; Status DC Sodium Chloride (Normal Saline Flush) 10 ml 1X PRN PRN IV AP 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; Start 01/19/20 at 08:15; Stop 01/20/20 at 08:14; Status DC Sodium Chloride (Normal Saline Flush) 10 ml 1X PRN PRN IV BUFFER MACHINE 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; Start 01/19/20 at 08:15; Stop 01/20/20 at 08:14; Status DC Sodium Chloride 1,000 ml @ 400 mls/hr Q2H30M PRN IV PATENCY; Start 01/19/20 at 08:06; Stop 01/19/20 at 20:05; Status DC Info (PHARMACY MONITORING -- do not chart) 1 each PRN DAILY PRN MC SEE COMMENTS; Start 01/19/20 at 08:15; Stop 01/19/20 at 08:14; Status DC Lactobacillus Rhamnosus (Culturelle) 1 cap BID PO Last administered on 01/20/20at 09:09; Start 01/19/20 at 21:00 Active Scripts Active Reported Amlodipine Besylate 10 Mg Tablet 10 Mg PO DAILY Metformin Hcl 1,000 Mg Tablet 1,000 Mg PO BIDWMEALS Vitals/I & O Vital Sign - Last 24 Hours 01/19/20 01/19/20 01/19/20 01/19/20 13:41 13:42 13:54 14:53 Temp 98.2 98.2 Pulse 95 95 95 81 Resp 20 B/P (MAP) 134/86 (102) 156/78 (104) Pulse Ox 92 O2 Delivery Room Air 01/19/20 01/19/20 01/19/20 01/19/20 17:17 19:00 20:00 21:18 Temp 97.3 97.3 Pulse 81 94 94 Resp 18 B/P (MAP) 156/78 101/58 (72) 101/58 Pulse Ox 93 O2 Delivery Room Air Room Air 01/19/20 01/20/20 01/20/20 01/20/20 23:16 02:41 07:00 07:50 Temp 98.4 98.5 97.7 98.4 98.5 97.7 Pulse 88 61 78 Resp 19 20 20 B/P (MAP) 108/67 (81) 128/77 (94) 120/78 (92) Pulse Ox 91 96 95 O2 Delivery Nasal Cannula Nasal Cannula Nasal Cannula Nasal Cannula O2 Flow Rate 2.0 2.0 2.0 2.0 01/20/20 01/20/20 01/20/20 01/20/20 09:10 09:10 09:10 09:10 Pulse 80 80 80 80 01/20/20 11:01 Temp 97.8 97.8 Pulse 87 Resp 20 B/P (MAP) 117/66 (83) Pulse Ox 94 O2 Delivery Nasal Cannula O2 Flow Rate 2.0 Intake and Output 01/19/20 01/19/20 01/20/20 15:00 23:00 07:00 Intake Total 240 ml 600 ml 0 ml Output Total 50 ml Balance 240 ml 550 ml 0 ml MEJIA LICONA MD Jan 20, 2020 11:29
--- NOTE | 2020-01-20 13:15 | PDOC ---
PROGRESS NOTES Subjective Subjective Denied any chest pain or shortness of breath Objective Objective Vital Signs Date Time Temp Pulse Resp B/P (MAP) Pulse Ox O2 Delivery O2 Flow Rate FiO2 01/20/20 11:01 97.8 87 20 117/66 (83) 94 Nasal Cannula 2.0 97.8 Intake and Output 01/20/20 07:00 Intake Total 840 ml Output Total 50 ml Balance 790 ml Intake Oral 840 ml Output Urine Total 50 ml # Bowel Movements 1 Physical Exam Abdomen: Normal bowel sounds, Other (Distended) Heart: Regular rate Extremities: Other General: Alert, No acute distress, mild distress Lungs: Other (Decreased air entry bases) Neck: Supple Skin: No rashes, No breakdown Assessment Assessment 1. Acute on chronic diastolic heart failure: Better compensated. 2D echo showed normal LV systolic function. Continue current medical regimen. 2. New onset ESRD/ATN: HD per nephrology team 3. HTN urgency: Better controlled 4. DM2: Per IM 5. Morbid obesity and suspecting underlying NOE 6. Hypokalemia: resolved 7. Asymptomatic SB: no further episodes Mean 60-70s 8. Protein malnutrition Plan Plan of Care Problems Medical Problems: (1) Bilateral lower extremity edema Status: Acute (2) CHF (congestive heart failure) Status: Acute (3) CRF (chronic renal failure) Status: Acute Comment Review of Relevant I have reviewed the following items reji (where applicable) has been applied. Labs Laboratory Tests Test 01/19/20 16:21 01/19/20 20:26 01/20/20 06:25 01/20/20 07:00 Glucose (Fingerstick) 169 mg/dL (70-99) 194 mg/dL (70-99) 153 mg/dL (70-99) Sodium Level 138 mmol/L (136-145) Potassium Level 3.7 mmol/L (3.5-5.1) Chloride Level 100 mmol/L (98-107) Carbon Dioxide Level 29 mmol/L (21-32) Anion Gap 9 (6-14) Blood Urea Nitrogen 31 mg/dL (8-26) Creatinine 5.3 mg/dL (0.7-1.3) Estimated GFR (Cockcroft-Gault) 13.0 Glucose Level 173 mg/dL (70-99) Calcium Level 7.5 mg/dL (8.5-10.1) Phosphorus Level 4.6 mg/dL (2.6-4.7) Albumin 1.8 g/dL (3.4-5.0) Test 01/20/20 11:14 Glucose (Fingerstick) 204 mg/dL (70-99) Medications Current Medications Amoxicillin/ Clavulanate Potassium (Augmentin 500/ 125mg) 1 tab BID PO ; Start 01/20/20 at 21:00 Lactobacillus Rhamnosus (Culturelle) 1 cap BID PO Last administered on at 09:09; Start 01/19/20 at 21:00 Vitals/I & O Vital Sign - Last 24 Hours 01/19/20 01/19/20 01/19/20 01/19/20 13:41 13:42 13:54 14:53 Temp 98.2 98.2 Pulse 95 95 95 81 Resp 20 B/P (MAP) 134/86 (102) 156/78 (104) Pulse Ox 92 O2 Delivery Room Air 01/19/20 01/19/20 01/19/20 01/19/20 17:17 19:00 20:00 21:18 Temp 97.3 97.3 Pulse 81 94 94 Resp 18 B/P (MAP) 156/78 101/58 (72) 101/58 Pulse Ox 93 O2 Delivery Room Air Room Air 01/19/20 01/20/20 01/20/20 01/20/20 23:16 02:41 07:00 07:50 Temp 98.4 98.5 97.7 98.4 98.5 97.7 Pulse 88 61 78 Resp 19 20 20 B/P (MAP) 108/67 (81) 128/77 (94) 120/78 (92) Pulse Ox 91 96 95 O2 Delivery Nasal Cannula Nasal Cannula Nasal Cannula Nasal Cannula O2 Flow Rate 2.0 2.0 2.0 2.0 01/20/20 01/20/20 01/20/20 01/20/20 09:10 09:10 09:10 09:10 Pulse 80 80 80 80 01/20/20 11:01 Temp 97.8 97.8 Pulse 87 Resp 20 B/P (MAP) 117/66 (83) Pulse Ox 94 O2 Delivery Nasal Cannula O2 Flow Rate 2.0 Intake and Output 01/19/20 01/19/20 01/20/20 15:00 23:00 07:00 Intake Total 240 ml 600 ml 0 ml Output Total 50 ml Balance 240 ml 550 ml 0 ml FERCHO REYNOSO MD Jan 20, 2020 13:15
[2020-01-20 14:51] VITALS: BP 106/58
[2020-01-20 19:01] VITALS: BP 116/86
[2020-01-20] MEDS: AMOXICILLIN/K CLAV 500/125MG TABLET. PO SCH (20:39)
[2020-01-20] MEDS: ATORVASTATIN CALCIUM 10 MG TABLET. PO SCH (20:40)
[2020-01-20 22:54] VITALS: BP 140/75
[2020-01-21 03:01] VITALS: BP 129/83
[2020-01-21 04:34] LABS: ALBUMIN 1.8 g/dL (3.4-5.0); CALCIUM 7.6 mg/dL (8.5-10.1); CREATININE 7.1 mg/dL (0.7-1.3); GFR 9.3; PHOSPHORUS 6.4 mg/dL (2.6-4.7); POTASSIUM 3.4 mmol/L (3.5-5.1)
[2020-01-21 07:00] VITALS: BP 164/96
[2020-01-21] MEDS: INSULIN LISPRO 300 UNITS/3 ML VIAL. SQ SCH ×3 (08:00→17:00)
[2020-01-21] MEDS: AMOXICILLIN/K CLAV 500/125MG TABLET. PO SCH ×2 (09:00→18:55)
[2020-01-21] MEDS: LACTOBACILLUS RHAMNOSUS GG 1 CAPSULE. PO SCH ×2 (09:00→18:55)
--- NOTE | 2020-01-21 09:44 | PDOC ---
Infectious Disease Note Subjective Subjective Comfortable daughter visiting Decrease UOP Denies F/C/SOA/N/V/D Vital Sign Vital Signs Vital Signs Date Time Temp Pulse Resp B/P (MAP) Pulse Ox O2 Delivery O2 Flow Rate FiO2 01/21/20 07:00 98.0 108 18 164/96 (118) 95 Nasal Cannula 2.0 98.0 Physical Exam PHYSICAL EXAM GENERAL: Propped up in bed, alert, relaxed appearance HEENT: Normal conjunctivae. Oral cavity, pharynx is clear. NECK: Supple. Good range of motion. LUNGS: Clear anteriorly, nonlabored HEART: S1, S2. regular ABDOMEN: Obese, soft, nontender, with positive bowel sounds, no guarding. : Freitas EXTREMITIES: No clubbing, cyanosis. Trace edema. SKIN: Warm without signs of generalized rash. NEUROLOGIC: Alert, nonfocal, answers questions appropriately Temp HDC (01/16) without signs of complications PIV Labs Lab Laboratory Tests Test 01/20/20 11:14 01/20/20 16:09 01/20/20 20:38 01/21/20 03:35 Glucose (Fingerstick) 204 mg/dL (70-99) 195 mg/dL (70-99) 175 mg/dL (70-99) Sodium Level 138 mmol/L (136-145) Potassium Level 3.4 mmol/L (3.5-5.1) Chloride Level 101 mmol/L (98-107) Carbon Dioxide Level 26 mmol/L (21-32) Anion Gap 11 (6-14) Blood Urea Nitrogen 38 mg/dL (8-26) Creatinine 7.1 mg/dL (0.7-1.3) Estimated GFR (Cockcroft-Gault) 9.3 Glucose Level 125 mg/dL (70-99) Calcium Level 7.6 mg/dL (8.5-10.1) Phosphorus Level 6.4 mg/dL (2.6-4.7) Albumin 1.8 g/dL (3.4-5.0) Test 01/21/20 07:19 Glucose (Fingerstick) 132 mg/dL (70-99) Objective Assessment Fever - better PCN allergy - has tolerated Amoxicillin Acute hypoxic resp failure w/ groundglass opacities and nodular consolidations on CT scan- COVID/mycoplasma - neg WAYNE requiring HD Morbid Obesity Acute on chronic diastolic heart failure: EF nml. DM HTN urgency Plan Plan of Care P.o. Augmentin F/u labs f/u strep/legionella antigens Awaiting renal follow-up D/w daughter at bedside D/w nursing INES ACOSTA MD Jan 21, 2020 09:44
[2020-01-21] MEDS ORDERED: IV NORMAL SALINE 1000ML BAG 1,000 ML IV PRN ×2 (09:56)
[2020-01-21] MEDS ORDERED: diphenhydrAMINE 50 MG/ML VIAL IV PRN ×2 (10:00)
[2020-01-21] MEDS ORDERED: DIALYSIS PATIENT. MC PRN (10:00)
[2020-01-21] MEDS ORDERED: ACETAMINOPHEN 500 MG TABLET PO PRN (10:00)
--- NOTE | 2020-01-21 10:05 | PDOC ---
PROGRESS NOTES Chief Complaint Chief Complaint IMPRESSION Acute on chronic systolic and diastolic heart failure RLL PNEUMONIA /some acute diastolic heart failure in addition to his morbid obesity Severe edema Hyponatremia Severe renal failure Severe noncompliance, diabetes, hypertension, congestive heart failure, rotator cuff surgery, thumb surgery, leg surgery after an infection in his leg. Incompletely characterized right thyroid nodule measuring 3.6 cm could be further evaluated with thyroid ultrasound There is a TR3 nodule of the right thyroid lobe. Based on size, nonurgent ultrasound guided FNA is suggested. d/w rn History of Present Illness History of Present Illness 01/20 Patient seen and examined NEG COVID-19 Chart reviewed Discussed with RN THYROID SONO There is a TR3 nodule of the right thyroid lobe. Based on size, nonurgent ultrasound guided FNA is suggested. CONSULT IR FOR FNA D/W RN 01/15/2020 Patient seen and examined We have now placed a Freitas to bedside drainage as he did have 318 cc of post void residual Creatinine is down to 3.8 from 3.9 His daughter is at the bedside and we discussed the case with her Discussed with RN Chart reviewed We are trying Lasix today cautiously His EF was surprisingly normal at 55% 01/14/2020 Patient seen and examined He is still edematous and short of breath Family present Discussed with RN We are going to check a post void residual and place a Freitas if necessary Chart reviewed Vitals Vitals Vital Signs Date Time Temp Pulse Resp B/P (MAP) Pulse Ox O2 Delivery O2 Flow Rate FiO2 01/21/20 07:00 98.0 108 18 164/96 (118) 95 Nasal Cannula 2.0 98.0 Physical Exam Physical Exam GENERAL: Propped up in bed, alert, relaxed appearance HEENT: Normal conjunctivae. Oral cavity, pharynx is clear. NECK: Supple. Good range of motion. LUNGS: Clear anteriorly, nonlabored HEART: S1, S2. regular ABDOMEN: Obese, soft, nontender, with positive bowel sounds, no guarding. : Freitas EXTREMITIES: No clubbing, cyanosis. Trace edema. SKIN: Warm without signs of generalized rash. NEUROLOGIC: Alert, nonfocal, answers questions appropriately Temp HDC (01/16) without signs of complications PIV General: Alert, Oriented X3, Cooperative, No acute distress, mild distress Heart: Regular rate Lungs: Crackles, Other (decrease bs) Abdomen: Normal bowel sounds, Other (Distended) Extremities: No cyanosis, Other Skin: No rashes, No breakdown Labs LABS Laboratory Tests Test 01/20/20 11:14 01/20/20 16:09 01/20/20 20:38 01/21/20 03:35 Glucose (Fingerstick) 204 mg/dL (70-99) 195 mg/dL (70-99) 175 mg/dL (70-99) Sodium Level 138 mmol/L (136-145) Potassium Level 3.4 mmol/L (3.5-5.1) Chloride Level 101 mmol/L (98-107) Carbon Dioxide Level 26 mmol/L (21-32) Anion Gap 11 (6-14) Blood Urea Nitrogen 38 mg/dL (8-26) Creatinine 7.1 mg/dL (0.7-1.3) Estimated GFR (Cockcroft-Gault) 9.3 Glucose Level 125 mg/dL (70-99) Calcium Level 7.6 mg/dL (8.5-10.1) Phosphorus Level 6.4 mg/dL (2.6-4.7) Albumin 1.8 g/dL (3.4-5.0) Test 01/21/20 07:19 Glucose (Fingerstick) 132 mg/dL (70-99) Assessment and Plan Assessmemt and Plan Problems Medical Problems: (1) Bilateral lower extremity edema Status: Acute (2) CHF (congestive heart failure) Status: Acute (3) CRF (chronic renal failure) Status: Acute Comment Review of Relevant I have reviewed the following items reji (where applicable) has been applied. Labs Laboratory Tests Test 01/19/20 13:13 01/19/20 16:21 01/19/20 20:26 01/20/20 06:25 Glucose (Fingerstick) 153 mg/dL (70-99) 169 mg/dL (70-99) 194 mg/dL (70-99) Sodium Level 138 mmol/L (136-145) Potassium Level 3.7 mmol/L (3.5-5.1) Chloride Level 100 mmol/L (98-107) Carbon Dioxide Level 29 mmol/L (21-32) Anion Gap 9 (6-14) Blood Urea Nitrogen 31 mg/dL (8-26) Creatinine 5.3 mg/dL (0.7-1.3) Estimated GFR (Cockcroft-Gault) 13.0 Glucose Level 173 mg/dL (70-99) Calcium Level 7.5 mg/dL (8.5-10.1) Phosphorus Level 4.6 mg/dL (2.6-4.7) Albumin 1.8 g/dL (3.4-5.0) Test 01/20/20 07:00 01/20/20 11:14 01/20/20 16:09 01/20/20 20:38 Glucose (Fingerstick) 153 mg/dL (70-99) 204 mg/dL (70-99) 195 mg/dL (70-99) 175 mg/dL (70-99) Test 01/21/20 03:35 01/21/20 07:19 Sodium Level 138 mmol/L (136-145) Potassium Level 3.4 mmol/L (3.5-5.1) Chloride Level 101 mmol/L (98-107) Carbon Dioxide Level 26 mmol/L (21-32) Anion Gap 11 (6-14) Blood Urea Nitrogen 38 mg/dL (8-26) Creatinine 7.1 mg/dL (0.7-1.3) Estimated GFR (Cockcroft-Gault) 9.3 Glucose Level 125 mg/dL (70-99) Calcium Level 7.6 mg/dL (8.5-10.1) Phosphorus Level 6.4 mg/dL (2.6-4.7) Albumin 1.8 g/dL (3.4-5.0) Glucose (Fingerstick) 132 mg/dL (70-99) Laboratory Tests Test 01/20/20 11:14 01/20/20 16:09 01/20/20 20:38 01/21/20 03:35 Glucose (Fingerstick) 204 mg/dL (70-99) 195 mg/dL (70-99) 175 mg/dL (70-99) Sodium Level 138 mmol/L (136-145) Potassium Level 3.4 mmol/L (3.5-5.1) Chloride Level 101 mmol/L (98-107) Carbon Dioxide Level 26 mmol/L (21-32) Anion Gap 11 (6-14) Blood Urea Nitrogen 38 mg/dL (8-26) Creatinine 7.1 mg/dL (0.7-1.3) Estimated GFR (Cockcroft-Gault) 9.3 Glucose Level 125 mg/dL (70-99) Calcium Level 7.6 mg/dL (8.5-10.1) Phosphorus Level 6.4 mg/dL (2.6-4.7) Albumin 1.8 g/dL (3.4-5.0) Test 01/21/20 07:19 Glucose (Fingerstick) 132 mg/dL (70-99) Medications Current Medications Metoprolol Tartrate (Lopressor) 25 mg BID PO Last administered on 01/15/20at 08:28; Start 01/13/20 at 21:00; Stop 01/15/20 at 13:22; Status DC Acetaminophen (Tylenol) 650 mg PRN Q6HRS PRN PO MILD PAIN / TEMP > 100.3'F Last administered on 01/16/20at 18:13; Start 01/13/20 at 20:15 Amlodipine Besylate (Norvasc) 10 mg DAILY PO Last administered on 01/20/20at 09:10; Start 01/15/20 at 09:00 Furosemide (Lasix) 40 mg 1X ONCE IVP Last administered on 01/15/20at 11:22; Start 01/15/20 at 10:15; Stop 01/15/20 at 10:16; Status DC Potassium Chloride (Klor-Con) 40 meq 1X ONCE PO Last administered on 01/15/20at 11:21; Start 01/15/20 at 10:15; Stop 01/15/20 at 10:16; Status DC Hydralazine HCl (Apresoline) 50 mg BID PO Last administered on 01/20/20at 20:40; Start 01/15/20 at 10:45 Insulin Human Lispro (HumaLOG) 0-7 UNITS TIDWMEALS SQ Last administered on 01/18/20at 16:46; Start 01/15/20 at 12:00 Dextrose (Dextrose 50%-Water Syringe) 12.5 gm PRN Q15MIN PRN IV SEE COMMENTS; Start 01/15/20 at 11:30 Carvedilol (Coreg) 12.5 mg BIDWMEALS PO Last administered on 01/20/20at 16:32; Start 01/15/20 at 17:00 Hydralazine HCl (Apresoline Inj) 10 mg PRN Q4HRS PRN IVP ELEVATED BP, SEE COMMENTS Last administered on 01/16/20at 09:35; Start 01/15/20 at 15:30 Isosorbide Mononitrate (Imdur) 60 mg DAILY PO Last administered on 01/20/20at 09:10; Start 01/16/20 at 10:00 Potassium Chloride (Klor-Con) 40 meq 1X ONCE PO Last administered on 01/16/20at 13:18; Start 01/16/20 at 11:45; Stop 01/16/20 at 11:46; Status DC Atorvastatin Calcium (Lipitor) 10 mg QHS PO Last administered on 01/20/20at 20:40; Start 01/16/20 at 21:00 Levofloxacin/ Dextrose (Levaquin Per Pharmacy) 1 each PRN DAILY PRN MC SEE COMMENTS; Start 01/16/20 at 15:45; Stop 01/17/20 at 11:20; Status DC Levofloxacin/ Dextrose 100 ml @ 100 mls/hr 1X ONCE IV Last administered on 01/16/20at 17:43; Start 01/16/20 at 17:00; Stop 01/16/20 at 17:59; Status DC Levofloxacin/ Dextrose 50 ml @ 50 mls/hr Q48H IV ; Start 01/17/20 at 17:00; Stop 01/17/20 at 11:09; Status DC Vancomycin HCl (Vanco Per Pharmacy) 1 each PRN DAILY PRN MC SEE COMMENTS; Start 01/16/20 at 19:15; Status UNV Linezolid/Dextrose 300 ml @ 300 mls/hr Q12HR IV Last administered on 01/20/20at 09:11; Start 01/16/20 at 20:00; Stop 01/20/20 at 12:02; Status DC Piperacillin Sod/ Tazobactam Sod 2.25 gm/Sodium Chloride 50 ml @ 100 mls/hr Q8HRS IV Last administered on 01/20/20at 05:47; Start 01/17/20 at 12:00; Stop 01/20/20 at 12:02; Status DC Lidocaine HCl (Buffered Lidocaine 1%) 3 ml STK-MED ONCE .ROUTE ; Start 01/17/20 at 13:07; Stop 01/17/20 at 13:07; Status DC Lidocaine HCl (Buffered Lidocaine 1%) 6 ml 1X ONCE INJ Last administered on 01/17/20at 13:33; Start 01/17/20 at 13:15; Stop 01/17/20 at 13:16; Status DC Sodium Chloride 1,000 ml @ 1,000 mls/hr Q1H PRN IV hypotension; Start 01/17/20 at 16:51; Stop 01/17/20 at 22:50; Status DC Acetaminophen (Tylenol) 500 mg 1X PRN PRN PO MILD PAIN / TEMP > 100.3'F; Start 01/17/20 at 17:00; Stop 01/18/20 at 16:59; Status DC Diphenhydramine HCl (Benadryl) 25 mg 1X PRN PRN IV ITCHING; Start 01/17/20 at 17:00; Stop 01/18/20 at 09:53; Status DC Diphenhydramine HCl (Benadryl) 25 mg 1X PRN PRN IV ITCHING; Start 01/17/20 at 17:00; Stop 01/18/20 at 09:54; Status DC Sodium Chloride 1,000 ml @ 400 mls/hr Q2H30M PRN IV PATENCY; Start 01/17/20 at 16:51; Stop 01/18/20 at 04:50; Status DC Info (PHARMACY MONITORING -- do not chart) 1 each PRN DAILY PRN MC SEE COMMENTS; Start 01/17/20 at 17:00; Stop 01/18/20 at 09:55; Status DC Sodium Chloride 1,000 ml @ 1,000 mls/hr Q1H PRN IV hypotension; Start 01/18/20 at 07:46; Stop 01/18/20 at 13:45; Status DC Diphenhydramine HCl (Benadryl) 25 mg 1X PRN PRN IV ITCHING; Start 01/18/20 at 08:00; Stop 01/19/20 at 07:59; Status DC Diphenhydramine HCl (Benadryl) 25 mg 1X PRN PRN IV ITCHING; Start 01/18/20 at 08:00; Stop 01/19/20 at 07:59; Status DC Sodium Chloride 1,000 ml @ 400 mls/hr Q2H30M PRN IV PATENCY; Start 01/18/20 at 07:46; Stop 01/18/20 at 19:45; Status DC Info (PHARMACY MONITORING -- do not chart) 1 each PRN DAILY PRN MC SEE COMMENTS; Start 01/18/20 at 08:00 Doxycycline Hyclate (Vibra-Tab) 100 mg BID PO Last administered on 01/20/20at 09:10; Start 01/18/20 at 21:00; Stop 01/20/20 at 12:02; Status DC Sodium Chloride 1,000 ml @ 1,000 mls/hr Q1H PRN IV hypotension; Start 01/19/20 at 08:06; Stop 01/19/20 at 14:05; Status DC Albumin Human 200 ml @ 200 mls/hr 1X PRN PRN IV Hypotension; Start 01/19/20 at 08:15; Stop 01/19/20 at 14:14; Status DC Acetaminophen (Tylenol) 500 mg 1X PRN PRN PO MILD PAIN / TEMP > 100.3'F; Start 01/19/20 at 08:15; Stop 01/20/20 at 08:14; Status DC Diphenhydramine HCl (Benadryl) 25 mg 1X PRN PRN IV ITCHING; Start 01/19/20 at 08:15; Stop 01/20/20 at 08:14; Status DC Diphenhydramine HCl (Benadryl) 25 mg 1X PRN PRN IV ITCHING; Start 01/19/20 at 08:15; Stop 01/20/20 at 08:14; Status DC Sodium Chloride (Normal Saline Flush) 10 ml 1X PRN PRN IV AP 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; Start 01/19/20 at 08:15; Stop 01/20/20 at 08:14; Status DC Sodium Chloride (Normal Saline Flush) 10 ml 1X PRN PRN IV IRON MELTER 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; Start 01/19/20 at 08:15; Stop 01/20/20 at 08:14; Status DC Sodium Chloride 1,000 ml @ 400 mls/hr Q2H30M PRN IV PATENCY; Start 01/19/20 at 08:06; Stop 01/19/20 at 20:05; Status DC Info (PHARMACY MONITORING -- do not chart) 1 each PRN DAILY PRN MC SEE COMMENTS; Start 01/19/20 at 08:15; Stop 01/19/20 at 08:14; Status DC Lactobacillus Rhamnosus (Culturelle) 1 cap BID PO Last administered on 01/20/20at 20:39; Start 01/19/20 at 21:00 Amoxicillin/ Clavulanate Potassium (Augmentin 500/ 125mg) 1 tab BID PO Last administered on 01/20/20at 20:39; Start 01/20/20 at 21:00 Sodium Chloride 1,000 ml @ 1,000 mls/hr Q1H PRN IV hypotension; Start 01/21/20 at 09:56; Stop 01/21/20 at 15:55; Status UNV Acetaminophen (Tylenol) 500 mg 1X PRN PRN PO MILD PAIN / TEMP > 100.3'F; Start 01/21/20 at 10:00; Stop 01/22/20 at 09:59; Status UNV Diphenhydramine HCl (Benadryl) 25 mg 1X PRN PRN IV ITCHING; Start 01/21/20 at 10:00; Stop 01/22/20 at 09:59; Status UNV Diphenhydramine HCl (Benadryl) 25 mg 1X PRN PRN IV ITCHING; Start 01/21/20 at 10:00; Stop 01/22/20 at 09:59; Status UNV Sodium Chloride 1,000 ml @ 400 mls/hr Q2H30M PRN IV PATENCY; Start 01/21/20 at 09:56; Stop 01/21/20 at 21:55; Status UNV Info (PHARMACY MONITORING -- do not chart) 1 each PRN DAILY PRN MC SEE COMMENTS; Start 01/21/20 at 10:00; Status UNV Active Scripts Active Reported Amlodipine Besylate 10 Mg Tablet 10 Mg PO DAILY Metformin Hcl 1,000 Mg Tablet 1,000 Mg PO BIDWMEALS Vitals/I & O Vital Sign - Last 24 Hours 01/20/20 01/20/20 01/20/20 01/20/20 11:01 14:51 16:32 18:53 Temp 97.8 97.8 97.8 97.8 Pulse 87 67 70 Resp 20 20 B/P (MAP) 117/66 (83) 106/58 (74) Pulse Ox 94 94 O2 Delivery Nasal Cannula Nasal Cannula Nasal Cannula O2 Flow Rate 2.0 2.0 2.0 01/20/20 01/20/20 01/20/20 01/21/20 19:01 20:40 22:54 03:01 Temp 97.8 97.7 97.8 97.8 97.7 97.8 Pulse 74 74 75 81 Resp 20 18 18 B/P (MAP) 116/86 (96) 116/86 140/75 (96) 129/83 (98) Pulse Ox 95 95 95 O2 Delivery Nasal Cannula Nasal Cannula Nasal Cannula O2 Flow Rate 2.0 2.0 2.0 01/21/20 07:00 Temp 98.0 98.0 Pulse 108 Resp 18 B/P (MAP) 164/96 (118) Pulse Ox 95 O2 Delivery Nasal Cannula O2 Flow Rate 2.0 Intake and Output 01/20/20 01/20/20 01/21/20 15:00 23:00 07:00 Intake Total 180 ml 700 ml 350 ml Output Total 150 ml 200 ml Balance 180 ml 550 ml 150 ml MEJIA LICONA MD Jan 21, 2020 10:05
[2020-01-21 10:06] VITALS: BP 143/89
--- NOTE | 2020-01-21 11:22 | PDOC ---
PULMONARY PROGRESS NOTES Subjective denies sob, on 02 2 lpm prn, has occ cough, no pain, had hd 01/16-01/17, doesnt use cpap at home need a new mask Vitals Vital Signs Date Time Temp Pulse Resp B/P (MAP) Pulse Ox O2 Delivery O2 Flow Rate FiO2 01/21/20 10:06 98.0 94 16 143/89 (107) 95 Nasal Cannula 2.0 98.0 General: Alert, No acute distress Lungs: Crackles, Other (decrease bs) Cardiovascular: S1, S2 Abdomen: Soft, Non-tender, Other (obese) Neuro Exam: Alert Extremities: Other (trace edema) Skin: Warm Labs Laboratory Tests Test 01/19/20 13:13 01/19/20 16:21 01/19/20 20:26 01/20/20 06:25 Glucose (Fingerstick) 153 mg/dL (70-99) 169 mg/dL (70-99) 194 mg/dL (70-99) Sodium Level 138 mmol/L (136-145) Potassium Level 3.7 mmol/L (3.5-5.1) Chloride Level 100 mmol/L (98-107) Carbon Dioxide Level 29 mmol/L (21-32) Anion Gap 9 (6-14) Blood Urea Nitrogen 31 mg/dL (8-26) Creatinine 5.3 mg/dL (0.7-1.3) Estimated GFR (Cockcroft-Gault) 13.0 Glucose Level 173 mg/dL (70-99) Calcium Level 7.5 mg/dL (8.5-10.1) Phosphorus Level 4.6 mg/dL (2.6-4.7) Albumin 1.8 g/dL (3.4-5.0) Test 01/20/20 07:00 01/20/20 11:14 01/20/20 16:09 01/20/20 20:38 Glucose (Fingerstick) 153 mg/dL (70-99) 204 mg/dL (70-99) 195 mg/dL (70-99) 175 mg/dL (70-99) Test 01/21/20 03:35 01/21/20 07:19 01/21/20 10:39 Sodium Level 138 mmol/L (136-145) Potassium Level 3.4 mmol/L (3.5-5.1) Chloride Level 101 mmol/L (98-107) Carbon Dioxide Level 26 mmol/L (21-32) Anion Gap 11 (6-14) Blood Urea Nitrogen 38 mg/dL (8-26) Creatinine 7.1 mg/dL (0.7-1.3) Estimated GFR (Cockcroft-Gault) 9.3 Glucose Level 125 mg/dL (70-99) Calcium Level 7.6 mg/dL (8.5-10.1) Phosphorus Level 6.4 mg/dL (2.6-4.7) Albumin 1.8 g/dL (3.4-5.0) Glucose (Fingerstick) 132 mg/dL (70-99) 114 mg/dL (70-99) Laboratory Tests Test 01/20/20 16:09 01/20/20 20:38 01/21/20 03:35 01/21/20 07:19 Glucose (Fingerstick) 195 mg/dL (70-99) 175 mg/dL (70-99) 132 mg/dL (70-99) Sodium Level 138 mmol/L (136-145) Potassium Level 3.4 mmol/L (3.5-5.1) Chloride Level 101 mmol/L (98-107) Carbon Dioxide Level 26 mmol/L (21-32) Anion Gap 11 (6-14) Blood Urea Nitrogen 38 mg/dL (8-26) Creatinine 7.1 mg/dL (0.7-1.3) Estimated GFR (Cockcroft-Gault) 9.3 Glucose Level 125 mg/dL (70-99) Calcium Level 7.6 mg/dL (8.5-10.1) Phosphorus Level 6.4 mg/dL (2.6-4.7) Albumin 1.8 g/dL (3.4-5.0) Test 01/21/20 10:39 Glucose (Fingerstick) 114 mg/dL (70-99) Medications Active Scripts Medications Dose Route/Sig Max Daily Dose Days Date Category Amlodipine Besylate 10 Mg Tablet 10 Mg PO DAILY 01/13/20 Reported Metformin Hcl 1,000 Mg Tablet 1,000 Mg PO BIDWMEALS 01/13/[address] CHEST IMPRESSION: 1. Asymmetric right lower lobe groundglass opacities and nodular consolidations, suspected to represent infection or aspiration. 2. Trace left pleural effusion. 3. Incompletely characterized right thyroid nodule measuring 3.6 cm could be further evaluated with thyroid ultrasound Electronically signed by: Adriel Lawson MD (01/18/2020 9:50 AM) [id number] Impression . 1. Acute hypoxic respiratory failure secondary to multifactorial etiologies and likely contributed by RLL PNEUMONIA /some acute diastolic heart failure in addition to his morbid obesity. 2. No significant tobacco history. 3. Underlying obstructive sleep apnea. 4. Acute kidney injury on chronic kidney disease. Plan . 1. CT chest reviewed. c/w RLL pneumonia 2. PO abx per ID 3. I do recommend to continue home CPAP, will need to contact dme for a new mask. the importance of [place] tx discussed 4. HD per renal 5. COVID-19 neg d/w RN, pt KUSUM DE JESUS MD Jan 21, 2020 11:22
--- NOTE | 2020-01-21 12:14 | PDOC ---
Renal-Progress Notes Subjective Notes Notes NO NEW COMPLAINTS History of Present Illness Hx of present illness STABLE Vitals Vitals Vital Signs Date Time Temp Pulse Resp B/P (MAP) Pulse Ox O2 Delivery O2 Flow Rate FiO2 01/21/20 10:06 98.0 94 16 143/89 (107) 95 Nasal Cannula 2.0 98.0 Weight Weight [ ] I.O. Intake and Output Intake and Output 01/21/20 07:00 Intake Total 1230 ml Output Total 350 ml Balance 880 ml Intake Oral 1230 ml Output Urine Total 350 ml # Bowel Movements 1 Labs Labs Laboratory Tests Test 01/20/20 16:09 01/20/20 20:38 01/21/20 03:35 01/21/20 07:19 Glucose (Fingerstick) 195 mg/dL (70-99) 175 mg/dL (70-99) 132 mg/dL (70-99) Sodium Level 138 mmol/L (136-145) Potassium Level 3.4 mmol/L (3.5-5.1) Chloride Level 101 mmol/L (98-107) Carbon Dioxide Level 26 mmol/L (21-32) Anion Gap 11 (6-14) Blood Urea Nitrogen 38 mg/dL (8-26) Creatinine 7.1 mg/dL (0.7-1.3) Estimated GFR (Cockcroft-Gault) 9.3 Glucose Level 125 mg/dL (70-99) Calcium Level 7.6 mg/dL (8.5-10.1) Phosphorus Level 6.4 mg/dL (2.6-4.7) Albumin 1.8 g/dL (3.4-5.0) Test 01/21/20 10:39 Glucose (Fingerstick) 114 mg/dL (70-99) Review of Systems Constitutional: yes: alert Ears/Nose/Throat: Yes: no symptom reported Eyes: Yes: no symptom reported Pulmonary: Yes no symptom reported Cardiovascular: Yes no symptom reported Gastrointestional: Yes: no symptom reported Genitourinary: Yes: no symptom reported Musculoskeletal: Yes: no symptom reported Skin: Yes no symptom reported Psychiatric/Neurological: Yes: no symptom reported Endocrine: Yes: no symptom reported Physical Exam General Appearance: no apparent distress Skin: warm Respiratory: decreased breath sounds Heart: S1S2 Abdomen: soft, bowel sounds present Genitourinary: bladder flat Neurology: alert, oriented, follow commands Assessment Assessment IMP NEW ESRD ANEMIA RLL PNEUMONIA OBESITY PLAN NILS NEEDED CONVERT TEMP TO TUNNELED HD CATHETER HD TODAY UF TO DW SW SETTING UP OP HD WILL FOLLOW DEWAYNE CRUZ MD Jan 21, 2020 12:14
--- NOTE | 2020-01-21 12:32 | NUR ---
SS following for discharge planning. SS reviewed pt chart and discussed with pt RN. Pt has dialysis chair time set up at [facility], Tuesday, Tuesday, and Tuesday at 1030. Pt first chair time on 01/23/2020, at 1000. Pt currently requiring oxygen and will need six minute walk prior to discharge. Pt having tunneled cath placed today. SS will continue to follow for discharge planning.
[2020-01-21] MEDS ORDERED: LIDOCAINE 1%/EPI 1:100,000 20 ML VIAL. ONE (13:08)
[2020-01-21] MEDS ORDERED: fentaNYL PF VIAL 100 MCG/2 ML VIAL ONE (13:27)
[2020-01-21] MEDS ORDERED: MIDAZOLAM HCL/PF 2 MG/2 ML VIAL. ONE (13:27)
[2020-01-21] MEDS ORDERED: MIDAZOLAM HCL/PF 2 MG/2 ML VIAL. IV ONE (13:30)
[2020-01-21] MEDS ORDERED: LIDOCAINE 1%/EPI 1:100,000 20 ML VIAL. INJ ONE (13:30)
[2020-01-21] MEDS ORDERED: fentaNYL PF VIAL 100 MCG/2 ML VIAL IV ONE (13:30)
[2020-01-21] MEDS ORDERED: CLINDAMYCIN 900MG PREMIX 50 ML IV ONE (13:30)
--- NOTE | 2020-01-21 13:49 | NUR ---
Patient to IR for temp to tunneled HD catheter. Patient tolerated well with no complications, vitals stable. Report called to MANOHAR Johnson on . Patient transferred to diaylsis suite.
[2020-01-21 13:50] VITALS: BP 166/102
--- NOTE | 2020-01-21 14:30 | PDOC ---
DEANNA CURTIS [employer]NATIONAL RECRUITER 01/21/20 1429: CARDIO Progress Notes Date and Time Date of Service 01/21/20 Time of Evaluation 1345 Subjective Subjective: No Chest Pain, No Palpitations, Other (SOA improved ) Vitals Vitals Vital Signs Date Time Temp Pulse Resp B/P (MAP) Pulse Ox O2 Delivery O2 Flow Rate FiO2 01/21/20 13:50 95 16 96 Nasal Cannula 2.0 01/21/20 10:06 98.0 143/89 (107) 98.0 Weight Weight [ ] Input and Output Intake and Output Intake and Output 01/21/20 07:00 Intake Total 1230 ml Output Total 350 ml Balance 880 ml Intake Oral 1230 ml Output Urine Total 350 ml # Bowel Movements 1 Laboratory Labs Laboratory Tests Test 01/20/20 16:09 01/20/20 20:38 01/21/20 03:35 01/21/20 07:19 Glucose (Fingerstick) 195 mg/dL (70-99) 175 mg/dL (70-99) 132 mg/dL (70-99) Sodium Level 138 mmol/L (136-145) Potassium Level 3.4 mmol/L (3.5-5.1) Chloride Level 101 mmol/L (98-107) Carbon Dioxide Level 26 mmol/L (21-32) Anion Gap 11 (6-14) Blood Urea Nitrogen 38 mg/dL (8-26) Creatinine 7.1 mg/dL (0.7-1.3) Estimated GFR (Cockcroft-Gault) 9.3 Glucose Level 125 mg/dL (70-99) Calcium Level 7.6 mg/dL (8.5-10.1) Phosphorus Level 6.4 mg/dL (2.6-4.7) Albumin 1.8 g/dL (3.4-5.0) Test 01/21/20 10:39 Glucose (Fingerstick) 114 mg/dL (70-99) Review of Systems Constitutional: yes: alert Ears/Nose/Throat: Yes: no symptom reported Eyes: Yes: no symptom reported Pulmonary: Yes no symptom reported Cardiovascular: Yes no symptom reported Gastrointestional: Yes: no symptom reported Genitourinary: Yes: no symptom reported Musculoskeletal: Yes: no symptom reported Skin: Yes no symptom reported Psychiatric/Neurological: Yes: no symptom reported Endocrine: Yes: no symptom reported Physical Exam HEENT: Neck Supple W Full Motion Chest: Symmetric LUNGS: Other (diminished bases) Heart: S1S2, RRR (SR without ectopies) Abdomen: Soft N/T Extremities: No Calf Tenderness, Other (1+ bilateral LE edema ) Neurology: alert, oriented, follow commands Assessment Assessment 1. Acute on chronic diastolic heart failure: Better compensated for UF with HD. Echo with preserved LV systolic function 2. CKD, now ESRD: on HD 3. HTN urgency: Better controlled 4. DM2: Per IM 5. Morbid obesity and suspecting underlying NOE 6. Hypokalemia Recommendations Continue current regimen; Coreg, Imdur, Norvasc and hydralazine Statin therapy Fluid offloading via HD Consider outpatient ischemic evaluation Supportive care Justicifation of Admission Dx: Justifications for Admission: Justification of Admission Dx: Yes Respiratory Failure: Severe Resp Distress Chronic Renal Failure: Electrolyte Abnormality MARCOS FENTON MD 01/22/20 1258: CARDIO Progress Notes Plan Plan Late entry for 01/21/2020 Patient seen and examined on dialysis unit. Agree with above nurse practitioner note. Continue blood pressure titration per nephrology. Stable from a cardiac perspective. We will consider outpatient stress testing depending on his s ymptoms after dialysis has been stabilized and fluid has been removed. DEANNA CURTIS APRN Jan 21, 2020 14:29 MARCOS FENTON MD Jan 22, 2020 12:58
--- NOTE | 2020-01-21 14:36 | RAD ---
Conversion of right internal jugular temporary dialysis catheter to a tunneled hemodialysis catheter Indication: Longer term dialysis access needed Procedure: The procedure was explained in its entirety to the patient or the patients designated inside outside sales representative by a member of the treatment team, including a discussion of the risks, benefits and commonly accepted alternatives to the procedure, as well as the expected consequences of no therapy whatsoever. Discussion of the risks included, but was not limited to, those that are most frequent and those that are rare but possibly severe or life-threatening, as well as the possibility of unforeseen complications. All elements of maximal sterile barrier technique including the use of a cap, mask, sterile gown, sterile gloves, large sterile sheet, appropriate hand hygiene, and 2% chlorhexidine for cutaneous antisepsis (or acceptable alternative antiseptic per current guidelines) were followed for this procedure. The pre-existing catheter was evaluated under fluoroscopy and found to be normal in position. A guidewire was advanced into the IVC. A 23 cm tip to cuff tunneled hemodialysis catheter was advanced from small dermatotomy, several centimeters inferior to the pre-existing catheter entry site, to the venotomy site. The pre-existing catheter was removed over the guidewire and a peel-away sheath placed. The new tunneled catheter was advanced through the peel-away sheath such that its tip was positioned in the proximal right atrium with the patient supine. The sheath was removed. The new catheter was found to flush and aspirate normally. Catheter was flushed, and secured in place. Sterile dressings were applied. No immediate complications were identified. Total fluoroscopy time: 0.6 min Dose area product: 3Gycm2 The procedure was performed under conscious sedation including continuous cardiopulmonary monitoring via dedicated sedation nurse. [id number] sedation time: 20 minutes Impression: Conversion of a right internal jugular temporary dialysis catheter to a tunneled dialysis catheter
--- NOTE | 2020-01-21 15:07 | NUR ---
removed matthews this morning at 0920 and patient voided about 1 hour later.
[2020-01-21] MEDS: CARVEDILOL 12.5 MG TABLET. PO SCH ×2 (17:00→18:52)
[2020-01-21] MEDS: ISOSORBIDE MONONITRATE ER 30 MG TAB.ER.24H PO SCH (18:53)
[2020-01-21] MEDS: amLODIPine BESYLATE 10 MG TABLET PO SCH (18:53)
[2020-01-21] MEDS: ATORVASTATIN CALCIUM 10 MG TABLET. PO SCH (18:57)
[2020-01-21 19:30] VITALS: BP 141/93
[2020-01-21 23:05] VITALS: BP 103/69
[2020-01-22 02:36] VITALS: BP 101/63
[2020-01-22 04:49] LABS: BASO # 0.1 x10^3/uL (0.0-0.2); BASO % 1 % (0-3); EOS # 0.2 x10^3/uL (0.0-0.7); EOS % 3 % (0-3); HEMATOCRIT 32.3 % (39.0-53.0); HEMOGLOBIN 10.9 g/dL (13.0-17.5); LYMPH # 1.2 x10^3/uL (1.0-4.8); LYMPH % 15 % (24-48); MEAN CORPUSCULAR HEMOGLOBIN 29 pg (25-35); MEAN CORPUSCULAR HGB CONC 34 g/dL (31-37); MEAN CORPUSCULAR VOLUME 86 fL (79-100); MONO # 0.6 x10^3/uL (0.0-1.1); MONO % 8 % (0-9); NEUT % 73 % (31-73); PLATELET COUNT 216 x10^3/uL (140-400); RED BLOOD COUNT 3.75 x10^6/uL (4.30-5.70); RED CELL DISTRIBUTION WIDTH 14.7 % (11.5-14.5); WHITE BLOOD COUNT 8.2 x10^3/uL (4.0-11.0)
[2020-01-22 05:18] LABS: ALBUMIN 1.9 g/dL (3.4-5.0); ALBUMIN/GLOBULIN RATIO 0.4 (1.0-1.7); CREATININE 5.9 mg/dL (0.7-1.3); GFR 11.5; POTASSIUM 3.9 mmol/L (3.5-5.1); TOTAL BILIRUBIN 0.3 mg/dL (0.2-1.0); TOTAL PROTEIN 6.9 g/dL (6.4-8.2)
[2020-01-22] MEDS: ACETAMINOPHEN 325 MG TABLET. PO PRN (05:56)
[2020-01-22 07:00] VITALS: BP 108/70
[2020-01-22] MEDS: INSULIN LISPRO 300 UNITS/3 ML VIAL. SQ SCH ×2 (08:00→12:12)
--- NOTE | 2020-01-22 08:09 | PDOC ---
Infectious Disease Note Subjective Subjective Comfortable daughter visiting Decrease UOP Denies F/C/SOA/N/V/D ROS ROS No nausea vomiting diarrhea fever chest pain Vital Sign Vital Signs Vital Signs Date Time Temp Pulse Resp B/P (MAP) Pulse Ox O2 Delivery O2 Flow Rate FiO2 01/22/20 07:00 97.7 85 18 108/70 (83) 98 Nasal Cannula 2.0 97.7 Physical Exam PHYSICAL EXAM GENERAL: Propped up in bed, alert, relaxed appearance HEENT: Normal conjunctivae. Oral cavity, pharynx is clear. NECK: Supple. Good range of motion. LUNGS: Clear anteriorly, nonlabored HEART: S1, S2. regular ABDOMEN: Obese, soft, nontender, with positive bowel sounds, no guarding. : [place] EXTREMITIES: No clubbing, cyanosis. Trace edema. SKIN: Warm without signs of generalized rash. NEUROLOGIC: Alert, nonfocal, answers questions appropriately Temp HDC (01/16) without signs of complications PIV Labs Lab Laboratory Tests Test 01/21/20 10:39 01/21/20 18:18 01/21/20 21:12 01/22/20 04:10 Glucose (Fingerstick) 114 mg/dL (70-99) 97 mg/dL (70-99) 178 mg/dL (70-99) White Blood Count 8.2 x10^3/uL (4.0-11.0) Red Blood Count 3.75 x10^6/uL (4.30-5.70) Hemoglobin 10.9 g/dL (13.0-17.5) Hematocrit 32.3 % (39.0-53.0) Mean Corpuscular Volume 86 fL (79-100) Mean Corpuscular Hemoglobin 29 pg (25-35) Mean Corpuscular Hemoglobin Concent 34 g/dL (31-37) Red Cell Distribution Width 14.7 % (11.5-14.5) Platelet Count 216 x10^3/uL (140-400) Neutrophils (%) (Auto) 73 % (31-73) Lymphocytes (%) (Auto) 15 % (24-48) Monocytes (%) (Auto) 8 % (0-9) Eosinophils (%) (Auto) 3 % (0-3) Basophils (%) (Auto) 1 % (0-3) Neutrophils # (Auto) 6.0 x10^3/uL (1.8-7.7) Lymphocytes # (Auto) 1.2 x10^3/uL (1.0-4.8) Monocytes # (Auto) 0.6 x10^3/uL (0.0-1.1) Eosinophils # (Auto) 0.2 x10^3/uL (0.0-0.7) Basophils # (Auto) 0.1 x10^3/uL (0.0-0.2) Sodium Level 136 mmol/L (136-145) Potassium Level 3.9 mmol/L (3.5-5.1) Chloride Level 99 mmol/L (98-107) Carbon Dioxide Level 26 mmol/L (21-32) Anion Gap 11 (6-14) Blood Urea Nitrogen 27 mg/dL (8-26) Creatinine 5.9 mg/dL (0.7-1.3) Estimated GFR (Cockcroft-Gault) 11.5 BUN/Creatinine Ratio 5 (6-20) Glucose Level 133 mg/dL (70-99) Calcium Level 8.0 mg/dL (8.5-10.1) Total Bilirubin 0.3 mg/dL (0.2-1.0) Aspartate Amino Transf (AST/SGOT) 59 U/L (15-37) Alanine Aminotransferase (ALT/SGPT) 113 U/L (16-63) Alkaline Phosphatase 105 U/L (46-116) Total Protein 6.9 g/dL (6.4-8.2) Albumin 1.9 g/dL (3.4-5.0) Albumin/Globulin Ratio 0.4 (1.0-1.7) Test 01/22/20 07:53 Glucose (Fingerstick) 134 mg/dL (70-99) Objective Assessment Fever - better PCN allergy - has tolerated Amoxicillin Acute hypoxic resp failure w/ groundglass opacities and nodular consolidations on CT scan- COVID/mycoplasma - neg WAYNE requiring HD Morbid Obesity Acute on chronic diastolic heart failure: EF nml. DM HTN urgency Plan Plan of Care P.o. Augmentin F/u labs Awaiting renal follow-up D/w daughter at bedside D/w nursing INES ACOSTA MD Jan 22, 2020 08:09
[2020-01-22] MEDS: LACTOBACILLUS RHAMNOSUS GG 1 CAPSULE. PO SCH (08:19)
[2020-01-22] MEDS: AMOXICILLIN/K CLAV 500/125MG TABLET. PO SCH (08:19)
[2020-01-22] MEDS: CARVEDILOL 12.5 MG TABLET. PO SCH (08:20)
[2020-01-22] MEDS: amLODIPine BESYLATE 10 MG TABLET PO SCH (08:22)
[2020-01-22] MEDS: ISOSORBIDE MONONITRATE ER 30 MG TAB.ER.24H PO SCH (08:24)
--- NOTE | 2020-01-22 10:15 | NUR ---
resting in bed. family departed ok to go home per Dr. Mejia. to go home on Augmentin for 5 days. still sore from dialysis cath in right shoulder area.
--- NOTE | 2020-01-22 10:52 | NUR ---
SS following up with discharge planning. SS reviewed pt chart and discussed with pt RN. Possible discharge to home today. Outpatient dialysis has been set up at [facility], ; fax [phone], Tuesday, Tuesday, and Tuesday at 1030. Six minute walk ordered to assess oxygen needs. SS will continue to follow for discharge planning.
--- NOTE | 2020-01-22 10:53 | NUR ---
attempted to wean o2 off. room air o2 sat is 87-88. reapplied o2. He was resting in bed. states that he can go home . dialysis is set up in [facility]
[2020-01-22 11:02] VITALS: BP 111/76
--- NOTE | 2020-01-22 11:12 | PDOC ---
Renal-Progress Notes Subjective Notes Notes FEELS WELL History of Present Illness Hx of present illness STABLE Vitals Vitals Vital Signs Date Time Temp Pulse Resp B/P (MAP) Pulse Ox O2 Delivery O2 Flow Rate FiO2 01/22/20 11:02 97.8 83 18 111/76 (88) 95 Nasal Cannula 2.0 97.8 Weight Weight [ ] I.O. Intake and Output Intake and Output 01/22/20 06:59 Intake Total 650 ml Output Total 1000 ml Balance -350 ml Intake Oral 650 ml Output Urine Total 1000 ml # Bowel Movements 1 Labs Labs Laboratory Tests Test 01/21/20 18:18 01/21/20 21:12 01/22/20 04:10 01/22/20 07:53 Glucose (Fingerstick) 97 mg/dL (70-99) 178 mg/dL (70-99) 134 mg/dL (70-99) White Blood Count 8.2 x10^3/uL (4.0-11.0) Red Blood Count 3.75 x10^6/uL (4.30-5.70) Hemoglobin 10.9 g/dL (13.0-17.5) Hematocrit 32.3 % (39.0-53.0) Mean Corpuscular Volume 86 fL (79-100) Mean Corpuscular Hemoglobin 29 pg (25-35) Mean Corpuscular Hemoglobin Concent 34 g/dL (31-37) Red Cell Distribution Width 14.7 % (11.5-14.5) Platelet Count 216 x10^3/uL (140-400) Neutrophils (%) (Auto) 73 % (31-73) Lymphocytes (%) (Auto) 15 % (24-48) Monocytes (%) (Auto) 8 % (0-9) Eosinophils (%) (Auto) 3 % (0-3) Basophils (%) (Auto) 1 % (0-3) Neutrophils # (Auto) 6.0 x10^3/uL (1.8-7.7) Lymphocytes # (Auto) 1.2 x10^3/uL (1.0-4.8) Monocytes # (Auto) 0.6 x10^3/uL (0.0-1.1) Eosinophils # (Auto) 0.2 x10^3/uL (0.0-0.7) Basophils # (Auto) 0.1 x10^3/uL (0.0-0.2) Sodium Level 136 mmol/L (136-145) Potassium Level 3.9 mmol/L (3.5-5.1) Chloride Level 99 mmol/L (98-107) Carbon Dioxide Level 26 mmol/L (21-32) Anion Gap 11 (6-14) Blood Urea Nitrogen 27 mg/dL (8-26) Creatinine 5.9 mg/dL (0.7-1.3) Estimated GFR (Cockcroft-Gault) 11.5 BUN/Creatinine Ratio 5 (6-20) Glucose Level 133 mg/dL (70-99) Calcium Level 8.0 mg/dL (8.5-10.1) Total Bilirubin 0.3 mg/dL (0.2-1.0) Aspartate Amino Transf (AST/SGOT) 59 U/L (15-37) Alanine Aminotransferase (ALT/SGPT) 113 U/L (16-63) Alkaline Phosphatase 105 U/L (46-116) Total Protein 6.9 g/dL (6.4-8.2) Albumin 1.9 g/dL (3.4-5.0) Albumin/Globulin Ratio 0.4 (1.0-1.7) Review of Systems Constitutional: yes: alert Ears/Nose/Throat: Yes: no symptom reported Eyes: Yes: no symptom reported Pulmonary: Yes no symptom reported Cardiovascular: Yes no symptom reported Gastrointestional: Yes: no symptom reported Genitourinary: Yes: no symptom reported Musculoskeletal: Yes: no symptom reported Skin: Yes no symptom reported Psychiatric/Neurological: Yes: no symptom reported Endocrine: Yes: no symptom reported Physical Exam General Appearance: no apparent distress Skin: warm Respiratory: decreased breath sounds Heart: S1S2 Abdomen: soft, bowel sounds present Genitourinary: bladder flat Neurology: alert, oriented, follow commands Assessment Assessment IMP NEW ESRD S/P TUNNELED HD CATHETER ANEMIA RLL PNEUMONIA OBESITY PLAN NILS NEEDED HD TOMORROW OP HD HAS BEEN SET UP D/C WHEN OK WITH OTHERS WILL FOLLOW DEWAYNE CRUZ MD Jan 22, 2020 11:12
--- NOTE | 2020-01-22 11:12 | PDOC ---
PROGRESS NOTES Chief Complaint Chief Complaint DISCHARGE DX Acute on chronic systolic and diastolic heart failure RLL PNEUMONIA /some acute diastolic heart failure in addition to his morbid obesity Severe edema Hyponatremia Severe renal failure, NOW END STAGE ON DIALYSIS Severe noncompliance, diabetes, hypertension, congestive heart failure, HX rotator cuff surgery,HX thumb surgery, Incompletely characterized right thyroid nodule measuring 3.6 cm could be further evaluated with thyroid ultrasound There is a TR3 nodule of the right thyroid lobe. Based on size, nonurgent ultrasound guided FNA is suggested. d/w rn doesnt use cpap at home need a new mask D/C PLANNING 28 MIN History of Present Illness History of Present Illness 01/21 Patient seen and examined NEG COVID-19 Chart reviewed Discussed with RN THYROID SONO There is a TR3 nodule of the right thyroid lobe. Based on size, nonurgent ul trasound guided FNA is suggested. CONSULT IR FOR FNA as out pt D/W RN d/c planning 28 min 01/15/2020 Patient seen and examined We have now placed a Freitas to bedside drainage as he did have 318 cc of post void residual Creatinine is down to 3.8 from 3.9 His daughter is at the bedside and we discussed the case with her Discussed with RN Chart reviewed We are trying Lasix today cautiously His EF was surprisingly normal at 55% 01/14/2020 Patient seen and examined He is still edematous and short of breath Family present Discussed with RN We are going to check a post void residual and place a Freitas if necessary Chart reviewed Vitals Vitals Vital Signs Date Time Temp Pulse Resp B/P (MAP) Pulse Ox O2 Delivery O2 Flow Rate FiO2 01/22/20 11:02 97.8 83 18 111/76 (88) 95 Nasal Cannula 2.0 97.8 Physical Exam Physical Exam GENERAL: Propped up in bed, alert, relaxed appearance HEENT: Normal conjunctivae. Oral cavity, pharynx is clear. NECK: Supple. Good range of motion. LUNGS: Clear anteriorly, nonlabored HEART: S1, S2. regular ABDOMEN: Obese, soft, nontender, with positive bowel sounds, no guarding. : Freitas EXTREMITIES: No clubbing, cyanosis. Trace edema. SKIN: Warm without signs of generalized rash. NEUROLOGIC: Alert, nonfocal, answers questions appropriately Temp HDC (01/16) without signs of complications PIV General: Alert, Oriented X3, Cooperative, No acute distress Heart: Regular rate, Normal S1 Lungs: Clear, Crackles, Other (decrease bs) Abdomen: Normal bowel sounds, Other (Distended) Extremities: No cyanosis, Other Skin: No rashes, No breakdown Labs LABS Laboratory Tests Test 01/21/20 18:18 01/21/20 21:12 01/22/20 04:10 01/22/20 07:53 Glucose (Fingerstick) 97 mg/dL (70-99) 178 mg/dL (70-99) 134 mg/dL (70-99) White Blood Count 8.2 x10^3/uL (4.0-11.0) Red Blood Count 3.75 x10^6/uL (4.30-5.70) Hemoglobin 10.9 g/dL (13.0-17.5) Hematocrit 32.3 % (39.0-53.0) Mean Corpuscular Volume 86 fL (79-100) Mean Corpuscular Hemoglobin 29 pg (25-35) Mean Corpuscular Hemoglobin Concent 34 g/dL (31-37) Red Cell Distribution Width 14.7 % (11.5-14.5) Platelet Count 216 x10^3/uL (140-400) Neutrophils (%) (Auto) 73 % (31-73) Lymphocytes (%) (Auto) 15 % (24-48) Monocytes (%) (Auto) 8 % (0-9) Eosinophils (%) (Auto) 3 % (0-3) Basophils (%) (Auto) 1 % (0-3) Neutrophils # (Auto) 6.0 x10^3/uL (1.8-7.7) Lymphocytes # (Auto) 1.2 x10^3/uL (1.0-4.8) Monocytes # (Auto) 0.6 x10^3/uL (0.0-1.1) Eosinophils # (Auto) 0.2 x10^3/uL (0.0-0.7) Basophils # (Auto) 0.1 x10^3/uL (0.0-0.2) Sodium Level 136 mmol/L (136-145) Potassium Level 3.9 mmol/L (3.5-5.1) Chloride Level 99 mmol/L (98-107) Carbon Dioxide Level 26 mmol/L (21-32) Anion Gap 11 (6-14) Blood Urea Nitrogen 27 mg/dL (8-26) Creatinine 5.9 mg/dL (0.7-1.3) Estimated GFR (Cockcroft-Gault) 11.5 BUN/Creatinine Ratio 5 (6-20) Glucose Level 133 mg/dL (70-99) Calcium Level 8.0 mg/dL (8.5-10.1) Total Bilirubin 0.3 mg/dL (0.2-1.0) Aspartate Amino Transf (AST/SGOT) 59 U/L (15-37) Alanine Aminotransferase (ALT/SGPT) 113 U/L (16-63) Alkaline Phosphatase 105 U/L (46-116) Total Protein 6.9 g/dL (6.4-8.2) Albumin 1.9 g/dL (3.4-5.0) Albumin/Globulin Ratio 0.4 (1.0-1.7) Assessment and Plan Assessmemt and Plan Problems Medical Problems: (1) Bilateral lower extremity edema Status: Acute (2) CHF (congestive heart failure) Status: Acute (3) CRF (chronic renal failure) Status: Acute Comment Review of Relevant I have reviewed the following items reji (where applicable) has been applied. Labs Laboratory Tests Test 01/20/20 11:14 01/20/20 16:09 01/20/20 20:38 01/21/20 03:35 Glucose (Fingerstick) 204 mg/dL (70-99) 195 mg/dL (70-99) 175 mg/dL (70-99) Sodium Level 138 mmol/L (136-145) Potassium Level 3.4 mmol/L (3.5-5.1) Chloride Level 101 mmol/L (98-107) Carbon Dioxide Level 26 mmol/L (21-32) Anion Gap 11 (6-14) Blood Urea Nitrogen 38 mg/dL (8-26) Creatinine 7.1 mg/dL (0.7-1.3) Estimated GFR (Cockcroft-Gault) 9.3 Glucose Level 125 mg/dL (70-99) Calcium Level 7.6 mg/dL (8.5-10.1) Phosphorus Level 6.4 mg/dL (2.6-4.7) Magnesium Level 2.2 mg/dL (1.8-2.4) Albumin 1.8 g/dL (3.4-5.0) Test 01/21/20 07:19 01/21/20 10:39 01/21/20 18:18 01/21/20 21:12 Glucose (Fingerstick) 132 mg/dL (70-99) 114 mg/dL (70-99) 97 mg/dL (70-99) 178 mg/dL (70-99) Test 01/22/20 04:10 01/22/20 07:53 White Blood Count 8.2 x10^3/uL (4.0-11.0) Red Blood Count 3.75 x10^6/uL (4.30-5.70) Hemoglobin 10.9 g/dL (13.0-17.5) Hematocrit 32.3 % (39.0-53.0) Mean Corpuscular Volume 86 fL (79-100) Mean Corpuscular Hemoglobin 29 pg (25-35) Mean Corpuscular Hemoglobin Concent 34 g/dL (31-37) Red Cell Distribution Width 14.7 % (11.5-14.5) Platelet Count 216 x10^3/uL (140-400) Neutrophils (%) (Auto) 73 % (31-73) Lymphocytes (%) (Auto) 15 % (24-48) Monocytes (%) (Auto) 8 % (0-9) Eosinophils (%) (Auto) 3 % (0-3) Basophils (%) (Auto) 1 % (0-3) Neutrophils # (Auto) 6.0 x10^3/uL (1.8-7.7) Lymphocytes # (Auto) 1.2 x10^3/uL (1.0-4.8) Monocytes # (Auto) 0.6 x10^3/uL (0.0-1.1) Eosinophils # (Auto) 0.2 x10^3/uL (0.0-0.7) Basophils # (Auto) 0.1 x10^3/uL (0.0-0.2) Sodium Level 136 mmol/L (136-145) Potassium Level 3.9 mmol/L (3.5-5.1) Chloride Level 99 mmol/L (98-107) Carbon Dioxide Level 26 mmol/L (21-32) Anion Gap 11 (6-14) Blood Urea Nitrogen 27 mg/dL (8-26) Creatinine 5.9 mg/dL (0.7-1.3) Estimated GFR (Cockcroft-Gault) 11.5 BUN/Creatinine Ratio 5 (6-20) Glucose Level 133 mg/dL (70-99) Calcium Level 8.0 mg/dL (8.5-10.1) Total Bilirubin 0.3 mg/dL (0.2-1.0) Aspartate Amino Transf (AST/SGOT) 59 U/L (15-37) Alanine Aminotransferase (ALT/SGPT) 113 U/L (16-63) Alkaline Phosphatase 105 U/L (46-116) Total Protein 6.9 g/dL (6.4-8.2) Albumin 1.9 g/dL (3.4-5.0) Albumin/Globulin Ratio 0.4 (1.0-1.7) Glucose (Fingerstick) 134 mg/dL (70-99) Laboratory Tests Test 01/21/20 18:18 01/21/20 21:12 01/22/20 04:10 01/22/20 07:53 Glucose (Fingerstick) 97 mg/dL (70-99) 178 mg/dL (70-99) 134 mg/dL (70-99) White Blood Count 8.2 x10^3/uL (4.0-11.0) Red Blood Count 3.75 x10^6/uL (4.30-5.70) Hemoglobin 10.9 g/dL (13.0-17.5) Hematocrit 32.3 % (39.0-53.0) Mean Corpuscular Volume 86 fL (79-100) Mean Corpuscular Hemoglobin 29 pg (25-35) Mean Corpuscular Hemoglobin Concent 34 g/dL (31-37) Red Cell Distribution Width 14.7 % (11.5-14.5) Platelet Count 216 x10^3/uL (140-400) Neutrophils (%) (Auto) 73 % (31-73) Lymphocytes (%) (Auto) 15 % (24-48) Monocytes (%) (Auto) 8 % (0-9) Eosinophils (%) (Auto) 3 % (0-3) Basophils (%) (Auto) 1 % (0-3) Neutrophils # (Auto) 6.0 x10^3/uL (1.8-7.7) Lymphocytes # (Auto) 1.2 x10^3/uL (1.0-4.8) Monocytes # (Auto) 0.6 x10^3/uL (0.0-1.1) Eosinophils # (Auto) 0.2 x10^3/uL (0.0-0.7) Basophils # (Auto) 0.1 x10^3/uL (0.0-0.2) Sodium Level 136 mmol/L (136-145) Potassium Level 3.9 mmol/L (3.5-5.1) Chloride Level 99 mmol/L (98-107) Carbon Dioxide Level 26 mmol/L (21-32) Anion Gap 11 (6-14) Blood Urea Nitrogen 27 mg/dL (8-26) Creatinine 5.9 mg/dL (0.7-1.3) Estimated GFR (Cockcroft-Gault) 11.5 BUN/Creatinine Ratio 5 (6-20) Glucose Level 133 mg/dL (70-99) Calcium Level 8.0 mg/dL (8.5-10.1) Total Bilirubin 0.3 mg/dL (0.2-1.0) Aspartate Amino Transf (AST/SGOT) 59 U/L (15-37) Alanine Aminotransferase (ALT/SGPT) 113 U/L (16-63) Alkaline Phosphatase 105 U/L (46-116) Total Protein 6.9 g/dL (6.4-8.2) Albumin 1.9 g/dL (3.4-5.0) Albumin/Globulin Ratio 0.4 (1.0-1.7) Medications Current Medications Metoprolol Tartrate (Lopressor) 25 mg BID PO Last administered on 01/15/20at 08:28; Start 01/13/20 at 21:00; Stop 01/15/20 at 13:22; Status DC Acetaminophen (Tylenol) 650 mg PRN Q6HRS PRN PO MILD PAIN / TEMP > 100.3'F Last administered on 01/22/20at 05:56; Start 01/13/20 at 20:15 Amlodipine Besylate (Norvasc) 10 mg DAILY PO Last administered on 01/22/20at 08:22; Start 01/15/20 at 09:00 Furosemide (Lasix) 40 mg 1X ONCE IVP Last administered on 01/15/20at 11:22; Start 01/15/20 at 10:15; Stop 01/15/20 at 10:16; Status DC Potassium Chloride (Klor-Con) 40 meq 1X ONCE PO Last administered on 01/15/20at 11:21; Start 01/15/20 at 10:15; Stop 01/15/20 at 10:16; Status DC Hydralazine HCl (Apresoline) 50 mg BID PO Last administered on 01/22/20at 08:21; Start 01/15/20 at 10:45 Insulin Human Lispro (HumaLOG) 0-7 UNITS TIDWMEALS SQ Last administered on 01/17at 16:46; Start 01/15/20 at 12:00 Dextrose (Dextrose 50%-Water Syringe) 12.5 gm PRN Q15MIN PRN IV SEE COMMENTS; Start 01/15/20 at 11:30 Carvedilol (Coreg) 12.5 mg BIDWMEALS PO Last administered on 01/22/20at 08:20; Start 01/15/20 at 17:00 Hydralazine HCl (Apresoline Inj) 10 mg PRN Q4HRS PRN IVP ELEVATED BP, SEE COMMENTS Last administered on 01/16/20at 09:35; Start 01/15/20 at 15:30 Isosorbide Mononitrate (Imdur) 60 mg DAILY PO Last administered on 01/22/20at 08:24; Start 01/16/20 at 10:00 Potassium Chloride (Klor-Con) 40 meq 1X ONCE PO Last administered on 01/16/20at 13:18; Start 01/16/20 at 11:45; Stop 01/16/20 at 11:46; Status DC Atorvastatin Calcium (Lipitor) 10 mg QHS PO Last administered on 01/21/20at 18:57; Start 01/16/20 at 21:00 Levofloxacin/ Dextrose (Levaquin Per Pharmacy) 1 each PRN DAILY PRN MC SEE COMMENTS; Start 01/16/20 at 15:45; Stop 01/17/20 at 11:20; Status DC Levofloxacin/ Dextrose 100 ml @ 100 mls/hr 1X ONCE IV Last administered on 01/16/20at 17:43; Start 01/16/20 at 17:00; Stop 01/16/20 at 17:59; Status DC Levofloxacin/ Dextrose 50 ml @ 50 mls/hr Q48H IV ; Start 01/17/20 at 17:00; Stop 01/17/20 at 11:09; Status DC Vancomycin HCl (Vanco Per Pharmacy) 1 each PRN DAILY PRN MC SEE COMMENTS; Start 01/16/20 at 19:15; Status UNV Linezolid/Dextrose 300 ml @ 300 mls/hr Q12HR IV Last administered on 01/20/20at 09:11; Start 01/16/20 at 20:00; Stop 01/20/20 at 12:02; Status DC Piperacillin Sod/ Tazobactam Sod 2.25 gm/Sodium Chloride 50 ml @ 100 mls/hr Q8HRS IV Last administered on 01/20/20at 05:47; Start 01/17/20 at 12:00; Stop 01/20/20 at 12:02; Status DC Lidocaine HCl (Buffered Lidocaine 1%) 3 ml STK-MED ONCE .ROUTE ; Start 01/17/20 at 13:07; Stop 01/17/20 at 13:07; Status DC Lidocaine HCl (Buffered Lidocaine 1%) 6 ml 1X ONCE INJ Last administered on 01/17/20at 13:33; Start 01/17/20 at 13:15; Stop 01/17/20 at 13:16; Status DC Sodium Chloride 1,000 ml @ 1,000 mls/hr Q1H PRN IV hypotension; Start 01/17/20 at 16:51; Stop 01/17/20 at 22:50; Status DC Acetaminophen (Tylenol) 500 mg 1X PRN PRN PO MILD PAIN / TEMP > 100.3'F; Start 01/17/20 at 17:00; Stop 01/18/20 at 16:59; Status DC Diphenhydramine HCl (Benadryl) 25 mg 1X PRN PRN IV ITCHING; Start 01/17/20 at 17:00; Stop 01/18/20 at 09:53; Status DC Diphenhydramine HCl (Benadryl) 25 mg 1X PRN PRN IV ITCHING; Start 01/17/20 at 17:00; Stop 01/18/20 at 09:54; Status DC Sodium Chloride 1,000 ml @ 400 mls/hr Q2H30M PRN IV PATENCY; Start 01/17/20 at 16:51; Stop 01/18/20 at 04:50; Status DC Info (PHARMACY MONITORING -- do not chart) 1 each PRN DAILY PRN MC SEE COMMENTS; Start 01/17/20 at 17:00; Stop 01/18/20 at 09:55; Status DC Sodium Chloride 1,000 ml @ 1,000 mls/hr Q1H PRN IV hypotension; Start 01/18/20 at 07:46; Stop 01/18/20 at 13:45; Status DC Diphenhydramine HCl (Benadryl) 25 mg 1X PRN PRN IV ITCHING; Start 01/18/20 at 08:00; Stop 01/19/20 at 07:59; Status DC Diphenhydramine HCl (Benadryl) 25 mg 1X PRN PRN IV ITCHING; Start 01/18/20 at 08:00; Stop 01/19/20 at 07:59; Status DC Sodium Chloride 1,000 ml @ 400 mls/hr Q2H30M PRN IV PATENCY; Start 01/18/20 at 07:46; Stop 01/18/20 at 19:45; Status DC Info (PHARMACY MONITORING -- do not chart) 1 each PRN DAILY PRN MC SEE COMMENTS; Start 01/18/20 at 08:00 Doxycycline Hyclate (Vibra-Tab) 100 mg BID PO Last administered on 01/20/20at 09:10; Start 01/18/20 at 21:00; Stop 01/20/20 at 12:02; Status DC Sodium Chloride 1,000 ml @ 1,000 mls/hr Q1H PRN IV hypotension; Start 01/19/20 at 08:06; Stop 01/19/20 at 14:05; Status DC Albumin Human 200 ml @ 200 mls/hr 1X PRN PRN IV Hypotension; Start 01/19/20 at 08:15; Stop 01/19/20 at 14:14; Status DC Acetaminophen (Tylenol) 500 mg 1X PRN PRN PO MILD PAIN / TEMP > 100.3'F; Start 01/19/20 at 08:15; Stop 01/20/20 at 08:14; Status DC Diphenhydramine HCl (Benadryl) 25 mg 1X PRN PRN IV ITCHING; Start 01/19/20 at 08:15; Stop 01/20/20 at 08:14; Status DC Diphenhydramine HCl (Benadryl) 25 mg 1X PRN PRN IV ITCHING; Start 01/19/20 at 08:15; Stop 01/20/20 at 08:14; Status DC Sodium Chloride (Normal Saline Flush) 10 ml 1X PRN PRN IV AP 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; Start 01/19/20 at 08:15; Stop 01/20/20 at 08:14; Status DC Sodium Chloride (Normal Saline Flush) 10 ml 1X PRN PRN IV C[employer] 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; Start 01/19/20 at 08:15; Stop 01/20/20 at 08:14; Status DC Sodium Chloride 1,000 ml @ 400 mls/hr Q2H30M PRN IV PATENCY; Start 01/19/20 at 08:06; Stop 01/19/20 at 20:05; Status DC Info (PHARMACY MONITORING -- do not chart) 1 each PRN DAILY PRN MC SEE COMMENTS; Start 01/19/20 at 08:15; Stop 01/19/20 at 08:14; Status DC Lactobacillus Rhamnosus (Culturelle) 1 cap BID PO Last administered on 01/22/20at 08:19; Start 01/19/20 at 21:00 Amoxicillin/ Clavulanate Potassium (Augmentin 500/ 125mg) 1 tab BID PO Last administered on 01/22/20at 08:19; Start 01/20/20 at 21:00 Sodium Chloride 1,000 ml @ 1,000 mls/hr Q1H PRN IV hypotension; Start 01/21/20 at 09:56; Stop 01/21/20 at 15:55; Status DC Acetaminophen (Tylenol) 500 mg 1X PRN PRN PO MILD PAIN / TEMP > 100.3'F; Start 01/21/20 at 10:00; Stop 01/22/20 at 09:59; Status DC Diphenhydramine HCl (Benadryl) 25 mg 1X PRN PRN IV ITCHING; Start 01/21/20 at 10:00; Stop 01/22/20 at 09:59; Status DC Diphenhydramine HCl (Benadryl) 25 mg 1X PRN PRN IV ITCHING; Start 01/21/20 at 10:00; Stop 01/22/20 at 09:59; Status DC Sodium Chloride 1,000 ml @ 400 mls/hr Q2H30M PRN IV PATENCY; Start 01/21/20 at 09:56; Stop 01/21/20 at 21:55; Status DC Info (PHARMACY MONITORING -- do not chart) 1 each PRN DAILY PRN MC SEE COMME NTS; Start 01/21/20 at 10:00 Lidocaine/ Epinephrine (LIDOCAINE 1%-EPI 1:100,000 Multi-Dose) 20 ml STK-MED ONCE .ROUTE ; Start 01/21/20 at 13:08; Stop 01/21/20 at 13:08; Status DC Clindamycin Phosphate 50 ml @ 100 mls/hr 1X ONCE IV Last administered on 01/21/20at 13:30; Start 01/21/20 at 13:30; Stop 01/21/20 at 13:59; Status DC Midazolam HCl (Versed) 2 mg 1X ONCE IV Last administered on 01/21/20at 13:30; Start 01/21/20 at 13:30; Stop 01/21/20 at 13:31; Status DC Fentanyl Citrate (Fentanyl 2ml Vial) 100 mcg 1X ONCE IV Last administered on 01/21/20at 13:30; Start 01/21/20 at 13:30; Stop 01/21/20 at 13:31; Status DC Lidocaine/ Epinephrine (LIDOCAINE 1%-EPI 1:100,000 Multi-Dose) 20 ml 1X ONCE INJ Last administered on 01/21/20at 13:30; Start 01/21/20 at 13:30; Stop 01/21/20 at 13:31; Status DC Midazolam HCl (Versed) 2 mg STK-MED ONCE .ROUTE ; Start 01/21/20 at 13:27; Stop 01/21/20 at 13:27; Status DC Fentanyl Citrate (Fentanyl 2ml Vial) 100 mcg STK-MED ONCE .ROUTE ; Start 01/21/20 at 13:27; Stop 01/21/20 at 13:27; Status DC Active Scripts Active Reported Amlodipine Besylate 10 Mg Tablet 10 Mg PO DAILY Metformin Hcl 1,000 Mg Tablet 1,000 Mg PO BIDWMEALS Vitals/I & O Vital Sign - Last 24 Hours 01/21/20 01/21/20 01/21/20 01/21/20 13:30 13:50 18:52 18:53 Pulse 95 126 125 Resp 14 16 B/P (MAP) 155/101 155/101 Pulse Ox 95 96 O2 Delivery Nasal Cannula Nasal Cannula O2 Flow Rate 3.0 2.0 01/21/20 01/21/20 01/21/20 01/21/20 18:53 18:56 19:21 19:30 Temp 98.9 98.9 Pulse 125 121 105 Resp 20 B/P (MAP) 155/101 155/101 141/93 (109) Pulse Ox 95 O2 Delivery Nasal Cannula Nasal Cannula O2 Flow Rate 2.0 2.0 01/21/20 01/22/20 01/22/20 01/22/20 23:05 02:36 06:59 07:00 Temp 98.2 98.0 97.7 98.2 98.0 97.7 Pulse 75 82 85 Resp 20 18 18 B/P (MAP) 103/69 (80) 101/63 (76) 108/70 (83) Pulse Ox 96 93 98 O2 Delivery Nasal Cannula Nasal Cannula Nasal Cannula O2 Flow Rate 2.0 2.0 2.0 2.0 01/22/20 01/22/20 01/22/20 01/22/20 08:20 08:21 08:22 08:24 Pulse 91 91 91 91 B/P (MAP) 123/85 123/85 123/85 123/85 01/22/20 11:02 Temp 97.8 97.8 Pulse 83 Resp 18 B/P (MAP) 111/76 (88) Pulse Ox 95 O2 Delivery Nasal Cannula O2 Flow Rate 2.0 Intake and Output 01/21/20 01/21/20 01/22/20 15:00 23:00 07:00 Intake Total 250 ml 400 ml Output Total 600 ml 300 ml 100 ml Balance -600 ml -50 ml 300 ml MEJIA LICONA MD Jan 22, 2020 11:12
--- NOTE | 2020-01-22 11:40 | PDOC ---
PULMONARY PROGRESS NOTES Subjective denies sob, on 02 2 lpm prn, has occ cough, no pain, had hd 01/16-01/17, doesnt use cpap at home need a new mask Vitals Vital Signs Date Time Temp Pulse Resp B/P (MAP) Pulse Ox O2 Delivery O2 Flow Rate FiO2 01/22/20 11:02 97.8 83 18 111/76 (88) 95 Nasal Cannula 2.0 97.8 General: Alert, No acute distress Lungs: Crackles, Other (decrease bs) Cardiovascular: S1, S2 Abdomen: Soft, Non-tender, Other (obese) Neuro Exam: Alert Extremities: Other (trace edema) Skin: Warm Labs Laboratory Tests Test 01/20/20 16:09 01/20/20 20:38 01/21/20 03:35 01/21/20 07:19 Glucose (Fingerstick) 195 mg/dL (70-99) 175 mg/dL (70-99) 132 mg/dL (70-99) Sodium Level 138 mmol/L (136-145) Potassium Level 3.4 mmol/L (3.5-5.1) Chloride Level 101 mmol/L (98-107) Carbon Dioxide Level 26 mmol/L (21-32) Anion Gap 11 (6-14) Blood Urea Nitrogen 38 mg/dL (8-26) Creatinine 7.1 mg/dL (0.7-1.3) Estimated GFR (Cockcroft-Gault) 9.3 Glucose Level 125 mg/dL (70-99) Calcium Level 7.6 mg/dL (8.5-10.1) Phosphorus Level 6.4 mg/dL (2.6-4.7) Magnesium Level 2.2 mg/dL (1.8-2.4) Albumin 1.8 g/dL (3.4-5.0) Test 01/21/20 10:39 01/21/20 18:18 01/21/20 21:12 01/22/20 04:10 Glucose (Fingerstick) 114 mg/dL (70-99) 97 mg/dL (70-99) 178 mg/dL (70-99) White Blood Count 8.2 x10^3/uL (4.0-11.0) Red Blood Count 3.75 x10^6/uL (4.30-5.70) Hemoglobin 10.9 g/dL (13.0-17.5) Hematocrit 32.3 % (39.0-53.0) Mean Corpuscular Volume 86 fL (79-100) Mean Corpuscular Hemoglobin 29 pg (25-35) Mean Corpuscular Hemoglobin Concent 34 g/dL (31-37) Red Cell Distribution Width 14.7 % (11.5-14.5) Platelet Count 216 x10^3/uL (140-400) Neutrophils (%) (Auto) 73 % (31-73) Lymphocytes (%) (Auto) 15 % (24-48) Monocytes (%) (Auto) 8 % (0-9) Eosinophils (%) (Auto) 3 % (0-3) Basophils (%) (Auto) 1 % (0-3) Neutrophils # (Auto) 6.0 x10^3/uL (1.8-7.7) Lymphocytes # (Auto) 1.2 x10^3/uL (1.0-4.8) Monocytes # (Auto) 0.6 x10^3/uL (0.0-1.1) Eosinophils # (Auto) 0.2 x10^3/uL (0.0-0.7) Basophils # (Auto) 0.1 x10^3/uL (0.0-0.2) Sodium Level 136 mmol/L (136-145) Potassium Level 3.9 mmol/L (3.5-5.1) Chloride Level 99 mmol/L (98-107) Carbon Dioxide Level 26 mmol/L (21-32) Anion Gap 11 (6-14) Blood Urea Nitrogen 27 mg/dL (8-26) Creatinine 5.9 mg/dL (0.7-1.3) Estimated GFR (Cockcroft-Gault) 11.5 BUN/Creatinine Ratio 5 (6-20) Glucose Level 133 mg/dL (70-99) Calcium Level 8.0 mg/dL (8.5-10.1) Total Bilirubin 0.3 mg/dL (0.2-1.0) Aspartate Amino Transf (AST/SGOT) 59 U/L (15-37) Alanine Aminotransferase (ALT/SGPT) 113 U/L (16-63) Alkaline Phosphatase 105 U/L (46-116) Total Protein 6.9 g/dL (6.4-8.2) Albumin 1.9 g/dL (3.4-5.0) Albumin/Globulin Ratio 0.4 (1.0-1.7) Test 01/22/20 07:53 Glucose (Fingerstick) 134 mg/dL (70-99) Laboratory Tests Test 01/21/20 18:18 01/21/20 21:12 01/22/20 04:10 01/22/20 07:53 Glucose (Fingerstick) 97 mg/dL (70-99) 178 mg/dL (70-99) 134 mg/dL (70-99) White Blood Count 8.2 x10^3/uL (4.0-11.0) Red Blood Count 3.75 x10^6/uL (4.30-5.70) Hemoglobin 10.9 g/dL (13.0-17.5) Hematocrit 32.3 % (39.0-53.0) Mean Corpuscular Volume 86 fL (79-100) Mean Corpuscular Hemoglobin 29 pg (25-35) Mean Corpuscular Hemoglobin Concent 34 g/dL (31-37) Red Cell Distribution Width 14.7 % (11.5-14.5) Platelet Count 216 x10^3/uL (140-400) Neutrophils (%) (Auto) 73 % (31-73) Lymphocytes (%) (Auto) 15 % (24-48) Monocytes (%) (Auto) 8 % (0-9) Eosinophils (%) (Auto) 3 % (0-3) Basophils (%) (Auto) 1 % (0-3) Neutrophils # (Auto) 6.0 x10^3/uL (1.8-7.7) Lymphocytes # (Auto) 1.2 x10^3/uL (1.0-4.8) Monocytes # (Auto) 0.6 x10^3/uL (0.0-1.1) Eosinophils # (Auto) 0.2 x10^3/uL (0.0-0.7) Basophils # (Auto) 0.1 x10^3/uL (0.0-0.2) Sodium Level 136 mmol/L (136-145) Potassium Level 3.9 mmol/L (3.5-5.1) Chloride Level 99 mmol/L (98-107) Carbon Dioxide Level 26 mmol/L (21-32) Anion Gap 11 (6-14) Blood Urea Nitrogen 27 mg/dL (8-26) Creatinine 5.9 mg/dL (0.7-1.3) Estimated GFR (Cockcroft-Gault) 11.5 BUN/Creatinine Ratio 5 (6-20) Glucose Level 133 mg/dL (70-99) Calcium Level 8.0 mg/dL (8.5-10.1) Total Bilirubin 0.3 mg/dL (0.2-1.0) Aspartate Amino Transf (AST/SGOT) 59 U/L (15-37) Alanine Aminotransferase (ALT/SGPT) 113 U/L (16-63) Alkaline Phosphatase 105 U/L (46-116) Total Protein 6.9 g/dL (6.4-8.2) Albumin 1.9 g/dL (3.4-5.0) Albumin/Globulin Ratio 0.4 (1.0-1.7) Medications Active Scripts Medications Dose Route/Sig Max Daily Dose Days Date Category Amlodipine Besylate 10 Mg Tablet 10 Mg PO DAILY 01/13/20 Reported Metformin Hcl 1,000 Mg Tablet 1,000 Mg PO BIDWMEALS 01/13/[address] CHEST IMPRESSION: 1. Asymmetric right lower lobe groundglass opacities and nodular consolidations, suspected to represent infection or aspiration. 2. Trace left pleural effusion. 3. Incompletely characterized right thyroid nodule measuring 3.6 cm could be further evaluated with thyroid ultrasound Electronically signed by: Adriel Lawson MD (01/18/2020 9:50 AM) [id number] Impression . 1. Acute hypoxic respiratory failure secondary to multifactorial etiologies and likely contributed by RLL PNEUMONIA /some acute diastolic heart failure in addition to his morbid obesity. 2. No significant tobacco history. 3. Underlying obstructive sleep apnea. 4. Acute kidney injury on chronic kidney disease. Plan . 1. CT chest reviewed. c/w RLL pneumonia 2. PO abx per ID 3. I do recommend to continue home CPAP, will need to contact dme for a new mask. the importance of [place] tx discussed 4. HD per renal 5. COVID-19 neg d/w RN, pt KUSUM DE JESUS MD Jan 22, 2020 11:40
--- NOTE | 2020-01-22 12:20 | PDOC ---
KATE GOMEZ RN PROGRESSIVE CARE 01/22/20 1219: CARDIO Progress Notes Date and Time Date of Service 01/22/2020 Time of Evaluation 1140 Subjective Subjective: No Chest Pain, No shortness of breath, No Palpitations Vitals Vitals Vital Signs Date Time Temp Pulse Resp B/P (MAP) Pulse Ox O2 Delivery O2 Flow Rate FiO2 01/22/20 11:02 97.8 83 18 111/76 (88) 95 Nasal Cannula 2.0 97.8 Weight Weight [ ] Input and Output Intake and Output Intake and Output 01/22/20 07:00 Intake Total 650 ml Output Total 1000 ml Balance -350 ml Intake Oral 650 ml Output Urine Total 1000 ml # Bowel Movements 1 Laboratory Labs Laboratory Tests Test 01/21/20 18:18 01/21/20 21:12 01/22/20 04:10 01/22/20 07:53 Glucose (Fingerstick) 97 mg/dL (70-99) 178 mg/dL (70-99) 134 mg/dL (70-99) White Blood Count 8.2 x10^3/uL (4.0-11.0) Red Blood Count 3.75 x10^6/uL (4.30-5.70) Hemoglobin 10.9 g/dL (13.0-17.5) Hematocrit 32.3 % (39.0-53.0) Mean Corpuscular Volume 86 fL (79-100) Mean Corpuscular Hemoglobin 29 pg (25-35) Mean Corpuscular Hemoglobin Concent 34 g/dL (31-37) Red Cell Distribution Width 14.7 % (11.5-14.5) Platelet Count 216 x10^3/uL (140-400) Neutrophils (%) (Auto) 73 % (31-73) Lymphocytes (%) (Auto) 15 % (24-48) Monocytes (%) (Auto) 8 % (0-9) Eosinophils (%) (Auto) 3 % (0-3) Basophils (%) (Auto) 1 % (0-3) Neutrophils # (Auto) 6.0 x10^3/uL (1.8-7.7) Lymphocytes # (Auto) 1.2 x10^3/uL (1.0-4.8) Monocytes # (Auto) 0.6 x10^3/uL (0.0-1.1) Eosinophils # (Auto) 0.2 x10^3/uL (0.0-0.7) Basophils # (Auto) 0.1 x10^3/uL (0.0-0.2) Sodium Level 136 mmol/L (136-145) Potassium Level 3.9 mmol/L (3.5-5.1) Chloride Level 99 mmol/L (98-107) Carbon Dioxide Level 26 mmol/L (21-32) Anion Gap 11 (6-14) Blood Urea Nitrogen 27 mg/dL (8-26) Creatinine 5.9 mg/dL (0.7-1.3) Estimated GFR (Cockcroft-Gault) 11.5 BUN/Creatinine Ratio 5 (6-20) Glucose Level 133 mg/dL (70-99) Calcium Level 8.0 mg/dL (8.5-10.1) Total Bilirubin 0.3 mg/dL (0.2-1.0) Aspartate Amino Transf (AST/SGOT) 59 U/L (15-37) Alanine Aminotransferase (ALT/SGPT) 113 U/L (16-63) Alkaline Phosphatase 105 U/L (46-116) Total Protein 6.9 g/dL (6.4-8.2) Albumin 1.9 g/dL (3.4-5.0) Albumin/Globulin Ratio 0.4 (1.0-1.7) Test 01/22/20 11:48 Glucose (Fingerstick) 193 mg/dL (70-99) Review of Systems Constitutional: yes: alert Ears/Nose/Throat: Yes: no symptom reported Eyes: Yes: no symptom reported Pulmonary: Yes no symptom reported Cardiovascular: Yes no symptom reported Gastrointestional: Yes: no symptom reported Genitourinary: Yes: no symptom reported Musculoskeletal: Yes: no symptom reported Skin: Yes no symptom reported Psychiatric/Neurological: Yes: no symptom reported Endocrine: Yes: no symptom reported Physical Exam HEENT: Neck Supple W Full Motion Chest: Symmetric LUNGS: Other (diminished bases) Heart: S1S2, RRR (SR without ectopies) Abdomen: Soft N/T Extremities: No Edema, No Calf Tenderness Neurology: alert, oriented, follow commands Assessment Assessment 1. Acute on chronic diastolic heart failure: Compensated after HD. EF nml 2. New ESRD 3. HTN urgency: controlled 4. DM2: Per IM 5. Morbid obesity and suspecting underlying NOE 6. Hypokalemia: resolved Recommendations 1. Continue current regimen; Coreg, Imdur, Norvasc and hydralazine 2. Statin therapy 3. Fluid offloading via HD 4. Consider outpatient ischemic evaluation 5. Awaiting 6 min walk for O2 need. Follow up in office. Justicifation of Admission Dx: Justifications for Admission: Justification of Admission Dx: Yes Respiratory Failure: Severe Resp Distress Chronic Renal Failure: Electrolyte Abnormality MARCOS FENTON MD 01/22/20 1656: CARDIO Progress Notes Plan Plan Patient seen and examined. Agree with above nurse practitioner note. He is doing quite well. Ambulating today without any concerns. Supportive care. He will follow-up with an outpatient stress test. KATE GOMEZ APRN Jan 22, 2020 12:19 MARCOS FENTON MD Jan 22, 2020 16:56
[2020-01-22] MEDS ORDERED: AMOX1TAB10 PO (15:27)
[2020-01-22] MEDS ORDERED: CARV12.511 PO (15:27)
[2020-01-22] MEDS ORDERED: ISOS30TA4 PO (15:27)
[2020-01-22] MEDS ORDERED: INSU100I11 SQ (15:27)
[2020-01-22] MEDS ORDERED: HYDR-2869 PO (15:27)
[2020-01-22] MEDS ORDERED: LACT1CAP19 PO (15:27)
[2020-01-22] MEDS ORDERED: ATOR10TA60 PO (15:27)
--- NOTE | 2020-01-22 15:28 | DISCH ---
DISCHARGE INSTRUCTIONS Condition on Discharge Condition on Discharge: Stable Activity After Discharge Activity Instructions for Disc: Activity as tolerated, Walk in house Bathing Instructions: Shower-keep dressing dry, No Tub Bath until see Lifting Instructions after Dis: No heavy lifting, No pulling or pushing, Do not lift >10 pounds Driving Instructions after Dis: Do not drive today Weight Bearing Status after Di: Full weight bearing Diet after Discharge Diet after Discharge: Renal Dialysis Diet Texture: Regular Liquid Texture: Thin Liquid Wound Incision Care Wound/Incision Care: Ice to area for comfort, Keep wound/cast CDI, Do not change dressing Other wound/incision instructi: do not change dressing cover with saran wrap if shower Checks after Discharge Checks after discharge: Check blood press - daily, Check blood sugar, ac/hs Contacting the [facility] after DC Call your doctor for: If your condition worsens Follow-Up Follow up with: for the Chely scan on 02/13 at 0730 Follow Up With: Neri on 02/28 at 0915 if need to reschedule [phone] Treatment/Equipment after DC Adaptive Equipment Issued: None Infusion Equipment, home use: IV Line MEJIA LICONA MD Jan 22, 2020 15:28
--- NOTE | 2020-01-22 16:24 | NUR ---
Discharge Note: JOSEFA SHANNON Discharge instructions and discharge home medications reviewed with Patient and a copy given. All questions have been answered and understanding verbalized. The following instructions and handouts were given: Augmentin, carvedilol, hydralazine, isosorbide, renal diet. Patient discharged to home with spouse via wheelchair.
--- NOTE | 2020-02-08 21:17 | PDOC3 ---
Discharge Summary Date of Admission: Jan 13, 2020 Date of Discharge: Jan 22, 2020 Follow-Up: 3-5 days Admitting Diagnosis comment: DISCHARGE DX Acute on chronic systolic and diastolic heart failure RLL PNEUMONIA /some acute diastolic heart failure in addition to his morbid obesity Severe edema Hyponatremia Severe renal failure, NOW END STAGE ON DIALYSIS Severe noncompliance, diabetes, hypertension, congestive heart failure, HX rotator cuff surgery,HX thumb surgery, Incompletely characterized right thyroid nodule measuring 3.6 cm could be further evaluated with thyroid ultrasound There is a TR3 nodule of the right thyroid lobe. Based on size, nonurgent ultrasound guided FNA is suggested. d/w rn doesnt use cpap at home need a new mask D/C PLANNING 28 MIN History of Present Illness History of Present Illness 01/21 Patient seen and examined NEG COVID-19 Chart reviewed Discussed with RN THYROID SONO There is a TR3 nodule of the right thyroid lobe. Based on size, nonurgent ultrasound guided FNA is suggested. CONSULT IR FOR FNA as out pt D/W RN d/c planning 28 min 01/15/2020 Patient seen and examined We have now placed a Freitas to bedside drainage as he did have 318 cc of post void residual Creatinine is down to 3.8 from 3.9 His daughter is at the bedside and we discussed the case with her Discussed with RN Chart reviewed We are trying Lasix today cautiously His EF was surprisingly normal at 55% 01/14/2020 Patient seen and examined He is still edematous and short of breath Family present Discussed with RN We are going to check a post void residual and place a Freitas if necessary Chart reviewed Vitals Vitals Vital Signs Date Time Temp Pulse Resp B/P (MAP) Pulse Ox O2 Delivery O2 Flow Rate FiO2 01/22/20 11:02 97.8 83 18 111/76 (88) 95 Nasal Cannula 2.0 97.8 Physical Exam Physical Exam GENERAL: Propped up in bed, alert, relaxed appearance HEENT: Normal conjunctivae. Oral cavity, pharynx is clear. NECK: Supple. Good range of motion. LUNGS: Clear anteriorly, nonlabored HEART: S1, S2. regular ABDOMEN: Obese, soft, nontender, with positive bowel sounds, no guarding. : Freitas EXTREMITIES: No clubbing, cyanosis. Trace edema. SKIN: Warm without signs of generalized rash. NEUROLOGIC: Alert, nonfocal, answers questions appropriately Temp HDC (01/16) without signs of complications PIV General: Alert, Oriented X3, Cooperative, No acute distress Heart: Regular rate, Normal S1 Lungs: Clear, Crackles, Other (decrease bs) Abdomen: Normal bowel sounds, Other (Distended) Extremities: No cyanosis, Other Skin: No rashes, No breakdown FINAL DIAGNOSIS Problems Medical Problems: (1) Bilateral lower extremity edema Status: Acute (2) CHF (congestive heart failure) Status: Acute (3) CRF (chronic renal failure) Status: Acute Brief Hospital Course Mr. Redding is a 69 old [sex] who presented with [ACUTE CHF ] CONDITION AT DISCHARGE: Improved Discharge Medications Current Medications Metoprolol Tartrate (Lopressor) 25 mg BID PO Last administered on 01/15/20at 08:28; Start 01/13/20 at 21:00; Stop 01/15/20 at 13:22; Status DC Acetaminophen (Tylenol) 650 mg PRN Q6HRS PRN PO MILD PAIN / TEMP > 100.3'F Last administered on 01/22/20at 05:56; Start 01/13/20 at 20:15; Stop 01/22/20 at 16:36; Status DC Amlodipine Besylate (Norvasc) 10 mg DAILY PO Last administered on 01/22/20at 08:22; Start 01/15/20 at 09:00; Stop 01/22/20 at 16:36; Status DC Furosemide (Lasix) 40 mg 1X ONCE IVP Last administered on 01/15/20at 11:22; Start 01/15/20 at 10:15; Stop 01/15/20 at 10:16; Status DC Potassium Chloride (Klor-Con) 40 meq 1X ONCE PO Last administered on 01/15/20at 11:21; Start 01/15/20 at 10:15; Stop 01/15/20 at 10:16; Status DC Hydralazine HCl (Apresoline) 50 mg BID PO Last administered on 01/22/20at 08:21; Start 01/15/20 at 10:45; Stop 01/22/20 at 16:36; Status DC Insulin Human Lispro (HumaLOG) 0-7 UNITS TIDWMEALS SQ Last administered on 01/22/20at 12:12; Start 01/15/20 at 12:00; Stop 01/22/20 at 16:36; Status DC Dextrose (Dextrose 50%-Water Syringe) 12.5 gm PRN Q15MIN PRN IV SEE COMMENTS; Start 01/15/20 at 11:30; Stop 01/22/20 at 16:36; Status DC Carvedilol (Coreg) 12.5 mg BIDWMEALS PO Last administered on 01/22/20at 08:20; Start 01/15/20 at 17:00; Stop 01/22/20 at 16:36; Status DC Hydralazine HCl (Apresoline Inj) 10 mg PRN Q4HRS PRN IVP ELEVATED BP, SEE COMMENTS Last administered on 01/16/20at 09:35; Start 01/15/20 at 15:30; Stop 01/22/20 at 16:36; Status DC Isosorbide Mononitrate (Imdur) 60 mg DAILY PO Last administered on 01/22/20at 08:24; Start 01/16/20 at 10:00; Stop 01/22/20 at 16:36; Status DC Potassium Chloride (Klor-Con) 40 meq 1X ONCE PO Last administered on 01/16/20at 13:18; Start 01/16/20 at 11:45; Stop 01/16/20 at 11:46; Status DC Atorvastatin Calcium (Lipitor) 10 mg QHS PO Last administered on 01/21/20at 18:57; Start 01/16/20 at 21:00; Stop 01/22/20 at 16:36; Status DC Levofloxacin/ Dextrose (Levaquin Per Pharmacy) 1 each PRN DAILY PRN MC SEE COMMENTS; Start 01/16/20 at 15:45; Stop 01/17/20 at 11:20; Status DC Levofloxacin/ Dextrose 100 ml @ 100 mls/hr 1X ONCE IV Last administered on 01/16/20at 17:43; Start 01/16/20 at 17:00; Stop 01/16/20 at 17:59; Status DC Levofloxacin/ Dextrose 50 ml @ 50 mls/hr Q48H IV ; Start 01/17/20 at 17:00; Stop 01/17/20 at 11:09; Status DC Vancomycin HCl (Vanco Per Pharmacy) 1 each PRN DAILY PRN MC SEE COMMENTS; Start 01/16/20 at 19:15; Status UNV Linezolid/Dextrose 300 ml @ 300 mls/hr Q12HR IV Last administered on 01/20/20at 09:11; Start 01/16/20 at 20:00; Stop 01/20/20 at 12:02; Status DC Piperacillin Sod/ Tazobactam Sod 2.25 gm/Sodium Chloride 50 ml @ 100 mls/hr Q8HRS IV Last administered on 01/20/20at 05:47; Start 01/17/20 at 12:00; Stop 01/20/20 at 12:02; Status DC Lidocaine HCl (Buffered Lidocaine 1%) 3 ml STK-MED ONCE .ROUTE ; Start 01/17/20 at 13:07; Stop 01/17/20 at 13:07; Status DC Lidocaine HCl (Buffered Lidocaine 1%) 6 ml 1X ONCE INJ Last administered on 01/17/20at 13:33; Start 01/17/20 at 13:15; Stop 01/17/20 at 13:16; Status DC Sodium Chloride 1,000 ml @ 1,000 mls/hr Q1H PRN IV hypotension; Start 01/17/20 at 16:51; Stop 01/17/20 at 22:50; Status DC Acetaminophen (Tylenol) 500 mg 1X PRN PRN PO MILD PAIN / TEMP > 100.3'F; Start 01/17/20 at 17:00; Stop 01/18/20 at 16:59; Status DC Diphenhydramine HCl (Benadryl) 25 mg 1X PRN PRN IV ITCHING; Start 01/17/20 at 17:00; Stop 01/18/20 at 09:53; Status DC Diphenhydramine HCl (Benadryl) 25 mg 1X PRN PRN IV ITCHING; Start 01/17/20 at 17:00; Stop 01/18/20 at 09:54; Status DC Sodium Chloride 1,000 ml @ 400 mls/hr Q2H30M PRN IV PATENCY; Start 01/17/20 at 16:51; Stop 01/18/20 at 04:50; Status DC Info (PHARMACY MONITORING -- do not chart) 1 each PRN DAILY PRN MC SEE COMMENTS; Start 01/17/20 at 17:00; Stop 01/18/20 at 09:55; Status DC Sodium Chloride 1,000 ml @ 1,000 mls/hr Q1H PRN IV hypotension; Start 01/18/20 at 07:46; Stop 01/18/20 at 13:45; Status DC Diphenhydramine HCl (Benadryl) 25 mg 1X PRN PRN IV ITCHING; Start 01/18/20 at 08:00; Stop 01/19/20 at 07:59; Status DC Diphenhydramine HCl (Benadryl) 25 mg 1X PRN PRN IV ITCHING; Start 01/18/20 at 08:00; Stop 01/19/20 at 07:59; Status DC Sodium Chloride 1,000 ml @ 400 mls/hr Q2H30M PRN IV PATENCY; Start 01/18/20 at 07:46; Stop 01/18/20 at 19:45; Status DC Info (PHARMACY MONITORING -- do not chart) 1 each PRN DAILY PRN MC SEE COMMENTS; Start 01/18/20 at 08:00; Status Cancel Doxycycline Hyclate (Vibra-Tab) 100 mg BID PO Last administered on 01/20/20at 09:10; Start 01/18/20 at 21:00; Stop 01/20/20 at 12:02; Status DC Sodium Chloride 1,000 ml @ 1,000 mls/hr Q1H PRN IV hypotension; Start 01/19/20 at 08:06; Stop 01/19/20 at 14:05; Status DC Albumin Human 200 ml @ 200 mls/hr 1X PRN PRN IV Hypotension; Start 01/19/20 at 08:15; Stop 01/19/20 at 14:14; Status DC Acetaminophen (Tylenol) 500 mg 1X PRN PRN PO MILD PAIN / TEMP > 100.3'F; Start 01/19/20 at 08:15; Stop 01/20/20 at 08:14; Status DC Diphenhydramine HCl (Benadryl) 25 mg 1X PRN PRN IV ITCHING; Start 01/19/20 at 08:15; Stop 01/20/20 at 08:14; Status DC Diphenhydramine HCl (Benadryl) 25 mg 1X PRN PRN IV ITCHING; Start 01/19/20 at 08:15; Stop 01/20/20 at 08:14; Status DC Sodium Chloride (Normal Saline Flush) 10 ml 1X PRN PRN IV AP 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; Start 01/19/20 at 08:15; Stop 01/20/20 at 08:14; Status DC Sodium Chloride (Normal Saline Flush) 10 ml 1X PRN PRN IV RIDING COACH 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; Start 01/19/20 at 08:15; Stop 01/20/20 at 08:14; Status DC Sodium Chloride 1,000 ml @ 400 mls/hr Q2H30M PRN IV PATENCY; Start 01/19/20 at 08:06; Stop 01/19/20 at 20:05; Status DC Info (PHARMACY MONITORING -- do not chart) 1 each PRN DAILY PRN MC SEE COMMENTS; Start 01/19/20 at 08:15; Stop 01/19/20 at 08:14; Status DC Lactobacillus Rhamnosus (Culturelle) 1 cap BID PO Last administered on 01/22/20at 08:19; Start 01/19/20 at 21:00; Stop 01/22/20 at 16:36; Status DC Amoxicillin/ Clavulanate Potassium (Augmentin 500/ 125mg) 1 tab BID PO Last administered on 01/22/20at 08:19; Start 01/20/20 at 21:00; Stop 01/22/20 at 16:36; Status DC Sodium Chloride 1,000 ml @ 1,000 mls/hr Q1H PRN IV hypotension; Start 01/21/20 at 09:56; Stop 01/21/20 at 15:55; Status DC Acetaminophen (Tylenol) 500 mg 1X PRN PRN PO MILD PAIN / TEMP > 100.3'F; Start 01/21/20 at 10:00; Stop 01/22/20 at 09:59; Status DC Diphenhydramine HCl (Benadryl) 25 mg 1X PRN PRN IV ITCHING; Start 01/21/20 at 10:00; Stop 01/22/20 at 09:59; Status DC Diphenhydramine HCl (Benadryl) 25 mg 1X PRN PRN IV ITCHING; Start 01/21/20 at 10:00; Stop 01/22/20 at 09:59; Status DC Sodium Chloride 1,000 ml @ 400 mls/hr Q2H30M PRN IV PATENCY; Start 01/21/20 at 09:56; Stop 01/21/20 at 21:55; Status DC Info (PHARMACY MONITORING -- do not chart) 1 each PRN DAILY PRN MC SEE COMMENTS; Start 01/21/20 at 10:00; Stop 01/22/20 at 16:36; Status DC Lidocaine/ Epinephrine (LIDOCAINE 1%-EPI 1:100,000 Multi-Dose) 20 ml STK-MED ONCE .ROUTE ; Start 01/21/20 at 13:08; Stop 01/21/20 at 13:08; Status DC Clindamycin Phosphate 50 ml @ 100 mls/hr 1X ONCE IV Last administered on 01/21/20at 13:30; Start 01/21/20 at 13:30; Stop 01/21/20 at 13:59; Status DC Midazolam HCl (Versed) 2 mg 1X ONCE IV Last administered on 01/21/20at 13:30; Start 01/21/20 at 13:30; Stop 01/21/20 at 13:31; Status DC Fentanyl Citrate (Fentanyl 2ml Vial) 100 mcg 1X ONCE IV Last administered on 01/21/20at 13:30; Start 01/21/20 at 13:30; Stop 01/21/20 at 13:31; Status DC Lidocaine/ Epinephrine (LIDOCAINE 1%-EPI 1:100,000 Multi-Dose) 20 ml 1X ONCE INJ Last administered on 01/21/20at 13:30; Start 01/21/20 at 13:30; Stop 01/21/20 at 13:31; Status DC Midazolam HCl (Versed) 2 mg STK-MED ONCE .ROUTE ; Start 01/21/20 at 13:27; Stop 01/21/20 at 13:27; Status DC Fentanyl Citrate (Fentanyl 2ml Vial) 100 mcg STK-MED ONCE .ROUTE ; Start 01/21/20 at 13:27; Stop 01/21/20 at 13:27; Status DC Active Scripts Active Humalog (Insulin Lispro) 100 Unit/1 Ml Insuln.pen 0 Units SQ TIDWMEALS 30 Days Culturelle (Lactobacillus Rhamnosus Gg) 1 Each Cap.sprink 1 Cap PO BID 30 Days Carvedilol (Carvedilol) 12.5 Mg Tablet 12.5 Mg PO BIDWMEALS 30 Days Isosorbide Mononitrate Er (Isosorbide Mononitrate) 30 Mg Tab.er.24h 60 Mg PO DAILY 30 Days Hydralazine Hcl 50 Mg Tablet 50 Mg PO BID 30 Days Atorvastatin Calcium 10 Mg Tablet 10 Mg PO QHS 30 Days Amox Tr-K Clv 500-125 Mg Tab (Amoxicillin/Potassium Clav) 1 Each Tablet 1 Tab PO BID 10 Days Reported Amlodipine Besylate 10 Mg Tablet 10 Mg PO DAILY Allergies Allergies Coded Allergies Type Severity Reaction Last Updated Verified Penicillins Allergy Severe 01/22/20 Yes Disposition/Orders: D/C to Home Justicifation of Admission Dx: Justifications for Admission: Justification of Admission Dx: Yes Respiratory Failure: Severe Resp Distress Chronic Renal Failure: Electrolyte Abnormality MEJIA LICONA MD Feb 08, 2020 21:17
== END 2020-01-22 16:25 | disposition home or self-care (01) | DRG 673 ==
LOC: ER 11:20 → 6 SOUTH 13:24 → 2 SOUTH 01-18 07:30 → 2 NORTH 01-20 18:33
PROVIDERS: ADMIT Internal Medicine; ATTEND Internal Medicine
PROC: 02HV33Z Insertion of Infusion Device into Superior Vena Cava, Percutaneous Approach (ICD-10-PCS; 2020-01-17)
PROC: B548ZZA Ultrasonography of Superior Vena Cava, Guidance (ICD-10-PCS; 2020-01-17)
PROC: 5A1D70Z Performance of Urinary Filtration, Intermittent, Less than 6 Hours Per Day (ICD-10-PCS; 2020-01-17)
PROC: 5A1D70Z Performance of Urinary Filtration, Intermittent, Less than 6 Hours Per Day (ICD-10-PCS; 2020-01-18)
PROC: 5A1D70Z Performance of Urinary Filtration, Intermittent, Less than 6 Hours Per Day (ICD-10-PCS; 2020-01-19)
PROC: 0JH63XZ Insertion of Tunneled Vascular Access Device into Chest Subcutaneous Tissue and Fascia, Percutaneous Approach (ICD-10-PCS; principal; 2020-01-21)
PROC: 02PYX3Z Removal of Infusion Device from Great Vessel, External Approach (ICD-10-PCS; 2020-01-21)
PROC: 02H633Z Insertion of Infusion Device into Right Atrium, Percutaneous Approach (ICD-10-PCS; 2020-01-21)
PROC: B5181ZA Fluoroscopy of Superior Vena Cava using Low Osmolar Contrast, Guidance (ICD-10-PCS; 2020-01-21)
PROC: B548ZZA Ultrasonography of Superior Vena Cava, Guidance (ICD-10-PCS; 2020-01-21)
PROC: 5A1D70Z Performance of Urinary Filtration, Intermittent, Less than 6 Hours Per Day (ICD-10-PCS; 2020-01-21)
DX: N17.0 Acute kidney failure with tubular necrosis (principal); I50.43 Acute on chronic combined systolic (congestive) and diastolic (congestive) heart failure; J96.01 Acute respiratory failure with hypoxia; J18.9 Pneumonia, unspecified organism; E87.1 Hypo-osmolality and hyponatremia; E46 Unspecified protein-calorie malnutrition; I13.2 Hypertensive heart and chronic kidney disease with heart failure and with stage 5 chronic kidney disease, or end stage renal disease; D64.9 Anemia, unspecified; E04.1 Nontoxic single thyroid nodule; E11.22 Type 2 diabetes mellitus with diabetic chronic kidney disease; E66.01 Morbid (severe) obesity due to excess calories; E87.6 Hypokalemia; G47.33 Obstructive sleep apnea (adult) (pediatric); I16.0 Hypertensive urgency; K59.00 Constipation, unspecified; N18.6 End stage renal disease; Z68.37 Body mass index [BMI] 37.0-37.9, adult; Z83.3 Family history of diabetes mellitus; Z88.0 Allergy status to penicillin; Z91.11 Patient's noncompliance with dietary regimen; Z91.14 Patient's other noncompliance with medication regimen; Z91.19 Patient's noncompliance with other medical treatment and regimen; Z99.2 Dependence on renal dialysis; Z20.828 Contact with and (suspected) exposure to other viral communicable diseases; Z79.899 Other long term (current) drug therapy; Z68.34 Body mass index [BMI] 34.0-34.9, adult
CPT/HCPCS: 36415; 36556; 36581; 36600; 71045; 71250; 76536; 76770; 76937; 77001; 80053; 80061; 80069; 81001; 82570; 82805; 82962; 83605; 83690; 83735; 83880; 84156; 84443; 84484; 85025; 85610; 85730; 86335; 86704; 86706; 86738; 87340; 87449; 93005; 93306; 93970; 94618; 99152; 99285; C1750; C1769; C1892; J0360; J1815; J1940; J1956; J2020; J2250; J2543; J3010; J3490; G0378; U0003-CS

== ENCOUNTER 2020-01-23 12:23 | Emergency (ER) | payer MEDICARE ==
[~2020-01-23] VITALS: Ht 177.8 cm; Wt 118.0 kg
[~2020-01-23 12:23] MED LIST changes: +AMLO10TA8 PO; +AMOX1TAB10 PO; +ATOR10TA60 PO; +CARV12.511 PO; +HYDR-2869 PO; +INSU100I11 SQ; +ISOS30TA4 PO; +LACT1CAP19 PO; +METF10007 PO
[2020-01-23 13:29] LABS: BASO # 0.1 x10^3/uL (0.0-0.2); BASO % 1 % (0-3); EOS # 0.2 x10^3/uL (0.0-0.7); EOS % 2 % (0-3); HEMATOCRIT 34.5 % (39.0-53.0); HEMOGLOBIN 11.6 g/dL (13.0-17.5); LYMPH % 13 % (24-48); MEAN CORPUSCULAR HEMOGLOBIN 29 pg (25-35); MEAN CORPUSCULAR HGB CONC 34 g/dL (31-37); MEAN CORPUSCULAR VOLUME 87 fL (79-100); MONO # 0.6 x10^3/uL (0.0-1.1); MONO % 7 % (0-9); NEUT # 6.1 x10^3/uL (1.8-7.7); NEUT % 77 % (31-73); PLATELET COUNT 224 x10^3/uL (140-400); RED BLOOD COUNT 3.95 x10^6/uL (4.30-5.70); RED CELL DISTRIBUTION WIDTH 14.8 % (11.5-14.5)
[2020-01-23 13:41] LABS: CALCIUM 8.1 mg/dL (8.5-10.1); CREATININE 9.2 mg/dL (0.7-1.3); GFR 6.9; POTASSIUM 4.3 mmol/L (3.5-5.1)
[2020-01-23 13:56] LABS: ALBUMIN 2.2 g/dL (3.4-5.0); ALBUMIN/GLOBULIN RATIO 0.4 (1.0-1.7); TOTAL BILIRUBIN 0.3 mg/dL (0.2-1.0); TOTAL PROTEIN 7.6 g/dL (6.4-8.2)
--- NOTE | 2020-01-23 14:30 | PHYS DOC ---
Past Medical History Past Medical History: CHF, Diabetes-Type II, Hypertension, Renal Failure Past Surgical History: No Surgical History Additional Past Surgical Histo: ROTATOR CUFF, THUMB, leg infection Smoking Status: Never Smoker Alcohol Use: Occasionally Drug Use: None General Adult EDM: Chief Complaint: ALTERED MENTAL STATUS HPI: HPI: Patient is a 69 year old male presenting to the ED with a chief complaint of altered mental status. EMS state that patient was at his dialysis appointment but had alteration in mental status and was sent to the ER. Patient was just discharged from the hospital yesterday and this was his first dialysis appointment. Patient denies chest pain, shortness of breath, nausea or vomiting. Patient is not sure why he was sent to the ER. Patient has alert and oriented and answering questions appropriately. Patient also denies fever, chills. Review of Systems: Review of Systems: Constitutional: Denies fever or chills. [] Eyes: Denies change in visual acuity. [] HENT: Denies nasal congestion or sore throat. [] Respiratory: Denies cough or shortness of breath. [] Cardiovascular: Denies chest pain or edema. [] GI: Denies abdominal pain, nausea, vomiting, bloody stools or diarrhea. [] Neurologic: Denies headache, focal weakness or sensory changes. [] Heart Score: Risk Factors: Risk Factors: DM, Current or recent (<one month) smoker, HTN, HLP, family history of CAD, obesity. Risk Scores: Score 0 - 3: 2.5% MACE over next 6 weeks - Discharge Home Score 4 - 6: 20.3% MACE over next 6 weeks - Admit for Clinical Observation Score 7 - 10: 72.7% MACE over next 6 weeks - Early Invasive Strategies Allergies: Allergies: Allergies Coded Allergies Type Severity Reaction Last Updated Verified Penicillins Allergy Severe 01/22/20 Yes Physical Exam: PE: Constitutional: Well developed, well nourished, no acute distress, non-toxic appearance. [] HENT: Normocephalic, atraumatic Eyes: EOMI Neck: Normal range of motion, Supple Cardiovascular:Heart rate regular rhythm Lungs & Thorax: Bilateral rhonchi [] Abdomen: Bowel sounds normal, soft, no tenderness Extremities: No tenderness, ROM intact Neurologic: Alert and oriented X 3 Current Patient Data: Labs: Laboratory Tests Test 01/23/20 13:18 White Blood Count 8.0 x10^3/uL (4.0-11.0) Red Blood Count 3.95 x10^6/uL (4.30-5.70) L Hemoglobin 11.6 g/dL (13.0-17.5) L Hematocrit 34.5 % (39.0-53.0) L Mean Corpuscular Volume 87 fL (79-100) Mean Corpuscular Hemoglobin 29 pg (25-35) Mean Corpuscular Hemoglobin Concent 34 g/dL (31-37) Red Cell Distribution Width 14.8 % (11.5-14.5) H Platelet Count 224 x10^3/uL (140-400) Neutrophils (%) (Auto) 77 % (31-73) H Lymphocytes (%) (Auto) 13 % (24-48) L Monocytes (%) (Auto) 7 % (0-9) Eosinophils (%) (Auto) 2 % (0-3) Basophils (%) (Auto) 1 % (0-3) Neutrophils # (Auto) 6.1 x10^3/uL (1.8-7.7) Lymphocytes # (Auto) 1.0 x10^3/uL (1.0-4.8) Monocytes # (Auto) 0.6 x10^3/uL (0.0-1.1) Eosinophils # (Auto) 0.2 x10^3/uL (0.0-0.7) Basophils # (Auto) 0.1 x10^3/uL (0.0-0.2) Sodium Level 132 mmol/L (136-145) L Potassium Level 4.3 mmol/L (3.5-5.1) Chloride Level 94 mmol/L (98-107) L Carbon Dioxide Level 24 mmol/L (21-32) Anion Gap 14 (6-14) Blood Urea Nitrogen 54 mg/dL (8-26) H Creatinine 9.2 mg/dL (0.7-1.3) H Estimated GFR (Cockcroft-Gault) 6.9 BUN/Creatinine Ratio 6 (6-20) Glucose Level 214 mg/dL (70-99) H Lactic Acid Level 1.4 mmol/L (0.4-2.0) Calcium Level 8.1 mg/dL (8.5-10.1) L Total Bilirubin 0.3 mg/dL (0.2-1.0) Aspartate Amino Transferase (AST) 44 U/L (15-37) H Alanine Aminotransferase (ALT) 127 U/L (16-63) H Alkaline Phosphatase 98 U/L (46-116) Troponin I Quantitative < 0.017 ng/mL (0.000-0.055) PQ-Wap-S-Type Natriuretic Peptide 1270 pg/mL (0-124) H Total Protein 7.6 g/dL (6.4-8.2) Albumin 2.2 g/dL (3.4-5.0) L Albumin/Globulin Ratio 0.4 (1.0-1.7) L Laboratory Tests 01/23/20 13:18 Laboratory Tests 01/23/20 13:18 Vital Signs: Vital Signs Date Time Temp Pulse Resp B/P (MAP) Pulse Ox O2 Delivery O2 Flow Rate FiO2 01/23/20 12:30 98.4 64 20 118/67 (84) 95 Room Air 98.4 EKG: EKG: [] Radiology/Procedures: Radiology/Procedures: [] Course & Med Decision Making: Course & Med Decision Making Pertinent Labs reviewed. (See chart for details) Ordered labs. Labs are within normal limits. We have called dialysis to see if they can run him today. Awaiting callback from dialysis. Patient is otherwise stable to be discharged from the ER. Patient is alert and oriented x3. We have called dialysis dialysis state that they are not able to take him today as they have emergency in the water issues. They state that they can dialyze him tomorrow. We have discussed this with patient and his is coming to pick him up from the ER. Demarco Disclaimer: Demarco Disclaimer: This electronic medical record was generated, in whole or in part, using a voice recognition dictation system. Departure Departure Impression: Primary Impression: CRF (chronic renal failure) Disposition: 01 HOME, SELF-CARE Condition: GOOD Referrals: JENNIFER NEGRETE (PCP) Patient Instructions: Dialysis Additional Instructions: Discussed results and plan of care with patient. Patient is instructed to follow up with PCP in one to 2 days. Appropriate discharge instructions given to patient to return to the ED or to seek immediate medical evaluation. Patient is instructed to return to the ED if symptoms worsen or if any concerns. Justicifation of Admission Dx: Justifications for Admission: Justification of Admission Dx: No Respiratory Failure: Severe Resp Distress Chronic Renal Failure: Electrolyte Abnormality VERNON CARVAJAL DO Jan 23, 2020 14:30
[2020-01-23 15:27] VITALS: BP 149/80
== END 2020-01-23 15:45 | disposition home or self-care (01) ==
LOC: ER 12:23
DX: I13.0 Hypertensive heart and chronic kidney disease with heart failure and stage 1 through stage 4 chronic kidney disease, or unspecified chronic kidney disease (principal); N18.9 Chronic kidney disease, unspecified; I50.9 Heart failure, unspecified; E11.22 Type 2 diabetes mellitus with diabetic chronic kidney disease; R41.82 Altered mental status, unspecified; Z88.0 Allergy status to penicillin
CPT/HCPCS: 36415; 80053; 83605; 83880; 84484; 85025; 99283

== ENCOUNTER → 2020-05-13 | Outpatient (CLI) | payer MEDICARE ==
[~2020-05-13] MED LIST changes: +AMLO-187 PO; -AMLO10TA8 PO; +ZOLPIDEM 5 MG TABLET. PO ONE
--- NOTE | 2020-05-14 19:53 | SLEEP ---
DATE OF STUDY: 05/13/2020 SLEEP STUDY REFERRING PHYSICIAN: Harriet Del Real APRN The patient is a 70-year-old who weighs 250 pounds with a BMI of 36. The patient's [place] score was 14. The patient had a history of sleep apnea diagnosed in 2002. The patient needs a new machine. As a result, another study was ordered. During the night study, the patient spent 460 minutes in bed and slept for 374 minutes with a sleep efficiency of 81%. Sleep latency was 10 minutes with a REM latency of 114 minutes. Sleep architecture showed increased stage 1 sleep, normal stage 2 sleep, increased slow wave and reduced REM sleep. During the initial diagnostic portion of the study, the patient slept for 79 minutes. During that time, there was 1 obstructive apnea, 100 mixed apneas, and no central apneas. There were 11 hypopneas. The patient's AHI was 86 per hour with a supine AHI of 91 per hour. REM sleep was not seen during the diagnostic portion. EKG monitoring revealed an average heart rate of 77 beats per minute, no sustained arrhythmias observed. Nocturnal oximetry study during the diagnostic portion revealed a mean oxygen saturation of 93% with the lowest of 82%. 18% of time oxygen saturation remained between 80% and 89%. No PLMs seen. The patient met the criteria for CPAP initiation. It was started at 5 cm water and titrated up to 19 cm water. At the final pressure, the patient slept for 54 minutes. The patient had supine sleep throughout. The patient had REM sleep as well. The patient's AHI was reduced to 7 per hour and was mostly related to treatment emergent central apneas. Oxygen saturation remained above 94%. The patient used a medium-sized full face mask. IMPRESSION: 1. Severe obstructive sleep apnea at an apnea-hypopnea index of 86 per hour. Majority of the apneas were mixed. 2. Nocturnal hypoxia secondary to obstructive sleep apnea, but resolved with CPAP. 3. No significant periodic limb movements. RECOMMENDATIONS: 1. CPAP at 19 cm water should be used on a nightly basis. 2. Follow up in 4-6 weeks to assess compliance with CPAP and to document clinical improvement. 3. Weight loss is strongly advised. 4. Avoid [employer] depressants. 5. Cautioned regarding driving until symptoms of sleep apnea resolve with the use of CPAP. KUSUM DE JESUS MD DR: LIT/aron JOB#: [id number] / [id number] Harriet Carrera APRN, STEPHANIE DO
== END ==
LOC: SLPLAB 18:51
PROVIDERS: ATTEND Internal Medicine Critical Care Medicine
DX: G47.33 Obstructive sleep apnea (adult) (pediatric) (principal); G47.34 Idiopathic sleep related nonobstructive alveolar hypoventilation
CPT/HCPCS: 95810

== ENCOUNTER → 2020-05-15 | Day surgery (SDC) | payer MEDICARE ==
[~2020-05-15] VITALS: Ht 175.3 cm; Wt 113.5 kg
[~2020-05-15] MED LIST changes: +ACETAMINOPHEN 500 MG TABLET PO PRN; +BUPIVACAINE MPF 0.25% 30 ML VIAL. ONE; +CALC667T4 PO; +CARV3.1210 PO; +DEXAMETHASONE SOD PHOS 4 MG/ML VIAL ONE; +ESMOLOL 100 MG/10 ML VIAL. IVP ONE; +FAMOTIDINE 20 MG/2 ML VIAL ONE; +GLYCOPYRROLATE 1 MG/5 ML VIAL. ONE; +HEPARIN SODIUM 1,000 UNIT in IV NORMAL SALINE 100ML 100 ML IRR ONE; +HYDROcodone/APAP 5/325MG 1 TAB TABLET PO ONE; +HYDROmorphone 2 MG/ML VIAL IV PRN; +INSU100V13 SQ; +INSULIN LISPRO 100 UNIT/ML 3ML VIAL for OP,RR ONLY. SQ ONE; +INSULIN LISPRO 100 UNIT/ML 3ML VIAL for OP,RR ONLY. SQ PRN; +IV NORMAL SALINE 1000ML BAG 1,000 ML IV SCH; +IV RINGERS,LACTATED 1000ML 1,000 ML IV SCH; +LIDOCAINE 1% PF 2 ML VIAL. ID PRN; +LIDOCAINE 2% PF 5 ML VIAL. ONE; +MORPHINE SULFATE 2 MG/ML VIAL. IV PRN; +NEOSTIGMINE METHYLSULFATE 5 MG/5 ML SYRINGE. ONE; +ONDANSETRON PF 4 MG/2 ML VIAL. IV PRN; +ONDANSETRON PF 4 MG/2 ML VIAL. ONE; +PROCHLORPERAZINE 10 MG/2 ML VIAL. IV PRN; +PROPOFOL 10 MG/ML (20ML) VIAL. IV ONE; +ROCURONIUM 50 MG/5 ML VIAL. ONE; -ZOLPIDEM 5 MG TABLET. PO ONE; +fentaNYL PF VIAL 100 MCG/2 ML VIAL IV PRN; +fentaNYL PF VIAL 100 MCG/2 ML VIAL ONE
[2020-05-15 08:32] LABS: CALCIUM 8.9 mg/dL (8.5-10.1); CREATININE 7.3 mg/dL (0.7-1.3); POTASSIUM 3.5 mmol/L (3.5-5.1)
--- NOTE | 2020-05-15 09:59 | PDOC4 ---
Operative Note Operative Note Date: 1014 at 09 56 Preoperative diagnosis: Chronic renal failure Postoperative diagnosis: Same Procedure: Placement of peritoneal dialysis catheter laparoscopically Surgeon: Andrea Specimen: None Dictation: Patient is 70-year-old male with chronic renal failure is needing dialysis preferring peritoneal dialysis. Procedure of laparoscopic peritoneal dialysis catheter placement was explained to the patient detail was benefits were also discussed including bleeding infection alternatives to this procedure also discussed with the patient who seemed to understand and gave both verbal and written consent had procedure performed. Patient was taken to the operating room placed in the supine position general anesthesia was initiated once patient was sleeping in the bed his abdomen was prepped and draped usual sterile fashion using ChloraPrep area just above the pubic symphysis was marked and the template for the PD catheter was used to reji the entrance and exit areas for the PD catheter. A 5 mm nonbladed trocar was used to access the abdominal cavity with the left upper quadrant under direct visualization pneumoperitoneum was achieved camera was placed within the abdomen which was inspected no other abnormalities were noted a area that was marked with the template was injected quarter percent Marcaine with epinephrine incision of a low blade scalpel carried down through the subcutaneous tissues electrocautery right hemostasis down to the rectus s vel a trocar was then placed under visualization through the rectus sheath at a 45 degree angle angling towards the pelvis once this was in the intra- abdominal cavity as checked by the laparoscopic camera the catheter then was placed through the tract. The catheter was placed low in the pelvis. The cuff of the catheter was sure to be lodged a below the rectus muscle and above the peritoneum a tunneling device was used to tunnel the catheter from this site out to the lateral exit site. The adapter to the end of the catheter was placed and a liter of saline was instilled into the abdomen while this was going the wounds were closed deep layer running 3-0 Vicryl and the skin was reapproximated for septic to the Monocryl Mastisol Steri-Strips and island dressings were applied the liter of saline was then removed from the abdomen by gravity. Dressings were applied patient was awakened and extubated operating room taken to recovery in stable condition all sponge instrument needle counts listed as correct estim ated blood loss less than 5 mL MEJIA SALAS MD May 15, 2020 09:59
--- NOTE | 2020-05-15 10:03 | DISCH ---
DISCHARGE INSTRUCTIONS Condition on Discharge Condition on Discharge: Stable Activity After Discharge Activity Instructions for Disc: Activity as tolerated, Walk in house Other activity instructions: No lifting more than 20 pounds for 2 weeks Diet after Discharge Diet after Discharge: Renal Dialysis Diet Texture: Regular Liquid Texture: Thin Liquid Wound Incision Care Wound/Incision Care: Do not change dressing Other wound/incision instructi: May shower in 24 hours Contacting the [facility] after DC Call your doctor for: If your condition worsens Follow-Up Follow up with: Dr. Salas in 2 weeks Treatment/Equipment after DC Adaptive Equipment Issued: None MEJIA SALAS MD May 15, 2020 10:03
[2020-05-15] MEDS: fentaNYL PF VIAL 100 MCG/2 ML VIAL IV PRN ×2 (10:42→11:01)
[2020-05-15 11:59] VITALS: BP 167/78
== END ==
LOC: SURG 07:24
PROVIDERS: ATTEND Surgery
DX: I13.2 Hypertensive heart and chronic kidney disease with heart failure and with stage 5 chronic kidney disease, or end stage renal disease (principal); N18.6 End stage renal disease; I50.9 Heart failure, unspecified; E11.22 Type 2 diabetes mellitus with diabetic chronic kidney disease; Z20.828 Contact with and (suspected) exposure to other viral communicable diseases; G47.33 Obstructive sleep apnea (adult) (pediatric); Z88.0 Allergy status to penicillin; Z79.899 Other long term (current) drug therapy; Z83.3 Family history of diabetes mellitus; Z79.84 Long term (current) use of oral hypoglycemic drugs
CPT/HCPCS: 36415; 80048; 82962; 87426; A7015; C1752; J1100; J1644; J1815; J1956; J2405; J2704; J2710; J3010; J3490; C9803-CS; U0003-CS